=== PATIENT | male | born 1950 | race Caucasian/White ===

== ENCOUNTER 2018-09-13 19:53 | Inpatient (IN) | payer MEDICARE, MEDICAID ==
[~2018-09-13] VITALS: Ht 172.7 cm; Wt 71.7 kg
[~2018-09-13 19:53] MED LIST: ACETAMINOPHEN650 MG RECTAL; BENZTROPINE MESY2 MG ORAL; CLOTRIMAZOLE15 GM TOPIC; COLACE100 MG ORAL; DEPAKOTE250 MG PO; DIAZEPAM10 MG ORAL; ESCITALOPRAM OX20 MG ORAL; FAMOTIDINE40 MG ORAL; LINZESS145 MCG PO; MOM30 ML ORAL; NORCO 5-325 TA1 EACH ORAL; RISPERDAL1 MG PO; SYNALAR 0.01%15 GM EXT; TOPIRAMATE100 MG ORAL; TRAZODONE HCL150 MG ORAL; [UNRECOGNIZED DRUG - CODE] PO
[2018-09-13] MEDS ORDERED: Cefepime HCl 2 GM in NS 110 ML IV STA (19:56)
[2018-09-13] MEDS ORDERED: Acetaminophen 650 MG SUPP RECTAL ONE (20:00)
[2018-09-13] MEDS ORDERED: Vancomycin 1 GM in NS 275 ML IVPB ONE (20:00)
--- NOTE | 2018-09-13 20:00 | Emergency Room Report ---
History of Present Illness General Chief Complaint: To Be Triaged Source: Caregiver Present Illness HPI Patient presents with altered mentation and cough with shortness of breath. The patient is unable to give a history at this time. 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 Nursing Documentation: PMH: Agreed; PSxH: Agreed Nursing Documentation-PMH Hx Cardiac Problems: No Hx Cancer: Yes - skin cancer Hx Gastrointestinal Problems: No Hx Neurological Problems: Yes Hx Seizures: Yes Hx Epilepsy: Yes Review of Systems All Other Systems: limited Physical Exam Vital Signs Date Time Temp Pulse Resp B/P (MAP) Pulse Ox O2 Delivery O2 Flow Rate FiO2 09/13/18 19:57 103.3 78 18 97/49 95 Room Air 09/14/18 03:24 21 09/14/18 10:20 21.0 Sp02 EP Interpretation: reviewed, normal General Appearance: mild distress, Chronically Ill Head: normocephalic Eyes: bilateral eye normal inspection, bilateral eye PERRL ENT: moist mucus membranes Neck: supple Respiratory: rhonchi Cardiovascular #1: regular rate, rhythm Cardiovascular #2: 2+ radial (R) Gastrointestinal: normal inspection, normal bowel sounds, non tender, no mass, non-distended Musculoskeletal: back normal, normal range of motion, other - Atrophy and some flexion contractures Neurologic: other - Minimally responsive and not react to painful stimuli Psychiatric: other - Stupor Skin: normal inspection, warm/dry Medical Decision Making Behavioral: Other Reaction to Intervention: No change Restraint Reassesment I, Irving Alejandre MD, have personally evaluated this patient. Laboratory tests have been reviewed and addressed accordingly. The patient is deemed to present a danger to themselves and/or others. This is based on the exam, history ( provided by patient, EMS/[facility] and/or family) and observed or reported behavior. Attempts for non-invasive measures have been considered and/or attempted, however, have been futile. It is in the best interest of the nursing staff, the patient, and others involved in this patient's care that behavioral restraints be applied. Patient evaluation reveals the following: Diagnostic Impression: Primary Impression: Right lower lobe pneumonia Qualified Codes: J18.1 - Lobar pneumonia, unspecified organism Additional Impressions: Renal insufficiency Hypoxia ER Course Patient presents with fever and cough. Differential includes sepsis, pneumonia , UTI other infection amongst others. Evaluation will be with EKG, chest x-ray and labs. A Keita will be placed. Patient be treated with Tylenol, fluid bolus and IV antibiotics. Patient complex as unable to give history and ill with h/o developmental delay. Patient hypoxemic. Oxygen started. Needs suctioning. EKG with NSR, 74, NSSTTW changes. CXR RLL infiltrate. White count normal. Hypernatremia and elevated BUN. Improved with suctioning and tx. Admit tele Dr. Garcia. Laboratory Tests Test 09/13/18 20:05 09/13/18 21:15 09/13/18 23:30 White Blood Count 8.3 K/UL (4.8-10.8) Red Blood Count 4.27 M/UL (4.70-6.10) L Hemoglobin 13.8 G/DL (14.2-18.0) L Hematocrit 41.3 % (42.0-52.0) L Mean Corpuscular Volume 97 FL (80-99) Mean Corpuscular Hemoglobin 32.3 PG (27.0-31.0) H Mean Corpuscular Hemoglobin Concent 33.4 G/DL (32.0-36.0) Red Cell Distribution Width 13.2 % (11.6-14.8) Platelet Count 145 K/UL (150-450) L Mean Platelet Volume 6.2 FL (6.5-10.1) L Neutrophils (%) (Auto) 57.1 % (45.0-75.0) Lymphocytes (%) (Auto) 23.2 % (20.0-45.0) Monocytes (%) (Auto) 18.3 % (1.0-10.0) H Eosinophils (%) (Auto) 0.1 % (0.0-3.0) Basophils (%) (Auto) 1.3 % (0.0-2.0) Prothrombin Time 10.8 SEC (9.30-11.50) Prothrombin Time INR 1.0 (0.9-1.1) PTT 35 SEC (23-33) H Sodium Level 146 MMOL/L (136-145) H Potassium Level 3.8 MMOL/L (3.5-5.1) Chloride Level 106 MMOL/L (98-107) Carbon Dioxide Level 24 MMOL/L (21-32) Anion Gap 16 mmol/L (5-15) H Blood Urea Nitrogen 20 mg/dL (7-18) H Creatinine 1.4 MG/DL (0.55-1.30) H Estimate Glomerular Filtration Rate 50.4 mL/min (>60) Glucose Level 93 MG/DL (74-106) Lactic Acid Level 1.80 mmol/L (0.4-2.0) 1.20 mmol/L (0.66-2.22) Calcium Level 9.0 MG/DL (8.5-10.1) Phosphorus Level 2.9 MG/DL (2.5-4.9) Magnesium Level 2.1 MG/DL (1.8-2.4) Total Bilirubin 0.3 MG/DL (0.2-1.0) Aspartate Amino Transferase (AST) 23 U/L (15-37) Alanine Aminotransferase (ALT) 14 U/L (12-78) Alkaline Phosphatase 53 U/L (46-116) Total Creatine Kinase 190 U/L (26-308) Troponin I 0.000 ng/mL (0.000-0.056) Pro-B-Type Natriuretic Peptide 954 pg/mL (0-125) H Total Protein 8.1 G/DL (6.4-8.2) Albumin 3.2 G/DL (3.4-5.0) L Globulin 4.9 g/dL Albumin/Globulin Ratio 0.7 (1.0-2.7) L Lipase 88 U/L (73-393) Valproic Acid Level 65 MCG/ML (50-100) Urine Color Yellow Urine Appearance Clear Urine pH 6.5 (4.5-8.0) Urine Specific [place] 1.010 (1.005-1.035) Urine Protein 2+ (NEGATIVE) H Urine Glucose (UA) Negative (NEGATIVE) Urine Ketones 1+ (NEGATIVE) H Urine Blood Negative (NEGATIVE) Urine Nitrite Negative (NEGATIVE) Urine Bilirubin Negative (NEGATIVE) Urine Urobilinogen 1 MG/DL (0.0-1.0) H Urine Leukocyte Esterase 1+ (NEGATIVE) H Urine RBC 0-2 /HPF (0 - 0) H Urine WBC 2-4 /HPF (0 - 0) Urine Squamous Epithelial Cells Occasional /LPF Urine Bacteria Few /HPF (NONE) Urine Mucus Many /LPF (NONE/OCC) H Microbiology Date/Time Source Procedure Growth Status 09/13/18 21:45 Nasal Nares Influenza Types A,B Antigen (NIKHIL) - Final Complete EKG Diagnostic Results Rate: normal Rhythm: NSR ST Segments: no acute changes Rhythm Strip Diag. Results EP Interpretation: yes Rhythm: NSR, no PVC's, no ectopy Chest X-Ray Diagnostic Results Chest X-Ray Diagnostic Results : Chest X-Ray Ordered: Yes # of Views/Limited/Complete: 1 View Indication: Shortness of Breath EP Interpretation: Yes Interpretation: no effusion, no pneumothorax, other - RLL infiltrate Impression: Other Electronically Signed by: Electronically signed by Irving Alejandre MD Last Vital Signs Date Time Temp Pulse Resp B/P (MAP) Pulse Ox O2 Delivery O2 Flow Rate FiO2 09/14/18 00:40 101.2 80 19 103/55 95 Room Air Status: improved Disposition: ADMITTED INPATIENT Condition: Serious Irving Alejandre MD Sep 13, 2018 20:00
--- NOTE | 2018-09-13 20:00 | NUR ---
ED Nurse Note: Patient arrived by walk in along with chronic care nurse. complaint of shortness of breath and congestion x 1 day.
[2018-09-13 20:30] VITALS: BP 103/55
[2018-09-13 20:39] LABS: BASOPHILS % (AUTO) 1.3 % (0.0-2.0); EOSINOPHILS % (AUTO) 0.1 % (0.0-3.0); HEMATOCRIT 41.3 % (42.0-52.0); HEMOGLOBIN 13.8 G/DL (14.2-18.0); LYMPHOCYTES % (AUTO) 23.2 % (20.0-45.0); MEAN CORPUSCULAR VOLUME 97 FL (80-99); MONOCYTES % (AUTO) 18.3 % (1.0-10.0); NEUTROPHILS % (AUTO) 57.1 % (45.0-75.0); PLATELET COUNT 145 K/UL (150-450); RED BLOOD COUNT 4.27 M/UL (4.70-6.10); RED CELL DISTRIBUTION WIDTH 13.2 % (11.6-14.8); WHITE BLOOD COUNT 8.3 K/UL (4.8-10.8)
--- NOTE | 2018-09-13 20:45 | NUR ---
ED Nurse Note: Patient is uncooperative for therapy, restraints applied. Patient caregiver now at bedside.
[2018-09-13 20:55] LABS: ANION GAP 16 mmol/L (5-15); BLOOD UREA NITROGEN 20 mg/dL (7-18); CARBON DIOXIDE 24 MMOL/L (21-32); CHLORIDE 106 MMOL/L (98-107); CREATININE 1.4 MG/DL (0.55-1.30); POTASSIUM 3.8 MMOL/L (3.5-5.1); SODIUM 146 MMOL/L (136-145)
[2018-09-13 21:08] LABS: ALANINE AMINOTRANSFERASE 14 U/L (12-78); ALBUMIN 3.2 G/DL (3.4-5.0); ALBUMIN/GLOBULIN RATIO 0.7 (1.0-2.7); ALKALINE PHOSPHATASE 53 U/L (46-116); ASPARTATE AMINO TRANSFERASE 23 U/L (15-37); BILIRUBIN,TOTAL 0.3 MG/DL (0.2-1.0); CREATINE KINASE 190 U/L (26-308); PHOSPHORUS 2.9 MG/DL (2.5-4.9)
[2018-09-13 21:38] LABS: APPEARANCE,URINE CLEAR; BILIRUBIN, URINE NEGATIVE (NEGATIVE); GLUCOSE, URINE (UA) NEGATIVE (NEGATIVE); KETONES,URINE 1+ (NEGATIVE); LEUKOCYTE ESTERASE ,URINE 1+ (NEGATIVE); NITRITE,URINE NEGATIVE (NEGATIVE); PH,URINE 6.5 (4.5-8.0); PROTEIN,URINE 2+ (NEGATIVE); UROBILINOGEN,URINE 1 MG/DL (0.0-1.0)
[2018-09-13 21:39] LABS: COLOR,URINE YELLOW
[2018-09-13] MEDS ORDERED: OMEPRAZOLE20 M2 ORAL (21:41)
[2018-09-13] MEDS ORDERED: NAMENDA10 MG ORAL (21:44)
[2018-09-13] MEDS ORDERED: MILK OF MA400 MG/51 ORAL (21:44)
[2018-09-13] MEDS ORDERED: MELATONIN 3 MG1 EAC1 PO (21:44)
--- NOTE | 2018-09-13 21:54 | NUR ---
ED Nurse Note: patient is content, awake and alert, nonverbal is baseline. vital signs are stable. O2 applied because patient desaturated to 86%, ERMD aware, RT called to bedside to suction patient. O2 sat improved to 92%.
[2018-09-14] MEDS ORDERED: Tums 500mg ORAL PRN (00:30)
[2018-09-14] MEDS ORDERED: HYDROcodone/Acetamin 5/325 tab ORAL PRN (00:30)
[2018-09-14] MEDS ORDERED: Acetaminophen 650 MG SUPP RECTAL PRN (00:30)
--- NOTE | 2018-09-14 00:40 | NUR ---
ED Nurse Note: Report called in to kalie WICK. patient tolerated transport well. removed nasal canula upon arrival. Patient has no s/s of acute distress.
[2018-09-14 01:00] VITALS: BP 112/59
--- NOTE | 2018-09-14 01:00 | NUR ---
NURSE NOTES: Patient arrived via gurney from ED. Report received from SHAMIKA Pastor. Patient placed into bed with guard rails up and bed placed in lowest position. Patient has been cleaned and dressed with new linens, quality assurance monitor final placed, vital signs are stable, seizure precautions implemented and patient shows no signs of pain and or distress. Will initiate plan of care.
[2018-09-14] MEDS: Albuterol/Ipratropium 3ml neb HHN SCH ×6 (03:24→23:31)
[2018-09-14 04:00] VITALS: BP 159/74
--- NOTE | 2018-09-14 04:21 | NUR ---
NURSE NOTES: Left urgent message for Dr. Garcia for additional admission orders: 1. confirming code status, 2. O2 order/PRN, 3. bilateral wrist restraints. MD was aware that bilateral wrist restraints were placed in the ED. Patient is seen trying to climb out of bed, removing treatment lines and removing IVs. Awaiting call back.
--- NOTE | 2018-09-14 06:28 | NUR ---
NURSE NOTES: Second attempt made to Dr. Garcia urgent line regarding additional admission orders. Awaiting call back.
--- NOTE | 2018-09-14 07:15 | NUR ---
HAND-OFF: Report given to SHAMIKA Zepeda.
--- NOTE | 2018-09-14 07:16 | NUR ---
NURSE NOTES: Received patient in bed. Awake, confused, not cooperating with staff. Placed bed in lowest position.
[2018-09-14 08:00] VITALS: BP 109/80
--- NOTE | 2018-09-14 08:00 | NUR ---
NURSE NOTES: Patient not cooperating with care. Bilateral soft wrist restraints inplace. Patient trying to remove and pull IV lines.
[2018-09-14 08:25] LABS: BASOPHILS % (AUTO) 1.1 % (0.0-2.0); HEMATOCRIT 36.3 % (42.0-52.0); LYMPHOCYTES % (AUTO) 16.1 % (20.0-45.0); MEAN CORPUSCULAR VOLUME 97 FL (80-99); MONOCYTES % (AUTO) 14.7 % (1.0-10.0); NEUTROPHILS % (AUTO) 68.1 % (45.0-75.0); PLATELET COUNT 124 K/UL (150-450); RED BLOOD COUNT 3.75 M/UL (4.70-6.10); RED CELL DISTRIBUTION WIDTH 13.4 % (11.6-14.8); WHITE BLOOD COUNT 6.4 K/UL (4.8-10.8)
[2018-09-14 08:31] LABS: ALANINE AMINOTRANSFERASE 11 U/L (12-78); ALBUMIN 2.3 G/DL (3.4-5.0); ALBUMIN/GLOBULIN RATIO 0.6 (1.0-2.7); ALKALINE PHOSPHATASE 42 U/L (46-116); ANION GAP 11 mmol/L (5-15); ASPARTATE AMINO TRANSFERASE 24 U/L (15-37); BILIRUBIN,TOTAL 0.4 MG/DL (0.2-1.0); BLOOD UREA NITROGEN 17 mg/dL (7-18); CALCIUM 7.7 MG/DL (8.5-10.1); CARBON DIOXIDE 20 MMOL/L (21-32); CHLORIDE 111 MMOL/L (98-107); CREATININE 0.9 MG/DL (0.55-1.30); POTASSIUM 3.6 MMOL/L (3.5-5.1); SODIUM 142 MMOL/L (136-145)
[2018-09-14] MEDS: Azithromycin 500 MG in NS 275 ML IV SCH (08:36)
[2018-09-14] MEDS: Memantine 10mg tab ORAL SCH ×2 (09:23→17:47)
[2018-09-14] MEDS: Topiramate 100mg tab ORAL SCH ×2 (09:23→22:05)
[2018-09-14] MEDS: Docusate 100mg cap ORAL SCH ×2 (09:23→17:33)
[2018-09-14] MEDS: Magnesium Oxide 400mg tab ORAL SCH ×3 (09:24→17:47)
[2018-09-14] MEDS: Heparin 5000 units/ml inj SUBQ SCH ×2 (09:25→21:00)
--- NOTE | 2018-09-14 11:13 | Diagnostic Imaging Report ---
Indication: Shortness of breath Technique: One view of the chest Comparison: Findings: Interim development the pleural spaces remain clear. The heart size is upper limits of normal interstitial and airspace edema, greater on the right than on the left. Impression: Bilateral interstitial and airspace infiltrates versus edema, right greater than left, developing since 09/13/2018
[2018-09-14 12:00] VITALS: BP 90/51
--- NOTE | 2018-09-14 12:25 | Diagnostic Imaging Report ---
Indication: Chest pain Technique: One view of the chest Comparison: none Findings: There is some atelectasis in the right midlung. The lungs and pleural spaces are otherwise clear. The heart size is normal Impression: Midlung atelectasis. No acute process otherwise
--- NOTE | 2018-09-14 13:25 | NUR ---
CASE MANAGEMENT:REVIEW 67 YR OLD MALE FROM HOME WITH CAREGIVER CC: DIFFICULTY BREATHING SI: PNEUMONIA 103.2 78 18 97/49 95% ON RA BUN+20 CR+1.4 IS: IV LEVAQUIN IV CEFEPIME IV VANCOMYCIN BLOOD CX CHEST XRAY : TO TELEMETRY UNIT *INTERQUAL CRITERIA MET
[2018-09-14] MEDS: cefTRIAXone 1gm/D5W 55ml IVPB SCH ×2 (14:52)
[2018-09-14 16:00] VITALS: BP 94/55
--- NOTE | 2018-09-14 18:00 | NUR ---
NURSE NOTES: Tolerating soft diet, assisted with dinner meal.
--- NOTE | 2018-09-14 19:20 | NUR ---
NURSE NOTES: Received report from Yonas Lang RN. Pt is resting in the bed w/o distressin 4L NC. HOB 30 degree. B. wrist soft restrain are applied and asymptomatic. Bed alarm on, bed in lowest, padded side rails up x3, and breaks are engaged. Call light and side table are w/in reach. Will follow plans of care.
--- NOTE | 2018-09-14 19:30 | NUR ---
HAND-OFF: Report given to Deya Stover RN.
[2018-09-14 20:00] VITALS: BP 107/60
[2018-09-14] MEDS ORDERED: TraZODone 50mg tab ORAL ONE (21:00)
--- NOTE | 2018-09-14 23:42 | History & Physical ---
History of Present Illness General Date patient seen: Sep 14, 2018 Reason for Hospitalization: Dyspnea/Respdistress Present Illness HPI 67 year old male with pmh sig for severe mental retardation, PICA, skin cancer with two day history of cough and chest congestion with wheezing and respiratory distress. patient was seen in ER and noted to have possible pneumonia and was pancultured and admitted for IV antibiotics and respiratory treatments. Allergies: Coded Allergies: No Known Allergies (Unverified , 10/20/14) Medication History Scheduled Benztropine Mesylate* (Benztropine Mesylate*), 2 MG ORAL BID, (Reported) Calcium Carbonate ([id number]), 500 MG PO DAILY, (Reported) Clotrimazole* (Lotrimin*), 1 APPLIC TOPIC PRN, (Reported) Diazepam* (Diazepam*), 10 MG ORAL PRN, (Reported) Divalproex Sodium* (Depakote*), 250 MG PO Q12HR, (Reported) Docusate Sodium* (Colace*), 100 MG ORAL TWICE A DAY, (Reported) Escitalopram Oxalate (Escitalopram Oxalate*), 20 MG ORAL DAILY, (Reported) Famotidine (Famotidine), 40 MG ORAL EVERY 12 HOURS, (Reported) Fluocinolone Acet (Fluocinolone Acetonide), 15 GM EXT PRN, (Reported) Linaclotide (Linzess), 145 MCG PO DAILY, (Reported) Magnesium Hydroxide (Milk of Magnesia), 30 ML ORAL DAILY, (Reported) Magnesium Hydroxide* (Milk Of Magnesia*), 30 ML ORAL DAILY, (Reported) Memantine Hcl* (Namenda*), 10 MG ORAL TWICE A DAY, (Reported) Omeprazole (Omeprazole), 20 MG ORAL DAILY, (Reported) Risperidone* (Risperdal*), 3 MG PO BID, (Reported) Topiramate* (Topamax*), 100 MG ORAL TWICE A DAY, (Reported) Trazodone* (Trazodone*), 150 MG ORAL BEDTIME, (Reported) Scheduled PRN Acetaminophen* (Acetaminophen*), 650 MG RECTAL Q6H PRN for For Pain, (Reported) Hydrocodone Bit/Acetaminophen 5-325* (Andrews 5-325*), 1 TAB ORAL Q6H PRN for For Pain, (Reported) Miscellaneous Medications Melatonin/Pyridoxine HCl (B6) (Melatonin 3 mg Tablet), 1 EACH PO, (Reported) Patient History Limited by: medical condition History Provided By: Medical Record, Caregiver Healthcare decision maker [facility] Resuscitation status Full Code Advanced Directive on File Patient History Narrative PICA, seizure didorder, severe mental retardation, skin cancer Family History Family History: Patient reports no known family medical history. Review of Systems Review of Symptoms General ROS: no weight loss or fever Psychological ROS: no depression or mood changes, no memory loss Ophthalmic ROS: no visual changes or eye irritation ENT ROS: no nasal congestion, hearing loss, dizziness Allergy and Immunology ROS: no allergic symptoms or urticaria Hematological and Lymphatic ROS: no swollen glands, unusual bleeding or bruising Endocrine ROS: no polyuria, polydipsia, weight changes, temperature intolerance Respiratory ROS: no cough, shortness of breath, or wheezing Cardiovascular ROS: no chest pain or dyspnea on exertion Gastrointestinal ROS: denies abdominal pain, bright red blood in stool. Musculoskeletal ROS: no myalgias or arthralgias Neurological ROS: no TIA or stroke symptoms Dermatological ROS: no new or changing skin lesions, rashes or pruritis Physical Exam Physical Exam General appearance: alert, cooperative, no distress, appears stated age Head: Normocephalic, without obvious abnormality, atraumatic Eyes: conjunctivae/corneas clear. PERRL, EOM's intact. Fundi benign Throat: Lips, mucosa, and tongue normal. Teeth and gums normal Neck: supple, symmetrical, trachea midline, no adenopathy, thyroid: not enlarged, symmetric, no tenderness/mass/nodules, no carotid bruit and no JVD Lungs: clear to auscultation bilaterally Heart: regular rate and rhythm, S1, S2 normal, no murmur, click, rub or gallop Abdomen: soft, non-tender. Bowel sounds normal. No masses, no organomegaly Extremities: extremities normal, atraumatic, no cyanosis or edema Pulses: 2+ and symmetric Skin: Skin color, texture, turgor normal. No rashes or lesions Neurologic: Grossly normal Last 24 Hour Vital Signs Date Time Temp Pulse Resp B/P (MAP) Pulse Ox O2 Delivery O2 Flow Rate FiO2 09/14/18 20:10 74 18 97 Nasal Cannula 2.0 28 09/14/18 20:00 94 Nasal Cannula 2.0 28 09/14/18 20:00 Nasal Cannula 2.0 28 09/14/18 20:00 71 18 94 Nasal Cannula 2.0 28 09/14/18 16:00 98.1 73 20 94/55 (68) 95 09/14/18 16:00 Nasal Cannula 4.0 09/14/18 15:34 70 09/14/18 15:27 98 20 98 Room Air 21 09/14/18 15:27 98 20 98 Room Air 21.0 09/14/18 15:18 68 18 92 Room Air 21 09/14/18 15:18 68 18 92 Room Air 21 09/14/18 12:00 97.5 92 20 90/51 (64) 94 09/14/18 11:50 Venturi Mask 09/14/18 11:37 70 09/14/18 10:20 90 10 96 Room Air 21.0 09/14/18 10:20 90 20 96 Room Air 21 09/14/18 10:15 88 20 96 Room Air 21 09/14/18 10:15 88 20 96 Room Air 21 09/14/18 09:00 Room Air 09/14/18 08:00 97.7 78 18 109/80 (90) 95 09/14/18 07:48 77 09/14/18 07:13 90 20 97 Room Air 21 09/14/18 07:07 80 20 95 Room Air 21 09/14/18 04:18 88 20 Room Air 21 09/14/18 04:00 98.9 55 17 159/74 (102) 100 09/14/18 03:39 84 09/14/18 03:34 89 20 95 Room Air 21 09/14/18 03:24 86 20 94 Room Air 21 09/14/18 01:00 98.0 73 17 112/59 (76) 90 09/14/18 01:00 Room Air 09/14/18 01:00 Room Air 09/14/18 00:40 101.2 80 19 103/55 95 Room Air Intake and Output 09/13/18 09/14/18 18:59 06:59 Intake Total 3100 ml Balance 3100 ml Intake Oral 0 ml IV Total 3100 ml # Bowel Movements 2 Laboratory Tests Test 09/14/18 07:35 White Blood Count 6.4 K/UL (4.8-10.8) Red Blood Count 3.75 M/UL (4.70-6.10) L Hemoglobin 12.0 G/DL (14.2-18.0) L Hematocrit 36.3 % (42.0-52.0) L Mean Corpuscular Volume 97 FL (80-99) Mean Corpuscular Hemoglobin 31.9 PG (27.0-31.0) H Mean Corpuscular Hemoglobin Concent 33.0 G/DL (32.0-36.0) Red Cell Distribution Width 13.4 % (11.6-14.8) Platelet Count 124 K/UL (150-450) L Mean Platelet Volume 6.3 FL (6.5-10.1) L Neutrophils (%) (Auto) 68.1 % (45.0-75.0) Lymphocytes (%) (Auto) 16.1 % (20.0-45.0) L Monocytes (%) (Auto) 14.7 % (1.0-10.0) H Eosinophils (%) (Auto) 0.0 % (0.0-3.0) Basophils (%) (Auto) 1.1 % (0.0-2.0) Sodium Level 142 MMOL/L (136-145) Potassium Level 3.6 MMOL/L (3.5-5.1) Chloride Level 111 MMOL/L (98-107) H Carbon Dioxide Level 20 MMOL/L (21-32) L Anion Gap 11 mmol/L (5-15) Blood Urea Nitrogen 17 mg/dL (7-18) Creatinine 0.9 MG/DL (0.55-1.30) Estimat Glomerular Filtration Rate > 60 mL/min (>60) Glucose Level 86 MG/DL (74-106) Calcium Level 7.7 MG/DL (8.5-10.1) L Total Bilirubin 0.4 MG/DL (0.2-1.0) Aspartate Amino Transf (AST/SGOT) 24 U/L (15-37) Alanine Aminotransferase (ALT/SGPT) 11 U/L (12-78) L Alkaline Phosphatase 42 U/L (46-116) L Total Protein 6.1 G/DL (6.4-8.2) L Albumin 2.3 G/DL (3.4-5.0) L Globulin 3.8 g/dL Albumin/Globulin Ratio 0.6 (1.0-2.7) L Height (Feet): 5 Height (Inches): 8.00 Weight (Pounds): 160 Medications Current Medications Medications (Trade) Dose Ordered Sig/Adams Route PRN Reason Start Time Stop Time Status Last Admin Dose Admin Acetaminophen (Tylenol) 650 mg Q6H PRN RECTAL Mild Pain (Pain Scale 1-3) 09/14/18 00:30 10/14/18 00:29 Acetaminophen/ Hydrocodone Bitart (Andrews 5/325) 1 tab Q6H PRN ORAL For Pain 09/14/18 00:30 09/21/18 00:29 Albuterol/ Ipratropium (Albuterol/ Ipratropium) 3 ml Q4HRT HHN 09/14/18 03:00 09/19/18 02:59 09/14/18 20:00 Azithromycin 500 mg/Sodium Chloride 275 ml @ 275 mls/hr DAILY IV 09/14/18 09:00 09/21/18 08:59 09/14/18 08:36 Calcium Carbonate (Tums) 500 mg Q3H PRN ORAL flatulence 09/14/18 00:30 10/14/18 00:29 Ceftriaxone Sodium 1 gm/ Dextrose 55 ml @ 110 mls/hr DAILY IVPB 09/14/18 15:00 09/21/18 14:59 09/14/18 14:52 Divalproex Sodium (Depakote) 250 mg EVERY 12 HOURS ORAL 09/14/18 09:00 10/14/18 08:59 09/14/18 22:06 Docusate Sodium (Colace) 100 mg TWICE A DAY ORAL 09/14/18 09:00 10/14/18 08:59 09/14/18 09:23 Escitalopram Oxalate (Lexapro) 20 mg DAILY ORAL 09/14/18 09:00 10/14/18 08:59 09/14/18 09:24 Heparin Sodium (Porcine) (Heparin 5000 units/ml) 5,000 units EVERY 12 HOURS SUBQ 09/14/18 09:00 10/14/18 08:59 09/14/18 09:25 Magnesium Oxide (Mag-Ox 400mg) 400 mg THREE TIMES A DAY ORAL 09/14/18 09:00 10/14/18 08:59 09/14/18 17:47 Memantine (Namenda) 10 mg BID ORAL 09/14/18 09:00 10/14/18 08:59 09/14/18 17:47 Risperidone (RisperDAL) 3 mg BID ORAL 09/14/18 09:00 10/14/18 08:59 09/14/18 17:47 Topiramate (Topamax) 100 mg EVERY 12 HOURS ORAL 09/14/18 09:00 10/14/18 08:59 09/14/18 22:05 MIPS Hospital declaration INPATIENT level of care is warranted for this patient because patient is a 89 year old with who presents with suspicion of . I have a high level of concern because . Patient is at high risk for . Plan of care/treatment include . Patient care is expected to be greater than 2 midnights. OBSERVATION level of care is warranted for this patient. Patient is a 89 year old with who presents with . Patient will be admitted for 1 midnight, but if additional night(s) is/are necessary, patient will be converted to inpatient status for the entire hospitalization Disposition: Once the patient is stable to leave the hospital, I anticipate the patient will likely be discharged to the following environment: Estimated discharge date: I spent 70 minutes on this patient's case, and minutes was dedicated to counseling and/or care coordination. MIPS (Merit-based Incentive Payment System) Applicable CPT: 74551, 73204 CHECK ALL THAT ARE MET: Measure #5 (CHF): All ages. Prescribe SANJEEV/ARB upon discharge for patients with left ventricular systolic dysfunction. If not, the reason is clearly documented in the medical chart. Measure #8 (CHF): All ages. Prescribe a beta live upon discharge for patients with left ventricular systolic dysfunction. If not, the reason is clearly documented in the medical chart. Measure #47 Advance care plan or surrogate decision maker documented in the medical record. Measure #130 The provider has documented, updated, or reviewed the patients current medication list and has documented it in the patients note. Measure #374 (All): Send report to referring provider. Measure #407(Sepsis due to MSSA bacteremia): Age 18+ Patient treated with a beta-lactam antibiotic (Nafcillin, Oxacillin or Cefazolin) as definitive therapy. MEDICAL COMPLEXITY High complexity medical decision making (need 2/3 categories) Problem - need 4 points Acute/new problem with new plan for workup (4 points, 1 max) Acute/new problem without additional workup (3 points, 1 max) Unstable chronic problem actively being managed (2 point each, 2 max) Stable chronic problem actively being managed (1 point each, 2 max) Self-limited/transient process (constipation, muscle ache, etc) (1 point each , 2 max) Data - need 4 points Reviewed labs/imaging studies (1 points, 2 max) Independent review of imaging (EKG, xrays, etc) (2 points, 2 max) Discussed case with consult/other MD/RN (2 points, 2 max) High Risk - qualify if have one of the following: Severe exacerbation of acute problem, acute mental status change, IV narcotics , monitoring drug levels (vancomycin, INR, tacrolimus etc) Assessment/Plan Problems: (1) Right lower lobe pneumonia (2) Constipation (3) Depression (4) Seizure disorder (5) Mental retardation (6) Development delay (7) Renal insufficiency (8) Hypoxia Assessment/Plan plan: - admit to med/surg - Duoneb q 4 - oxygen 2 L nc - ID and cardiology consult - echo - repeat chest xray - IV Ceftriaxone and Azithromycin - VTE prophylaxis with Heparin sq bid - Tylenol Prn pain fever - Psychiatry consult for agitation - soft bilateral wrist restraints - clinical laboratory director to assist with meals - pica precautions discussed with nurse - am labs Orlin Garcia MD Sep 14, 2018 23:42
[2018-09-15] VITALS (8 sets, daily range): BP systolic 99–145; BP diastolic 50–77
--- NOTE | 2018-09-15 00:44 | NUR ---
NURSE NOTES: Pt was cleaned, dried, and repositioned. No distress noted. Will continue to monitor.
[2018-09-15] MEDS: Albuterol/Ipratropium 3ml neb HHN SCH ×5 (03:52→19:00)
--- NOTE | 2018-09-15 03:59 | NUR ---
HAND-OFF: Report given to SHAMIKA Osorio.
--- NOTE | 2018-09-15 04:00 | NUR ---
NURSE NOTES: Received report from Lew Ferreira RN. Patient in bed with HOB elevated at semi fowlers with no S/S of acute pain at this time. Kept clean, dry, and comfortable in bed at all times. Patient is non-verbal but reacts to tactile and verbal stimuli. IV line intact and patent and kept SL. Placed on continuous cardiac monitoring per protocol. Bilateral soft wrist restraints in place d/t pulling out of tubes and trying to get out of bed, and renewal order made. Patient is incontinent and is turned Q2 and cleaned PRN. Safety precaution in place; siderails X3 up, call light within reach, bed in lowest position, brakes and alarm on at all times. Placed on Venturi mask at this time at 35% Fi02 at 6L, tolerating well with no S./S of resp distress or SOB; saturating at 95-96%. Needs and wants anticipated and attended, will continue plan of care and monitor for any cghanges noted.
--- NOTE | 2018-09-15 07:10 | NUR ---
HAND-OFF: Report given to Devan Daniels RN. Patient in bed awake with no S/S of distress or SOB. Endorsed plan of care.
[2018-09-15] MEDS: Azithromycin 500 MG in NS 275 ML IV SCH (09:00)
[2018-09-15] MEDS: Heparin 5000 units/ml inj SUBQ SCH ×2 (09:00→20:56)
[2018-09-15] MEDS: Topiramate 100mg tab ORAL SCH ×2 (09:52→20:54)
[2018-09-15] MEDS: Docusate 100mg cap ORAL SCH ×2 (09:52→17:14)
[2018-09-15] MEDS: Magnesium Oxide 400mg tab ORAL SCH ×3 (09:52→17:14)
[2018-09-15] MEDS: Memantine 10mg tab ORAL SCH (10:12)
--- NOTE | 2018-09-15 10:14 | Cardiac Electrophysiology PN ---
Subjective Subjective [id number] Objective Last 24 Hour Vital Signs Date Time Temp Pulse Resp B/P (MAP) Pulse Ox O2 Delivery O2 Flow Rate FiO2 09/15/18 07:15 80 18 97 Venturi Mask 6.0 35 09/15/18 07:09 Venturi Mask 6.0 35 09/15/18 07:09 90 18 96 Venturi Mask 6.0 35 09/15/18 07:09 96 Venturi Mask 6.0 35 09/15/18 04:02 74 18 97 Venturi Mask 6.0 35 09/15/18 04:00 98.0 52 18 145/66 (92) 97 09/15/18 04:00 69 09/15/18 03:52 77 18 95 Venturi Mask 6.0 35 09/15/18 00:00 98.9 86 18 107/63 (78) 97 09/14/18 23:41 77 18 96 Venturi Mask 6.0 35 09/14/18 23:31 73 18 92 Nasal Cannula 2.0 28 09/14/18 23:29 72 09/14/18 21:00 Venturi Mask 6.0 09/14/18 20:10 74 18 97 Nasal Cannula 2.0 28 09/14/18 20:00 98.8 74 18 107/60 (76) 95 09/14/18 20:00 94 Nasal Cannula 2.0 28 09/14/18 20:00 Nasal Cannula 2.0 28 09/14/18 20:00 71 18 94 Nasal Cannula 2.0 28 09/14/18 19:27 79 09/14/18 16:00 98.1 73 20 94/55 (68) 95 09/14/18 16:00 Nasal Cannula 4.0 09/14/18 15:34 70 09/14/18 15:27 98 20 98 Room Air 21 09/14/18 15:27 98 20 98 Room Air 21.0 09/14/18 15:18 68 18 92 Room Air 21 09/14/18 15:18 68 18 92 Room Air 21 09/14/18 12:00 97.5 92 20 90/51 (64) 94 09/14/18 11:50 Venturi Mask 09/14/18 11:37 70 09/14/18 10:20 90 10 96 Room Air 21.0 09/14/18 10:20 90 20 96 Room Air 21 09/14/18 10:15 88 20 96 Room Air 21 09/14/18 10:15 88 20 96 Room Air 21 Intake and Output 09/14/18 09/15/18 19:00 07:00 Intake Total 570 ml Balance 570 ml Intake Oral 240 ml IV Total 330 ml # Voids 1 2 # Bowel Movements 2 Laboratory Tests Test 09/15/18 05:23 Pro-B-Type Natriuretic Peptide 2295 pg/mL (0-125) H Microbiology Date/Time Source Procedure Growth Status 09/13/18 20:05 Blood Blood Culture - Preliminary NO GROWTH AFTER 24 HOURS Resulted 09/13/18 20:00 Blood Blood Culture - Preliminary NO GROWTH AFTER 24 HOURS Resulted 09/13/18 21:45 Nasal Nares Influenza Types A,B Antigen (NIKHIL) - Final Complete Sebas Momin MD Sep 15, 2018 10:14
[2018-09-15] MEDS: cefTRIAXone 1gm/D5W 55ml IVPB SCH ×2 (10:15)
[2018-09-15] MEDS ORDERED: LORazepam 1mg tab ORAL PRN (12:00)
--- NOTE | 2018-09-15 12:49 | General Progress Note ---
Assessment/Plan Problem List: (1) Right lower lobe pneumonia ICD Codes: J18.1 - Lobar pneumonia, unspecified organism SNOMED: 217117592 (2) Constipation ICD Codes: K59.00 - Constipation SNOMED: 62419019 (3) Depression ICD Codes: F32.9 - Depression SNOMED: 70413812 (4) Seizure disorder ICD Codes: G40.909 - Seizure disorder SNOMED: 653068109 (5) Mental retardation ICD Codes: F79 - Mental retardation SNOMED: 93224085 (6) Development delay ICD Codes: R62.50 - Development delay SNOMED: 860486046 (7) Renal insufficiency ICD Codes: N28.9 - Disorder of kidney and ureter, unspecified SNOMED: 623355422, 727118179 (8) Hypoxia ICD Codes: R09.02 - Hypoxemia SNOMED: 084162532, 914208658 Status: doing well Assessment/Plan Assessment/Plan Problems: (1) Right lower lobe pneumonia (2) Constipation (3) Depression (4) Seizure disorder (5) Mental retardation (6) Development delay (7) Renal insufficiency (8) Hypoxia Assessment/Plan plan: - admit to med/surg - Duoneb q 4 - oxygen 2 L nc - ID and cardiology consult - echo - repeat chest xray - IV Ceftriaxone and Azithromycin - VTE prophylaxis with Heparin sq bid - Tylenol Prn pain fever - Psychiatry consult for agitation - soft bilateral wrist restraints - import export clerk to assist with meals - pica precautions discussed with nurse - am labs fu cardiology recommendations ID consult pending ok to dc telemetry Subjective Date patient seen: Sep 15, 2018 Allergies: Coded Allergies: No Known Allergies (Unverified , 10/20/14) All Systems: reviewed and negative except above Objective Last 24 Hour Vital Signs Date Time Temp Pulse Resp B/P (MAP) Pulse Ox O2 Delivery O2 Flow Rate FiO2 09/15/18 10:24 82 18 96 Nasal Cannula 3.0 32 09/15/18 10:14 88 18 94 Room Air 21 09/15/18 08:00 98.9 72 20 117/65 (82) 96 09/15/18 07:55 67 09/15/18 07:15 80 18 97 Venturi Mask 6.0 35 09/15/18 07:09 Venturi Mask 6.0 35 09/15/18 07:09 90 18 96 Venturi Mask 6.0 35 09/15/18 07:09 96 Venturi Mask 6.0 35 09/15/18 04:02 74 18 97 Venturi Mask 6.0 35 09/15/18 04:00 98.0 52 18 145/66 (92) 97 09/15/18 04:00 69 09/15/18 03:52 77 18 95 Venturi Mask 6.0 35 09/15/18 00:00 98.9 86 18 107/63 (78) 97 09/14/18 23:41 77 18 96 Venturi Mask 6.0 35 09/14/18 23:31 73 18 92 Nasal Cannula 2.0 28 09/14/18 23:29 72 09/14/18 21:00 Venturi Mask 6.0 09/14/18 20:10 74 18 97 Nasal Cannula 2.0 28 09/14/18 20:00 98.8 74 18 107/60 (76) 95 09/14/18 20:00 94 Nasal Cannula 2.0 28 09/14/18 20:00 Nasal Cannula 2.0 28 09/14/18 20:00 71 18 94 Nasal Cannula 2.0 28 09/14/18 19:27 79 09/14/18 16:00 98.1 73 20 94/55 (68) 95 09/14/18 16:00 Nasal Cannula 4.0 09/14/18 15:34 70 09/14/18 15:27 98 20 98 Room Air 21 09/14/18 15:27 98 20 98 Room Air 21.0 09/14/18 15:18 68 18 92 Room Air 21 09/14/18 15:18 68 18 92 Room Air 21 Intake and Output 09/14/18 09/15/18 19:00 07:00 Intake Total 570 ml Balance 570 ml Intake Oral 240 ml IV Total 330 ml # Voids 1 2 # Bowel Movements 2 Laboratory Tests 09/15/18 05:23: Pro-B-Type Natriuretic Peptide 2295H Height (Feet): 5 Height (Inches): 8.00 Weight (Pounds): 160 General Appearance: no apparent distress, alert EENT: PERRL/EOMI, pharynx normal Neck: non-tender, supple Cardiovascular: normal rate, regular rhythm, no gallop/murmur, no JVD Respiratory/Chest: chest wall non-tender, normal breath sounds, no respiratory distress Abdomen: non tender, soft, no mass Extremities: non-tender, normal inspection, no calf tenderness Edema: no edema noted Arm (L), no edema noted Arm (R), no edema noted Leg (L), no edema noted Leg (R), no edema noted Pedal (L), no edema noted Pedal (R), no edema noted Generalized Neurologic: alert Skin: warm/dry Lymphatic: normal anterior cervical (L), normal anterior cervical (R), normal posterior cervical (L), normal posterior cervical (R), normal submandibular (L) , normal submandibular (R), normal supraclavicular (L), normal supraclavicular ( R), normal axillary (L), normal axillary (R), normal inguinal (L), normal inguinal (R), normal other Orlin Garcia MD Sep 15, 2018 12:49
--- NOTE | 2018-09-15 14:40 | NUR ---
NURSE NOTES: Received report from SHAMIKA Hobbs from Telemetry. pt in bed, awake, nonverbal, developmentally delayed, tacks movements with eyes and head, spontaneous eye opening, smiling, no apparent distress, vitals obtain, placed pt on 2L NC, padded side rails per seizure precautions, bed in lowest position, call light within reach.
[2018-09-15] MEDS ORDERED: HYDROcodone/Acetamin 5/325 tab ORAL PRN (15:00)
--- NOTE | 2018-09-15 15:27 | Infectious Diseases Prog Note ---
Assessment/Plan Assessment/Plan Full consult dictated: A) 1) CAP, fevers 2) pmh noted 3) allergies - nkda P) 1) rocephin and azithromycin 2) check sc, labs and chest x-ray 3) check legionella and mycoplasma serology 4) thank you Subjective Allergies: Coded Allergies: No Known Allergies (Unverified , 10/20/14) Objective Vital Signs Last 24 Hour Vital Signs Date Time Temp Pulse Resp B/P (MAP) Pulse Ox O2 Delivery O2 Flow Rate FiO2 09/15/18 14:53 75 14 99/77 (84) 93 09/15/18 12:00 98.3 71 20 102/50 (67) 95 09/15/18 12:00 75 09/15/18 10:24 82 18 96 Nasal Cannula 3.0 32 09/15/18 10:14 88 18 94 Room Air 21 09/15/18 09:00 Nasal Cannula 2.0 09/15/18 08:00 98.9 72 20 117/65 (82) 96 09/15/18 07:55 67 09/15/18 07:15 80 18 97 Venturi Mask 6.0 35 09/15/18 07:09 Venturi Mask 6.0 35 09/15/18 07:09 90 18 96 Venturi Mask 6.0 35 09/15/18 07:09 96 Venturi Mask 6.0 35 09/15/18 04:02 74 18 97 Venturi Mask 6.0 35 09/15/18 04:00 98.0 52 18 145/66 (92) 97 09/15/18 04:00 69 09/15/18 03:52 77 18 95 Venturi Mask 6.0 35 09/15/18 00:00 98.9 86 18 107/63 (78) 97 09/14/18 23:41 77 18 96 Venturi Mask 6.0 35 09/14/18 23:31 73 18 92 Nasal Cannula 2.0 28 09/14/18 23:29 72 09/14/18 21:00 Venturi Mask 6.0 09/14/18 20:10 74 18 97 Nasal Cannula 2.0 28 09/14/18 20:00 98.8 74 18 107/60 (76) 95 09/14/18 20:00 94 Nasal Cannula 2.0 28 09/14/18 20:00 Nasal Cannula 2.0 28 09/14/18 20:00 71 18 94 Nasal Cannula 2.0 28 09/14/18 19:27 79 09/14/18 16:00 98.1 73 20 94/55 (68) 95 09/14/18 16:00 Nasal Cannula 4.0 09/14/18 15:34 70 09/14/18 15:27 98 20 98 Room Air 21 09/14/18 15:27 98 20 98 Room Air 21.0 Height (Feet): 5 Height (Inches): 8.00 Weight (Pounds): 160 Microbiology Date/Time Source Procedure Growth Status 09/13/18 20:05 Blood Blood Culture - Preliminary NO GROWTH AFTER 24 HOURS Resulted 09/13/18 20:00 Blood Blood Culture - Preliminary NO GROWTH AFTER 24 HOURS Resulted 09/13/18 21:45 Nasal Nares Influenza Types A,B Antigen (NIKHIL) - Final Complete 09/13/18 03:45 Sputum Gram Stain - Final Resulted 09/13/18 03:45 Sputum Sputum Culture Pending Resulted Laboratory Tests Test 09/15/18 05:23 Pro-B-Type Natriuretic Peptide 2295 pg/mL (0-125) H Current Medications Medications (Trade) Dose Ordered Sig/Adams Route PRN Reason Start Time Stop Time Status Last Admin Dose Admin Acetaminophen (Tylenol) 650 mg Q6H PRN RECTAL Mild Pain (Pain Scale 1-3) 09/15/18 16:00 10/14/18 15:59 Acetaminophen/ Hydrocodone Bitart ([place] 5/325) 1 tab Q6H PRN ORAL For Pain 09/15/18 15:00 09/21/18 14:59 Albuterol/ Ipratropium (Albuterol/ Ipratropium) 3 ml Q4HRT HHN 09/15/18 15:00 09/19/18 02:59 Azithromycin 500 mg/Sodium Chloride 275 ml @ 275 mls/hr DAILY IV 09/16/18 09:00 09/21/18 08:59 Calcium Carbonate (Tums) 500 mg Q3H PRN ORAL flatulence 09/15/18 15:30 10/14/18 00:29 Ceftriaxone Sodium 1 gm/ Dextrose 55 ml @ 110 mls/hr DAILY@1000 IVPB 09/16/18 10:00 09/23/18 09:59 Divalproex Sodium (Depakote) 250 mg EVERY 12 HOURS ORAL 09/15/18 21:00 10/14/18 08:59 Docusate Sodium (Colace) 100 mg TWICE A DAY ORAL 09/15/18 18:00 10/14/18 08:59 Escitalopram Oxalate (Lexapro) 20 mg DAILY ORAL 09/16/18 09:00 10/14/18 08:59 Heparin Sodium (Porcine) (Heparin 5000 units/ml) 5,000 units EVERY 12 HOURS SUBQ 09/15/18 21:00 10/14/18 08:59 Lorazepam (Ativan) 1 mg Q6H PRN ORAL For Anxiety 09/15/18 15:00 09/22/18 14:59 Magnesium Oxide (Mag-Ox 400mg) 400 mg THREE TIMES A DAY ORAL 09/15/18 18:00 10/14/18 08:59 Risperidone (RisperDAL) 3 mg BID ORAL 09/15/18 18:00 10/14/18 08:59 Topiramate (Topamax) 100 mg EVERY 12 HOURS ORAL 09/15/18 21:00 10/14/18 08:59 Peyman Garcia MD Sep 15, 2018 15:27
[2018-09-15] MEDS ORDERED: Tums 500mg ORAL PRN (15:30)
[2018-09-15] MEDS ORDERED: Acetaminophen 650 MG SUPP RECTAL PRN (16:00)
--- NOTE | 2018-09-15 18:12 | Cardiology Report ---
APPROVED REPORT EXAM: Two-dimensional and M-mode echocardiogram with Doppler and color Doppler. INDICATION Shortness of breath M-Mode DIMENSIONS IVSd1.0 (0.7-1.1cm)Left Atrium (MM)3.3 (1.6-4.0cm) LVDd5.1 (3.5-5.6cm)Aortic Root4.4 (2.0-3.7cm) PWd1.1 (0.7-1.1cm)Aortic Cusp Exc.2.1 (1.5-2.0cm) LVDs3.3 (2.5-4.0cm) PWs1.2 cm Other Information Technically limited study due to patient's resistance . Normal left ventricular chamber size, systolic function and wall motion. Left ventricular ejection fraction estimated to be 50- 55 %. Mild left ventricular hypertrophy. No evidence of pericardial effusion. All other cardiac chamber sizes are within normal limits. Focal aortic valve sclerosis with adequate cusp excursion. Thickened mitral valve leaflets with normal excursion. Mitral annulus and aortic root calcification. Aortic root and ascending AO mild dilatation. Normal pulmonic valve structure. Normal tricuspid valve structure. Subcostal views not obtained due to patient's resistance. A color flow and spectral Doppler study was performed and revealed: Mild aortic regurgitation. Trace mitral regurgitation. Mitral diastolic velocities suggest reduced left ventricular relaxation c/w mild LV diastolic dysfunction (Grade I). Mild tricuspid regurgitation. Tricuspid systolic velocities suggests peak right ventricular systolic pressure of 38 mmHg, consistent with mild pulmonary hypertension.
--- NOTE | 2018-09-15 19:15 | Consultation ---
DATE OF CONSULTATION: 09/15/2018 CARDIOLOGY CONSULTATION CONSULTING PHYSICIAN: Sebas Momin M.D. REFERRING PHYSICIAN: Orlin Garcia M.D. REASON FOR CONSULTATION: Shortness of breath and congestive heart failure. HISTORY OF PRESENT ILLNESS: The patient is a 67-year-old gentleman with history of severe mental retardation and history of skin cancer, who was brought to the emergency room for two days of cough, chest congestion, wheezing, and respiratory distress. The patient was evaluated in the emergency room, and was admitted with possible pneumonia, and was cultured. There was also a question of a congestive heart failure. At the time of my evaluation, the patient is not able to provide any information as in restraints. REVIEW OF SYSTEMS: Cannot be obtained. PAST MEDICAL HISTORY: 1. Mental retardation. 2. History of hypertension. MEDICATIONS: Per reconciliation. FAMILY HISTORY: Noncontributory. PHYSICAL EXAMINATION: VITAL SIGNS: Shows blood pressure of , pulse is 80, respirations 18, and he is afebrile. His heart rate was as low as 52 before. HEAD AND NECK: Showed no JVD. LUNGS: Coarse rhonchi bilaterally. CARDIOVASCULAR: Regular S1 and S2 with no gallop or murmur. ABDOMEN: Soft. EXTREMITIES: No pitting edema. LABORATORY AND DIAGNOSTIC DATA: Labs show white count of 6.4, hemoglobin of 12, hematocrit 36.3, and platelet count of 124,000. Sodium 142, potassium 3.6, BUN of 17, creatinine 0.9, and glucose of 86. His BNP is 2295. His valproic acid is 65. Urinalysis showed 1+ ketone. His echocardiogram showed ejection fraction of 55%. ASSESSMENT AND PLAN: 1. Mild congestive heart failure. Elevated brain natriuretic peptide of more than 200. However, clinically the patient is euvolemic and echocardiogram showed normal left ventricular systolic function. I think the primary reason for patient's shortness of breath is his pneumonia, for which he is already on antibiotic. 2. Pneumonia, on ceftriaxone and azithromycin. 3. Mental retardation. 4. History of seizure disorder, on Risperdal and Lexapro. 5. History of skin cancer. Thank you very much, Dr. Garcia for allowing me to participate in the care of this patient. Please do not hesitate to contact me for any questions regarding my evaluation. Sebas Momin M.D. DR: RANJIT JOB#: [id number] CC:
--- NOTE | 2018-09-15 19:39 | Consultation ---
History of Present Illness General Chief Complaint: Dyspnea/Respdistress Present Illness HPI 67 year old male with pmh for psychosis severe mental retardation, PICA, skin cancer. the pt is confused and agitated. the pt has waxing and waning of consciousness Allergies: Coded Allergies: No Known Allergies (Unverified , 10/20/14) Medication History Scheduled Benztropine Mesylate* (Benztropine Mesylate*), 2 MG ORAL BID, (Reported) Calcium Carbonate ([id number]), 500 MG PO DAILY, (Reported) Clotrimazole* (Lotrimin*), 1 APPLIC TOPIC PRN, (Reported) Diazepam* (Diazepam*), 10 MG ORAL PRN, (Reported) Divalproex Sodium* (Depakote*), 250 MG PO Q12HR, (Reported) Docusate Sodium* (Colace*), 100 MG ORAL TWICE A DAY, (Reported) Escitalopram Oxalate (Escitalopram Oxalate*), 20 MG ORAL DAILY, (Reported) Famotidine (Famotidine), 40 MG ORAL EVERY 12 HOURS, (Reported) Fluocinolone Acet (Fluocinolone Acetonide), 15 GM EXT PRN, (Reported) Linaclotide (Linzess), 145 MCG PO DAILY, (Reported) Magnesium Hydroxide (Milk of Magnesia), 30 ML ORAL DAILY, (Reported) Magnesium Hydroxide* (Milk Of Magnesia*), 30 ML ORAL DAILY, (Reported) Memantine Hcl* (Namenda*), 10 MG ORAL TWICE A DAY, (Reported) Omeprazole (Omeprazole), 20 MG ORAL DAILY, (Reported) Risperidone* (Risperdal*), 3 MG PO BID, (Reported) Topiramate* (Topamax*), 100 MG ORAL TWICE A DAY, (Reported) Trazodone* (Trazodone*), 150 MG ORAL BEDTIME, (Reported) Scheduled PRN Acetaminophen* (Acetaminophen*), 650 MG RECTAL Q6H PRN for For Pain, (Reported) Hydrocodone Bit/Acetaminophen 5-325* ([place] 5-325*), 1 TAB ORAL Q6H PRN for For Pain, (Reported) Miscellaneous Medications Melatonin/Pyridoxine HCl (B6) (Melatonin 3 mg Tablet), 1 EACH PO, (Reported) Patient History Limited by: medical condition History Provided By: Medical Record, PMD Healthcare decision maker Resuscitation status Full Code Advanced Directive on File Past Medical/Surgical History Past Medical/Surgical History: (1) Renal insufficiency (2) Hypoxia (3) Constipation (4) Depression (5) Seizure disorder (6) Mental retardation (7) Development delay (8) Right lower lobe pneumonia Review of Systems Psychiatric: Reports: prior hx, anxiety, emotional problems, hallucinations Physical Exam General Appearance: alert, confused, agitated Last 24 Hour Vital Signs Date Time Temp Pulse Resp B/P (MAP) Pulse Ox O2 Delivery O2 Flow Rate FiO2 09/15/18 16:00 97.9 61 20 127/75 (92) 96 09/15/18 15:37 92 20 97 Nasal Cannula 3.0 32 09/15/18 15:33 92 22 96 Room Air 21 09/15/18 14:53 75 14 99/77 (84) 93 09/15/18 12:00 98.3 71 20 102/50 (67) 95 09/15/18 12:00 75 09/15/18 10:24 82 18 96 Nasal Cannula 3.0 32 09/15/18 10:14 88 18 94 Room Air 21 09/15/18 09:00 Nasal Cannula 2.0 09/15/18 08:00 98.9 72 20 117/65 (82) 96 09/15/18 07:55 67 09/15/18 07:15 80 18 97 Venturi Mask 6.0 35 09/15/18 07:09 Venturi Mask 6.0 35 09/15/18 07:09 90 18 96 Venturi Mask 6.0 35 09/15/18 07:09 96 Venturi Mask 6.0 35 09/15/18 04:02 74 18 97 Venturi Mask 6.0 35 09/15/18 04:00 98.0 52 18 145/66 (92) 97 09/15/18 04:00 69 09/15/18 03:52 77 18 95 Venturi Mask 6.0 35 09/15/18 00:00 98.9 86 18 107/63 (78) 97 09/14/18 23:41 77 18 96 Venturi Mask 6.0 35 09/14/18 23:31 73 18 92 Nasal Cannula 2.0 28 09/14/18 23:29 72 09/14/18 21:00 Venturi Mask 6.0 09/14/18 20:10 74 18 97 Nasal Cannula 2.0 28 09/14/18 20:00 98.8 74 18 107/60 (76) 95 09/14/18 20:00 94 Nasal Cannula 2.0 28 09/14/18 20:00 Nasal Cannula 2.0 28 09/14/18 20:00 71 18 94 Nasal Cannula 2.0 28 Intake and Output 09/14/18 09/15/18 19:00 07:00 Intake Total 570 ml Balance 570 ml Intake Oral 240 ml IV Total 330 ml # Voids 1 2 # Bowel Movements 2 Laboratory Tests Test 09/15/18 05:23 Pro-B-Type Natriuretic Peptide 2295 pg/mL (0-125) H Height (Feet): 5 Height (Inches): 8.00 Weight (Pounds): 160 Medications Current Medications Medications (Trade) Dose Ordered Sig/Adams Route PRN Reason Start Time Stop Time Status Last Admin Dose Admin Acetaminophen (Tylenol) 650 mg Q6H PRN RECTAL Mild Pain (Pain Scale 1-3) 09/15/18 16:00 10/14/18 15:59 Acetaminophen/ Hydrocodone Bitart ([place] 5/325) 1 tab Q6H PRN ORAL For Pain 09/15/18 15:00 09/21/18 14:59 Albuterol/ Ipratropium (Albuterol/ Ipratropium) 3 ml Q4HRT HHN 09/15/18 15:00 09/19/18 02:59 09/15/18 15:31 Azithromycin 500 mg/Sodium Chloride 275 ml @ 275 mls/hr DAILY IV 09/16/18 09:00 09/21/18 08:59 Calcium Carbonate (Tums) 500 mg Q3H PRN ORAL flatulence 09/15/18 15:30 10/14/18 00:29 Ceftriaxone Sodium 1 gm/ Dextrose 55 ml @ 110 mls/hr DAILY@1000 IVPB 09/16/18 10:00 09/23/18 09:59 Divalproex Sodium (Depakote) 250 mg EVERY 12 HOURS ORAL 09/15/18 21:00 10/14/18 08:59 Docusate Sodium (Colace) 100 mg TWICE A DAY ORAL 09/15/18 18:00 10/14/18 08:59 09/15/18 17:14 Escitalopram Oxalate (Lexapro) 20 mg DAILY ORAL 09/16/18 09:00 10/14/18 08:59 Heparin Sodium (Porcine) (Heparin 5000 units/ml) 5,000 units EVERY 12 HOURS SUBQ 09/15/18 21:00 10/14/18 08:59 Lorazepam (Ativan) 1 mg Q6H PRN ORAL For Anxiety 09/15/18 15:00 09/22/18 14:59 Magnesium Oxide (Mag-Ox 400mg) 400 mg THREE TIMES A DAY ORAL 09/15/18 18:00 10/14/18 08:59 09/15/18 17:14 Risperidone (RisperDAL) 3 mg BID ORAL 09/15/18 18:00 10/14/18 08:59 09/15/18 17:14 Topiramate (Topamax) 100 mg EVERY 12 HOURS ORAL 09/15/18 21:00 10/14/18 08:59 Assessment/Plan Problem List: (1) Psychotic disorder ICD Codes: F29 - Unspecified psychosis not due to a substance or known physiological condition SNOMED: 88681300 (2) Development delay ICD Codes: R62.50 - Development delay SNOMED: 878778059 (3) Depression ICD Codes: F32.9 - Depression SNOMED: 14325007 Status: stable Assessment/Plan trazodone Topamax Zaril Lavonne Clifford MD Sep 15, 2018 19:39
--- NOTE | 2018-09-15 19:40 | NUR ---
HAND-OFF: Report given to SHAMIKA Tolliver.
--- NOTE | 2018-09-15 19:41 | NUR ---
NURSE NOTES: Received report & pt from SHAMIKA Sofia. Pt lying in bed, non-verbal, in room air. No s/s of acute distress & no s/s of pain at this time. IV site intact & S/L'd. On seizure precaution; B/L side rails padded. B/L soft wrist restraints noted. Bed in lowest position, call light within reach. Will continue to monitor.
--- NOTE | 2018-09-15 21:00 | NUR ---
NURSE NOTES: Called Dr. Garcia if ok to do straight in & out cath for legionella urine antigen since pt is incontinent. said ok.
--- NOTE | 2018-09-15 21:28 | Cardiology Report ---
APPROVED REPORT EKG Measurement Heart [id number] Normal sinus rhythm Nonspecific ST abnormality Abnormal ECG
--- NOTE | 2018-09-15 22:15 | Consultation ---
DATE OF CONSULTATION: 09/15/2018 INFECTIOUS DISEASE CONSULTATION CONSULTING PHYSICIAN: Peyman Garcia M.D. ATTENDING PHYSICIAN: Orlin Garcia M.D. REFERRING PHYSICIAN: Orlin Garcia M.D. REASON FOR CONSULTATION: Community-acquired pneumonia and fevers. CHIEF COMPLAINT: The patient's chief complaint coming in to the hospital is community-acquired pneumonia and fevers. HISTORY OF PRESENT ILLNESS: This is a very pleasant 67-year-old male, who is not a very good historian, but is responsive. The patient presents to [facility] with a temperature of 103.3. The patient's chest x-ray showed that he had a pneumonia. It showed bilateral interstitial airspace infiltrates. Infectious Disease consultation was requested for antibiotic management in this patient. The patient is on Rocephin and azithromycin for community-acquired pneumonia. Case discussed with Dr. Garcia. The patient will be continued on Rocephin and azithromycin for community-acquired pneumonia and fevers. UA was unremarkable and blood cultures are negative to date. Sputum culture is pending. Chest x-ray was reviewed. Legionella mycoplasma also has been ordered and serology. MAR was noted. Orders were noted. Notes and records were reviewed. Case was RN. REVIEW OF SYSTEMS: CONSTITUTIONAL: The patient is alert and responsive. He has no Keita. No central line. The patient did come in with fevers of 103+. No obvious chills. HEAD AND NECK: No obvious head pain or neck pain. CARDIAC: No chest pain. GASTROINTESTINAL: No nausea, vomiting, abdominal pain, or diarrhea. GENITOURINARY: No Keita. No CVA tenderness. PULMONARY: Mild cough and congestion but no severe hemoptysis or secretions. SKIN: No rash or itching. EXTREMITIES: No extremity pain. NEUROLOGIC: No rash. No seizure activity. He has generalized fatigue. No focal weakness. He is responsive. PAST MEDICAL HISTORY: The patient has a past medical history of the following. The patient has a past medical history of severe mental retardation, history of PICA, and history of skin cancer. He has history of constipation, depression, seizure activity, mental retardation, developmental delay, renal insufficiency, and hypoxia. No mention of history of diabetes per the records. No history of hypertension it looks like. MEDICATIONS: Upon reviewing the MAR, the patient is on the following medication. On Rocephin and azithromycin. He is on Lexapro, divalproex, heparin, topiramate, docusate, magnesium oxide, risperidone, and acetaminophen. He is on calcium carbonate, albuterol, hydrocodone, acetaminophen, and lorazepam. Outside medications noted and reconciliated. ALLERGIES: No known drug allergies. No antibiotic allergies. SOCIAL HISTORY: Negative for smoking, alcohol, or drug abuse. FAMILY HISTORY: Noncontributory. Negative for tuberculosis or exposure to cancer. PHYSICAL EXAMINATION: VITAL SIGNS: Temperature maximum 103.3, other temperature now is 98.3, pulse rate 75, respiratory rate 14, blood pressure 99/77, and saturation 93 to 95%. GENERAL: Alert, responsive, and in no acute distress. HEAD AND NECK: Oral exam, no thrush. Eye exam, no icterus. Neck is supple. No JVD. Normocephalic. No icterus or thrush. HEART: Regular. No obvious gallop or murmur. No friction rub. LUNGS: Bilateral rhonchi and rales. ABDOMEN: Soft. Positive bowel sounds. Nontender. SKIN: No rash. MUSCULOSKELETAL: No effusions. Legs are without cellulitis. PERIPHERAL VASCULAR: No gangrene or cyanosis. GENITOURINARY: No Keita. LINE SITES: Without phlebitis, NEUROLOGIC: Alert, responsive, and nonfocal. LABORATORY DATA: Laboratory data is as follows. Creatinine 0.9. LFTs noted. White count 6.4 and hemoglobin 12.0. UA was 1+ leukocyte esterase and 2 to 4 white blood cells. CULTURES: Blood cultures negative to date. Sputum culture pending. Influenza screen is negative. IMAGING: Chest x-ray shows the following. Chest x-ray shows bilateral interstitial and airspace infiltrates versus edema. Report was noted and reviewed. ASSESSMENT AND PLAN: 1. The patient has community-acquired pneumonia, more likely pneumonia than edema . The patient does have fevers up to 103. The patient most likely has fevers from the community-acquired pneumonia. Continue Rocephin and azithromycin to cover Streptococcus pneumoniae and also atypical pneumonia such as mycoplasma and Legionella. In addition, he could have a viral pneumonitis. His influenza screen is negative. We will continue Rocephin and azithromycin, Rocephin to cover Streptococcus pneumoniae and azithromycin for atypical pneumonia. Continue treatment for community-acquired pneumonia with antibiotics. Check sputum culture, laboratories, and serology. Check followup chest x-ray. Orders were entered. Case was discussed with Dr. Garcia. 2. The patient has no history of diabetes or hypertension per the records. 3. History of epilepsy and seizures. Avoid seizure medications. 4. Constipation. 5. Depression. 6. Mental retardation. 7. Developmental delay. 8. Renal insufficiency. 9. Hypoxia. 10. Past medical history is noted. 11. No known drug allergies. 12. Social history is negative. 13. Family history is noncontributory. 14. MAR is noted. 15. Case was discussed with RN. 16. Case was discussed with Dr. Garcia. 17. Notes and records were noted. 18. Orders were entered. Peyman Garcia M.D. DR: ESTELA JOB#: [id number] CC:
[2018-09-16] MEDS: Albuterol/Ipratropium 3ml neb HHN SCH ×7 (00:42→23:05)
--- NOTE | 2018-09-16 02:09 | NUR ---
NURSE NOTES: Urine specimen collected for Legionella antigen. Sent down to lab.
[2018-09-16 04:00] VITALS: BP 107/75
[2018-09-16 06:42] LABS: EOSINOPHILS % (AUTO) 0.3 % (0.0-3.0); HEMATOCRIT 35.4 % (42.0-52.0); HEMOGLOBIN 11.8 G/DL (14.2-18.0); LYMPHOCYTES % (AUTO) 13.3 % (20.0-45.0); MEAN CORPUSCULAR VOLUME 96 FL (80-99); MONOCYTES % (AUTO) 9.3 % (1.0-10.0); PLATELET COUNT 136 K/UL (150-450); RED BLOOD COUNT 3.69 M/UL (4.70-6.10); RED CELL DISTRIBUTION WIDTH 12.9 % (11.6-14.8); WHITE BLOOD COUNT 8.2 K/UL (4.8-10.8)
[2018-09-16 07:02] LABS: ANION GAP 13 mmol/L (5-15); BLOOD UREA NITROGEN 14 mg/dL (7-18); CALCIUM 8.2 MG/DL (8.5-10.1); CARBON DIOXIDE 18 MMOL/L (21-32); CHLORIDE 107 MMOL/L (98-107); CREATININE 0.8 MG/DL (0.55-1.30); POTASSIUM 3.6 MMOL/L (3.5-5.1); SODIUM 138 MMOL/L (136-145)
--- NOTE | 2018-09-16 07:18 | NUR ---
HAND-OFF: Report given to SHAMIKA Sofia. Pt in stable condition.
--- NOTE | 2018-09-16 07:18 | NUR ---
NURSE NOTES: Received report from SHAMIKA Tolliver. Pt in bed, awake, nonverbal, smiling, calm, no apparent distress noted, bed in lowest position, call light within reach.
[2018-09-16 08:00] VITALS: BP 122/65
[2018-09-16] MEDS: Docusate 100mg cap ORAL SCH ×2 (09:17→17:32)
[2018-09-16] MEDS: Magnesium Oxide 400mg tab ORAL SCH ×3 (09:17→17:32)
[2018-09-16] MEDS: Azithromycin 500 MG in NS 275 ML IV SCH (09:18)
[2018-09-16] MEDS: Topiramate 100mg tab ORAL SCH ×2 (09:20→20:57)
[2018-09-16] MEDS: Heparin 5000 units/ml inj SUBQ SCH ×2 (09:20→20:57)
--- NOTE | 2018-09-16 10:26 | NUR ---
RADIOLOGY DEPT., CHEST X-RAY DONE.-P.DYE
[2018-09-16] MEDS: cefTRIAXone 1 GM in D5W 55 ML IVPB SCH (10:31)
--- NOTE | 2018-09-16 10:31 | NUR ---
CHARGE NURSE NOTE: Pt on contact isolation (VRE+) will be transferred to [facility].
--- NOTE | 2018-09-16 10:31 | NUR ---
CHARGE NURSE NOTE: VRE rectum +. was called, message left.
--- NOTE | 2018-09-16 11:39 | NUR ---
NURSE NOTES: Received patient from [facility] from . Patient is non-verbal.No s/s of pain or discomfort per FLACC pain scale. Skin intact, no redness or skin break on pressure points. IV on left AC. Patient is on bilateral soft restraints. RN released restraints,observed patient tried to remove his IV. Offered water, proper incontinent care done. Side rails are padded for seizure precaution. Will continue plan of care.
[2018-09-16 12:00] VITALS: BP 133/71
--- NOTE | 2018-09-16 13:06 | General Progress Note ---
Assessment/Plan Problem List: (1) Right lower lobe pneumonia ICD Codes: J18.1 - Lobar pneumonia, unspecified organism SNOMED: 078950849 Qualifiers: Qualified Codes: J18.1 - Lobar pneumonia, unspecified organism (2) Constipation ICD Codes: K59.00 - Constipation SNOMED: 84567622 (3) Depression ICD Codes: F32.9 - Depression SNOMED: 23051319 (4) Seizure disorder ICD Codes: G40.909 - Seizure disorder SNOMED: 817411954 (5) Mental retardation ICD Codes: F79 - Mental retardation SNOMED: 99239717 (6) Development delay ICD Codes: R62.50 - Development delay SNOMED: 536875283 (7) Renal insufficiency ICD Codes: N28.9 - Disorder of kidney and ureter, unspecified SNOMED: 739814192, 249654448 (8) Hypoxia ICD Codes: R09.02 - Hypoxemia SNOMED: 658464013, 559686757 Status: progressing Assessment/Plan Assessment/Plan Problems: (1) Right lower lobe pneumonia (2) Constipation (3) Depression (4) Seizure disorder (5) Mental retardation (6) Development delay (7) Renal insufficiency (8) Hypoxia (9) VRE positive Assessment/Plan plan: - admit to med/surg - Duoneb q 4 - oxygen 2 L nc - ID and cardiology consult - echo - repeat chest xray - IV Ceftriaxone and Azithromycin - VTE prophylaxis with Heparin sq bid - Tylenol Prn pain fever - Psychiatry consult for agitation - soft bilateral wrist restraints - industrial electrician journeyman to assist with meals - pica precautions discussed with nurse - am labs fu cardiology recommendations ID consult pending - pulmonary consult - VRE isolation - speech swallow eval discussed with nurse Subjective Date patient seen: Sep 16, 2018 Respiratory: Reports: wheezing Allergies: Coded Allergies: No Known Allergies (Unverified , 10/20/14) All Systems: reviewed and negative except above Objective Last 24 Hour Vital Signs Date Time Temp Pulse Resp B/P (MAP) Pulse Ox O2 Delivery O2 Flow Rate FiO2 09/16/18 11:10 71 20 97 Room Air 21 09/16/18 11:03 71 20 95 Room Air 21 09/16/18 09:00 Room Air 09/16/18 08:00 97.6 64 19 122/65 (84) 94 09/16/18 07:51 64 20 98 Room Air 21 09/16/18 07:48 60 20 97 Room Air 21 09/16/18 07:47 Room Air 21 09/16/18 07:47 97 Room Air 21 09/16/18 04:14 88 20 96 Nasal Cannula 3.0 32 09/16/18 04:04 89 24 94 Room Air 21 09/16/18 04:00 98.4 69 19 107/75 (86) 96 09/16/18 01:06 82 20 97 Nasal Cannula 3.0 32 09/16/18 00:40 76 24 96 Nasal Cannula 2.0 28 09/16/18 00:37 Nasal Cannula 2.0 28 09/16/18 00:35 96 Nasal Cannula 2.0 28 09/15/18 23:53 98.5 65 20 99/60 (73) 94 09/15/18 21:00 Room Air 09/15/18 20:00 98.4 77 16 109/65 (80) 94 09/15/18 19:45 Nasal Cannula 2.0 28 09/15/18 19:45 Nasal Cannula 2.0 28 09/15/18 16:00 97.9 61 20 127/75 (92) 96 09/15/18 15:37 92 20 97 Nasal Cannula 3.0 32 09/15/18 15:33 92 22 96 Room Air 21 09/15/18 14:53 75 14 99/77 (84) 93 Intake and Output 09/15/18 09/16/18 19:00 07:00 Intake Total 720 ml 240 ml Output Total 750 ml Balance 720 ml -510 ml Intake Oral 720 ml 240 ml Output Urine Total 750 ml # Voids 2 1 Laboratory Tests 09/16/18 02:05: Urine Legionella Antigen [Pending] 09/16/18 05:45: White Blood Count 8.2, Red Blood Count 3.69L, Hemoglobin 11.8L, Hematocrit 35.4L , Mean Corpuscular Volume 96, Mean Corpuscular Hemoglobin 32.1H, Mean Corpuscular Hemoglobin Concent 33.4, Red Cell Distribution Width 12.9, Platelet Count 136L, Mean Platelet Volume 6.8, Neutrophils (%) (Auto) 76.0H, Lymphocytes (%) (Auto) 13.3L, Monocytes (%) (Auto) 9.3, Eosinophils (%) (Auto) 0.3, Basophils (%) (Auto) 1.0, Sodium Level 138, Potassium Level 3.6, Chloride Level 107, Carbon Dioxide Level 18L, Anion Gap 13, Blood Urea Nitrogen 14, Creatinine 0.8, Estimat Glomerular Filtration Rate > 60, Glucose Level 88, Calcium Level 8.2L, Troponin I 0.000, Thyroid Stimulating Hormone (TSH) 1.567, Free Thyroxine 1.11 Height (Feet): 5 Height (Inches): 8.00 Weight (Pounds): 158 General Appearance: no apparent distress, alert EENT: PERRL/EOMI, pharynx normal Neck: non-tender, supple Cardiovascular: normal peripheral pulses Respiratory/Chest: crackles/rales Abdomen: non tender, soft, no mass Extremities: non-tender, normal inspection, no calf tenderness Edema: no edema noted Arm (L), no edema noted Arm (R), no edema noted Leg (L), no edema noted Leg (R), no edema noted Pedal (L), no edema noted Pedal (R), no edema noted Generalized Neurologic: alert Skin: warm/dry Lymphatic: normal anterior cervical (L), normal anterior cervical (R), normal posterior cervical (L), normal posterior cervical (R), normal submandibular (L) , normal submandibular (R), normal supraclavicular (L), normal supraclavicular ( R), normal axillary (L), normal axillary (R), normal inguinal (L), normal inguinal (R), normal other Orlin Garcia MD Sep 16, 2018 13:06
[2018-09-16] MEDS ORDERED: Promethazine/Codeine 5ml UD ORAL PRN (13:15)
--- NOTE | 2018-09-16 14:03 | Diagnostic Imaging Report ---
Indication: Cough Technique: One view of the chest Comparison: For 07/05/2018 Findings: Hazy diffuse right lung parenchymal opacity is again demonstrated, appears unchanged. The left lung and pleural space are probably clear, equivocal parenchymal changes on the left previously demonstrated are no longer evident. The heart is borderline enlarged Impression: Persistent hazy infiltrate versus edema on the right, probably unchanged over 2 days Apparent improvement of previously demonstrated left-sided parenchymal disease
--- NOTE | 2018-09-16 15:40 | NUR ---
RESPIRATORY NOTE: attempted to sxn pt nasally for sputum with help of RN at bedside. pt kept moving and refused sxn. unsuccessful attempt for sputum.
--- NOTE | 2018-09-16 15:40 | NUR ---
NURSE NOTES: Patient is non-verbal and unable to expectorate phlegm. RT tried to do sputum inducement but patient tried to kick RN and RT and moved his face and body. Unable to collect sputum . Will follow up.
[2018-09-16 16:00] VITALS: BP 112/71
--- NOTE | 2018-09-16 16:04 | Cardiac Electrophysiology PN ---
Assessment/Plan Assessment/Plan 1. Mild CHF. Elevated brain natriuretic peptide of more than 200. However, clinically the patient is euvolemic and echocardiogram showed normal left ventricular systolic function. I think the primary reason for patient's shortness of breath is his pneumonia, for which he is already on antibiotic. 2. Pneumonia, on ceftriaxone and azithromycin. 3. Mental retardation. 4. History of seizure disorder, on Risperdal and Lexapro. 5. History of skin cancer. Subjective Subjective Transferred to [facility]. Nonverbal in restraints Objective Last 24 Hour Vital Signs Date Time Temp Pulse Resp B/P (MAP) Pulse Ox O2 Delivery O2 Flow Rate FiO2 09/16/18 15:39 79 20 98 Room Air 21 09/16/18 15:31 74 20 94 Room Air 21 09/16/18 12:00 98.3 86 21 133/71 (91) 96 09/16/18 11:10 71 20 97 Room Air 21 09/16/18 11:03 71 20 95 Room Air 21 09/16/18 09:00 Room Air 09/16/18 08:00 97.6 64 19 122/65 (84) 94 09/16/18 07:51 64 20 98 Room Air 21 09/16/18 07:48 60 20 97 Room Air 21 09/16/18 07:47 Room Air 21 09/16/18 07:47 97 Room Air 21 09/16/18 04:14 88 20 96 Nasal Cannula 3.0 32 09/16/18 04:04 89 24 94 Room Air 21 09/16/18 04:00 98.4 69 19 107/75 (86) 96 09/16/18 01:06 82 20 97 Nasal Cannula 3.0 32 09/16/18 00:40 76 24 96 Nasal Cannula 2.0 28 09/16/18 00:37 Nasal Cannula 2.0 28 09/16/18 00:35 96 Nasal Cannula 2.0 28 09/15/18 23:53 98.5 65 20 99/60 (73) 94 09/15/18 21:00 Room Air 09/15/18 20:00 98.4 77 16 109/65 (80) 94 09/15/18 19:45 Nasal Cannula 2.0 28 09/15/18 19:45 Nasal Cannula 2.0 28 Intake and Output 09/15/18 09/16/18 19:00 07:00 Intake Total 720 ml 240 ml Output Total 750 ml Balance 720 ml -510 ml Intake Oral 720 ml 240 ml Output Urine Total 750 ml # Voids 2 1 Laboratory Tests Test 09/16/18 02:05 09/16/18 05:45 Urine Legionella Antigen Pending White Blood Count 8.2 K/UL (4.8-10.8) Red Blood Count 3.69 M/UL (4.70-6.10) L Hemoglobin 11.8 G/DL (14.2-18.0) L Hematocrit 35.4 % (42.0-52.0) L Mean Corpuscular Volume 96 FL (80-99) Mean Corpuscular Hemoglobin 32.1 PG (27.0-31.0) H Mean Corpuscular Hemoglobin Concent 33.4 G/DL (32.0-36.0) Red Cell Distribution Width 12.9 % (11.6-14.8) Platelet Count 136 K/UL (150-450) L Mean Platelet Volume 6.8 FL (6.5-10.1) Neutrophils (%) (Auto) 76.0 % (45.0-75.0) H Lymphocytes (%) (Auto) 13.3 % (20.0-45.0) L Monocytes (%) (Auto) 9.3 % (1.0-10.0) Eosinophils (%) (Auto) 0.3 % (0.0-3.0) Basophils (%) (Auto) 1.0 % (0.0-2.0) Sodium Level 138 MMOL/L (136-145) Potassium Level 3.6 MMOL/L (3.5-5.1) Chloride Level 107 MMOL/L (98-107) Carbon Dioxide Level 18 MMOL/L (21-32) L Anion Gap 13 mmol/L (5-15) Blood Urea Nitrogen 14 mg/dL (7-18) Creatinine 0.8 MG/DL (0.55-1.30) Estimat Glomerular Filtration Rate > 60 mL/min (>60) Glucose Level 88 MG/DL (74-106) Calcium Level 8.2 MG/DL (8.5-10.1) L Troponin I 0.000 ng/mL (0.000-0.056) Thyroid Stimulating Hormone (TSH) 1.567 uiU/mL (0.358-3.740) Free Thyroxine 1.11 NG/DL (0.76-1.46) Microbiology Date/Time Source Procedure Growth Status 09/13/18 20:05 Blood Blood Culture - Preliminary NO GROWTH AFTER 48 HOURS Resulted 09/13/18 20:00 Blood Blood Culture - Preliminary NO GROWTH AFTER 48 HOURS Resulted 09/13/18 21:45 Nasal Nares Influenza Types A,B Antigen (NIKHIL) - Final Complete 09/13/18 20:30 Nasal Nares MRSA Culture - Final NO METHICILLIN RESISTANT STAPH AUREUS... Complete 09/13/18 20:30 Rectum - Final NO CARBAPENEM-RESISTANT ENTEROBACTERI... Complete 09/13/18 20:30 Rectum VRE Culture - Final Enterococcus Faecalis - Vre Complete Objective HEAD AND NECK: No JVD. LUNGS: Coarse rhonchi bilaterally. CARDIOVASCULAR: Regular S1 and S2 with no gallop or murmur. ABDOMEN: Soft. EXTREMITIES: No pitting edema. Sebas Momin MD Sep 16, 2018 16:04
--- NOTE | 2018-09-16 19:16 | NUR ---
HAND-OFF: Report given to
--- NOTE | 2018-09-16 19:43 | NUR ---
NURSE NOTES: Received patient awake,no SOB,comfortably resting in bed.
[2018-09-16 20:00] VITALS: BP 127/73
[2018-09-16] MEDS: Theophylline ER 100mg ORAL SCH (20:57)
--- NOTE | 2018-09-16 21:23 | General Progress Note ---
Assessment/Plan Problem List: (1) Psychotic disorder ICD Codes: F29 - Unspecified psychosis not due to a substance or known physiological condition SNOMED: 15954849 (2) Development delay ICD Codes: R62.50 - Development delay SNOMED: 329973996 (3) Depression ICD Codes: F32.9 - Depression SNOMED: 91189982 Assessment/Plan trazodone Topamax Risperdal Subjective Neurologic/Psychiatric: Reports: anxiety, depressed, emotional problems Allergies: Coded Allergies: No Known Allergies (Unverified , 10/20/14) Objective Last 24 Hour Vital Signs Date Time Temp Pulse Resp B/P (MAP) Pulse Ox O2 Delivery O2 Flow Rate FiO2 09/16/18 20:00 98.5 68 17 127/73 (91) 97 09/16/18 19:56 Room Air 09/16/18 19:48 68 18 99 Room Air 21 09/16/18 19:38 Room Air 21 09/16/18 19:38 94 Room Air 21 09/16/18 19:38 67 18 94 Room Air 21 09/16/18 16:00 98.4 92 21 112/71 (85) 97 09/16/18 15:39 79 20 98 Room Air 21 09/16/18 15:31 74 20 94 Room Air 21 09/16/18 12:00 98.3 86 21 133/71 (91) 96 09/16/18 11:10 71 20 97 Room Air 21 09/16/18 11:03 71 20 95 Room Air 21 09/16/18 09:00 Room Air 09/16/18 08:00 97.6 64 19 122/65 (84) 94 09/16/18 07:51 64 20 98 Room Air 21 09/16/18 07:48 60 20 97 Room Air 21 09/16/18 07:47 Room Air 21 09/16/18 07:47 97 Room Air 21 09/16/18 04:14 88 20 96 Nasal Cannula 3.0 32 09/16/18 04:04 89 24 94 Room Air 21 09/16/18 04:00 98.4 69 19 107/75 (86) 96 09/16/18 01:06 82 20 97 Nasal Cannula 3.0 32 09/16/18 00:40 76 24 96 Nasal Cannula 2.0 28 09/16/18 00:37 Nasal Cannula 2.0 28 09/16/18 00:35 96 Nasal Cannula 2.0 28 09/15/18 23:53 98.5 65 20 99/60 (73) 94 Intake and Output 09/15/18 09/16/18 19:00 07:00 Intake Total 720 ml 240 ml Output Total 750 ml Balance 720 ml -510 ml Intake Oral 720 ml 240 ml Output Urine Total 750 ml # Voids 2 1 Laboratory Tests 09/16/18 02:05: Urine Legionella Antigen [Pending] 09/16/18 05:45: White Blood Count 8.2, Red Blood Count 3.69L, Hemoglobin 11.8L, Hematocrit 35.4L , Mean Corpuscular Volume 96, Mean Corpuscular Hemoglobin 32.1H, Mean Corpuscular Hemoglobin Concent 33.4, Red Cell Distribution Width 12.9, Platelet Count 136L, Mean Platelet Volume 6.8, Neutrophils (%) (Auto) 76.0H, Lymphocytes (%) (Auto) 13.3L, Monocytes (%) (Auto) 9.3, Eosinophils (%) (Auto) 0.3, Basophils (%) (Auto) 1.0, Sodium Level 138, Potassium Level 3.6, Chloride Level 107, Carbon Dioxide Level 18L, Anion Gap 13, Blood Urea Nitrogen 14, Creatinine 0.8, Estimat Glomerular Filtration Rate > 60, Glucose Level 88, Calcium Level 8.2L, Troponin I 0.000, Thyroid Stimulating Hormone (TSH) 1.567, Free Thyroxine 1.11 Height (Feet): 5 Height (Inches): 8.00 Weight (Pounds): 158 General Appearance: alert, confused, agitated Lavonne Clifford MD Sep 16, 2018 21:23
--- NOTE | 2018-09-16 23:38 | Infectious Diseases Prog Note ---
Assessment/Plan Assessment/Plan ASSESSMENT AND PLAN: 1. CAP, possible aspiration pna, fevers, hypoxia - rocephin and azithromycin, flagyl added for aspiration coverage - chest x-ray improved, swallow evaluation ordered - monitor labs - check final cultures - clinically better, fevers resolved - d/w Dr. Garcia 2. vre colonization and isolation 3. History of epilepsy and seizures. Avoid pro-seizure medications. 4. Constipation. 5. Depression. 6. Mental retardation. 7. Developmental delay. 8. Renal insufficiency. 9. Hypoxia. 10. Past medical history is noted. 11. No known drug allergies. 12. Social history is negative. 13. Family history is noncontributory. 14. MAR is noted. 15. Case was discussed with RN. 16. Case was discussed with Dr. Garcia. 17. Notes and records were noted. 18. Orders were entered. Subjective Constitutional: Reports: fatigue; Denies: fever HEENT: Reports: congestion - less Respiratory: Denies: shortness of breath Cardiovascular: Denies: chest pain Gastrointestinal/Abdominal: Denies: nausea, vomiting, diarrhea Genitourinary: Reports: other - no pastrana Neurologic: Denies: headache Psychiatric: Denies: depression Skin: Denies: rash Hematologic: Denies: bleeding Musculoskeletal: Denies: pain Allergies: Coded Allergies: No Known Allergies (Unverified , 10/20/14) Objective Vital Signs Last 24 Hour Vital Signs Date Time Temp Pulse Resp B/P (MAP) Pulse Ox O2 Delivery O2 Flow Rate FiO2 09/16/18 23:09 Room Air 21 09/16/18 23:05 77 20 96 Room Air 09/16/18 20:00 98.5 68 17 127/73 (91) 97 09/16/18 19:56 Room Air 09/16/18 19:48 68 18 99 Room Air 21 09/16/18 19:38 Room Air 21 09/16/18 19:38 94 Room Air 21 09/16/18 19:38 67 18 94 Room Air 21 09/16/18 16:00 98.4 92 21 112/71 (85) 97 09/16/18 15:39 79 20 98 Room Air 21 09/16/18 15:31 74 20 94 Room Air 21 09/16/18 12:00 98.3 86 21 133/71 (91) 96 09/16/18 11:10 71 20 97 Room Air 21 09/16/18 11:03 71 20 95 Room Air 21 09/16/18 09:00 Room Air 09/16/18 08:00 97.6 64 19 122/65 (84) 94 09/16/18 07:51 64 20 98 Room Air 21 09/16/18 07:48 60 20 97 Room Air 21 09/16/18 07:47 Room Air 21 09/16/18 07:47 97 Room Air 21 09/16/18 04:14 88 20 96 Nasal Cannula 3.0 32 09/16/18 04:04 89 24 94 Room Air 21 09/16/18 04:00 98.4 69 19 107/75 (86) 96 09/16/18 01:06 82 20 97 Nasal Cannula 3.0 32 09/16/18 00:40 76 24 96 Nasal Cannula 2.0 28 09/16/18 00:37 Nasal Cannula 2.0 28 09/16/18 00:35 96 Nasal Cannula 2.0 28 09/15/18 23:53 98.5 65 20 99/60 (73) 94 Height (Feet): 5 Height (Inches): 8.00 Weight (Pounds): 158 General Appearance: no acute distress HEENT: normocephalic, atraumatic, anicteric, mucous membranes moist Respiratory/Chest: crackles/rales, rhonchi - bilaterally Cardiovascular: normal rate, regular rhythm, no gallop/murmur, no JVD Abdomen: normal bowel sounds, soft, non tender, no organomegaly, non distended Genitourinary: other - no pastrana Extremities: no cyanosis Skin: no rash 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 The left lung and pleural space are probably clear, equivocal parenchymal changes on the left previously demonstrated are no longer evident. The heart is borderline enlarged Impression: Persistent hazy infiltrate versus edema on the right, probably unchanged over 2 days Apparent improvement of previously demonstrated left-sided parenchymal disease Microbiology Date/Time Source Procedure Growth Status 09/13/18 20:05 Blood Blood Culture - Preliminary NO GROWTH AFTER 48 HOURS Resulted 09/13/18 21:45 Nasal Nares Influenza Types A,B Antigen (NIKHIL) - Final Complete 09/13/18 20:30 Rectum - Final NO CARBAPENEM-RESISTANT ENTEROBACTERI... Complete Sputum culture - normal haja so far Laboratory Tests Test 09/16/18 02:05 09/16/18 05:45 Urine Legionella Antigen Pending White Blood Count 8.2 K/UL (4.8-10.8) Red Blood Count 3.69 M/UL (4.70-6.10) L Hemoglobin 11.8 G/DL (14.2-18.0) L Hematocrit 35.4 % (42.0-52.0) L Mean Corpuscular Volume 96 FL (80-99) Mean Corpuscular Hemoglobin 32.1 PG (27.0-31.0) H Mean Corpuscular Hemoglobin Concent 33.4 G/DL (32.0-36.0) Red Cell Distribution Width 12.9 % (11.6-14.8) Platelet Count 136 K/UL (150-450) L Mean Platelet Volume 6.8 FL (6.5-10.1) Neutrophils (%) (Auto) 76.0 % (45.0-75.0) H Lymphocytes (%) (Auto) 13.3 % (20.0-45.0) L Monocytes (%) (Auto) 9.3 % (1.0-10.0) Eosinophils (%) (Auto) 0.3 % (0.0-3.0) Basophils (%) (Auto) 1.0 % (0.0-2.0) Sodium Level 138 MMOL/L (136-145) Potassium Level 3.6 MMOL/L (3.5-5.1) Chloride Level 107 MMOL/L (98-107) Carbon Dioxide Level 18 MMOL/L (21-32) L Anion Gap 13 mmol/L (5-15) Blood Urea Nitrogen 14 mg/dL (7-18) Creatinine 0.8 MG/DL (0.55-1.30) Estimat Glomerular Filtration Rate > 60 mL/min (>60) Glucose Level 88 MG/DL (74-106) Calcium Level 8.2 MG/DL (8.5-10.1) L Troponin I 0.000 ng/mL (0.000-0.056) Thyroid Stimulating Hormone (TSH) 1.567 uiU/mL (0.358-3.740) Free Thyroxine 1.11 NG/DL (0.76-1.46) Current Medications Medications (Trade) Dose Ordered Sig/Adams Route PRN Reason Start Time Stop Time Status Last Admin Dose Admin Acetaminophen (Tylenol) 650 mg Q6H PRN RECTAL Mild Pain (Pain Scale 1-3) 09/15/18 16:00 10/14/18 15:59 Acetaminophen/ Hydrocodone Bitart (Brooks 5/325) 1 tab Q6H PRN ORAL For Pain 09/15/18 15:00 09/21/18 14:59 Albuterol/ Ipratropium (Albuterol/ Ipratropium) 3 ml Q4HRT HHN 09/15/18 15:00 09/19/18 02:59 09/16/18 23:05 Azithromycin 500 mg/Sodium Chloride 275 ml @ 275 mls/hr DAILY IV 09/16/18 09:00 09/21/18 08:59 09/16/18 09:18 Calcium Carbonate (Tums) 500 mg Q3H PRN ORAL flatulence 09/15/18 15:30 10/14/18 00:29 Ceftriaxone Sodium 1 gm/ Dextrose 55 ml @ 110 mls/hr DAILY@1000 IVPB 09/16/18 10:00 09/23/18 09:59 09/16/18 10:31 Divalproex Sodium (Depakote) 250 mg EVERY 12 HOURS ORAL 09/15/18 21:00 10/14/18 08:59 09/16/18 20:57 Docusate Sodium (Colace) 100 mg TWICE A DAY ORAL 09/15/18 18:00 10/14/18 08:59 09/16/18 17:32 Escitalopram Oxalate (Lexapro) 20 mg DAILY ORAL 09/16/18 09:00 10/14/18 08:59 09/16/18 09:17 Heparin Sodium (Porcine) (Heparin 5000 units/ml) 5,000 units EVERY 12 HOURS SUBQ 09/15/18 21:00 10/14/18 08:59 09/16/18 09:20 Lorazepam (Ativan) 1 mg Q6H PRN ORAL For Anxiety 09/15/18 15:00 09/22/18 14:59 Magnesium Oxide (Mag-Ox 400mg) 400 mg THREE TIMES A DAY ORAL 09/15/18 18:00 10/14/18 08:59 09/16/18 17:32 Metronidazole 100 ml @ 100 mls/hr Q8HR IVPB 09/16/18 22:00 09/23/18 21:59 09/16/18 20:56 Promethazine HCl/ Codeine (Phenergan with Codeine) 5 ml Q4H PRN ORAL For Cough 09/16/18 13:15 10/16/18 13:14 Risperidone (RisperDAL) 3 mg BID ORAL 09/15/18 18:00 10/14/18 08:59 09/16/18 17:32 Theophylline (Alfredito-Dur) 100 mg EVERY 12 HOURS ORAL 09/16/18 21:00 10/16/18 20:59 09/16/18 20:57 Topiramate (Topamax) 100 mg EVERY 12 HOURS ORAL 09/15/18 21:00 10/14/18 08:59 09/16/18 20:57 Peyman Garcia MD Sep 16, 2018 23:38
[2018-09-17] VITALS: BP 102/65
[2018-09-17] MEDS: Albuterol/Ipratropium 3ml neb HHN SCH ×5 (03:40→20:16)
--- NOTE | 2018-09-17 07:18 | NUR ---
HAND-OFF: Report given to SHAMIKA Lee/SHAMIKA Shankar.
--- NOTE | 2018-09-17 07:22 | NUR ---
NURSE NOTES: RN received pt in stable condition. No acute distress or SOB. Bed in low, locked position. Call light within reach. Will continue plan of care.
[2018-09-17 07:37] LABS: HEMATOCRIT 37.3 % (42.0-52.0); HEMOGLOBIN 12.6 G/DL (14.2-18.0); MEAN CORPUSCULAR VOLUME 95 FL (80-99); PLATELET COUNT 140 K/UL (150-450); RED BLOOD COUNT 3.93 M/UL (4.70-6.10); RED CELL DISTRIBUTION WIDTH 13.1 % (11.6-14.8); WHITE BLOOD COUNT 7.1 K/UL (4.8-10.8)
[2018-09-17 07:56] LABS: ANION GAP 14 mmol/L (5-15); BLOOD UREA NITROGEN 13 mg/dL (7-18); CALCIUM 8.4 MG/DL (8.5-10.1); CARBON DIOXIDE 20 MMOL/L (21-32); CHLORIDE 107 MMOL/L (98-107); CREATININE 0.6 MG/DL (0.55-1.30); SODIUM 140 MMOL/L (136-145)
[2018-09-17 08:00] VITALS: BP 114/68
--- NOTE | 2018-09-17 08:01 | NUR ---
NURSE NOTES: Received report from Vonnie WICK, patient is up in bed, no distress noted, bed is locked and in lowest position, call light within reach, will continue to monitor with Vonnie WICK.
[2018-09-17] MEDS: Magnesium Oxide 400mg tab ORAL SCH ×3 (08:07→18:13)
[2018-09-17] MEDS: Theophylline ER 100mg ORAL SCH ×2 (08:07→21:49)
[2018-09-17] MEDS: Docusate 100mg cap ORAL SCH ×2 (08:08→18:13)
[2018-09-17] MEDS: Topiramate 100mg tab ORAL SCH ×2 (08:08→21:49)
[2018-09-17] MEDS: Azithromycin 500 MG in NS 275 ML IV SCH (08:16)
[2018-09-17] MEDS: Heparin 5000 units/ml inj SUBQ SCH ×2 (08:16→21:00)
[2018-09-17] MEDS: LORazepam 1mg tab ORAL PRN (10:37)
[2018-09-17] MEDS: cefTRIAXone 1 GM in D5W 55 ML IVPB SCH (10:38)
--- NOTE | 2018-09-17 10:52 | NUR ---
NURSE NOTES: Pt agitated in bed, biting on hands, pulled out IV. RN administered PRN Ativan
--- NOTE | 2018-09-17 11:30 | NUR ---
SWALLOW/SPEECH THERAPY NOTE: SEE SWALLOW EVAL IN ST CARE ACTIVITY SECTION. DYSPHAGIA RISK FACTORS FOR THIS 68 Y.O.M.: ACUTE RLL PNA AND INFILTRATE PERSISTS ON 09/16/18 CXR (H/O PNA), DYSPNEA, RESP DISTRESS, ADVANCED AGE, POSSIBLE SEPSIS, PICA, HYPOXIA. RELEVANT MEDS GERD OMEPRAZOLE, ATIVAN, ALBUTEROL,RISPERDAL H/O MENTALLY CHALLENGED (MR) DEV DELAY, PSYCH, DEPRESSION, RESP D/O, CONSTIPATION NO ADVANCE DIRECTIVE/POLST REGARDING TUBE FEEDING PREFERENCES ? 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 BUT ON SOFT CHEW AND THIN LIQUIDS WITHOUT OVERT ASPIRATION WITH 75-100% INTAKE SLOWLY AND TAKES MEDS CRUSHED AND ONE PILL WHOLE W/O OVERT ASPIRATION PER RN INITIAL IMPRESSIONS: S/S OF AT LEAST A MILD-MODERATE ORAL PREP AND OROPHARYNGEAL DYSPHAGIA WITH INCREASED TRANSIT TIMES LABIAL/LINGUAL SKILLS GROSSLY FUNCTIONAL BUT DIFFICULT TO ASSESS HE DOESN'T FOLLOW COMMANDS AND IS NONVERBAL (VOCAL AND YELLS "EH") MISSING TEETH DIFFICULT TO ASSESS SPONTANEOUS COUGH FAIR WITH SALIVA OBSERVED BUT NO NEED TO SUCTION THIN AND NECTAR THICK LIQUIDS - SEQUENTIAL SIPS DURING TEN MILE SWALLOW PROTOCOL, NO OVERT ASPIRATION AND FAIR HYOLARYNGEAL EXCURSION BUT DID NOT COMPLETE ENTIRE AMOUNT OF 3 OZ WATER (? BEHAVIORAL THOUGH), DID HAVE DELAYED SECOND SWALLOW AFTER LAST SIP. PUREED TSP - MILDLY SLOWER BUT GROSSLY FUNCTIONAL W/O ORAL RESIDUE W/O OVERT ASP MASTICATED SOLID (CRACKER 1/2) - SLOWER CHEWING (MODERATE) BUT NO OVERT ASPIRAITON NOR ORAL RESIDUE WAS MOVING HEAD BACK AND FORTH LOOKING AT RN AND ST WHILE CHEWING BUT HE DID NOT YELL OUT WITH FOOD IN HIS MOUTH. HAS HIGH SILENT ASPIRATION RISK GIVEN NEURO DIAGNOSIS AND HAS A PNA NOW AND IN THE PAST AND COUGHED WITH SALIVA ONE TIME. RECOMMENDATIONS: COMPLETE MODIFIFED BARIUM SWALLOW STUDY IP OR OP IF DC TO FURTHER ASSESS SWALLOW,DETERMINE SILENT/AUDIBLE ASP RISK/ETIOLOGY, AND ATTEMPT TRIAL TX IF PO GIVEN FOR QUALITY OF LIFE, CONSIDER DOWNGRADING TO [facility] SOFT FINELY CHOPPED AND NECTAR THICK LIQUIDS FOR NOW DUE TO HIGH SILENT ASP RISK AND SOME IMPULSIVITY. 1-1 FEEDING AND USE POSTED ASPIRATION/REFLUX PRECAUTIONS AND STRATEGIES EDUCATED/TRAINED STAFF IN POSTED ASP AND REFLUX PRECAUTIONS. Addendum: 09/17/18 at 1138 by VALENTIN RAYO GREENSKEEPER LABORER PER [facility], DR DELCID AGREED TO [facility]SS IF NEEDED SO STUDY WILL BE COMPLETED TODAY. Addendum: 09/17/18 at 1141 by VALENTIN RAYO GREENSKEEPER LABORER FUNCTIONAL ORAL INTAKE SCALE (FOIS) LEVEL 5 TOTAL ORAL INTAKE OF MULTIPLE CONSISTENCIES, REQUIRING SPECIAL PREP.
--- NOTE | 2018-09-17 11:37 | NUR ---
ST NOTE: SPOKE TO DR. DELCID YESTERDAY. OKAY WITH MODIFIED BARIUM SWALLOW STUDY IF NEEDED.
--- NOTE | 2018-09-17 12:56 | NUR ---
SWALLOW/SPEECH THERAPY NOTE: MODIFIED BARIUM SWALLOW STUDY COMPLETED, SEE FULL REPORT TO FOLLOW: REQUIRED CUES TO NOT SLIDE DOWN IN AIR BED AND NOT BITE HIS THUMB. WOULD GET AGITATED AND YELL OUT "EH". CALMER WHEN TOLD HE WOULD GET A DELICIOUS COOKIE AND LIQUID. LIMITED AND ABBREVIATED PO TRIALS GIVEN SINCE PATIENT MIGHT TRY TO SLIDE DOWN IN BED AGAIN. INITIAL IMPRESSIONS: MODERATE ORAL PREP AND OROPHARYNGEAL DYSPHAGIA WITH INCREASED ORAL PREP AND OROPHARYNGEAL TRANSIT TIMES DUE TO SENSORIMOTOR DEFICITS AND COMPOUNDED BY BEHAVIORAL DEFICITS (MOVED HEAD/BODY AND GETS IMPULSIVE OR AGITATED AT TIMES). THIN LIQUIDS SEQUENTIAL SIPS VIA STRAW GIVEN AND PATIENT DID NOT ASPIRATE BUT DID HAVE TRACE AND SILENT LARYNGEAL PENETRATION AFTER THE SWALLOW DUE TO LATE SWALLOW, CLOSURE OF LARYNGEAL VESTIBULE AND REDUCED HYOLARYNGEAL EXCURSION. ADDITIONAL ISSUES ASPIRATION RISK AFTER THE SWALLOW DUE TO REDUCED OROPHARYNGEAL DYSMOTILITY (REDUCED BOLUS CONTROL,BASE OF TONGUE RETRACTION,HYOLARYNGEAL EXCURSION, AND PHARYNGEAL STRIPPING WAVE, AND PHARYNGOESOPHAGEAL SEGMENT OPENING) NECTAR THICK LIQUIDS SEQUENTIAL SIPS VIA STRAW, NO ASPIRATION NOR LARYNGEAL PENETRATION BUT HAS ASPIRATION RISK AFTER THE SWALLOW DUE TO SAME DEFICITS WITH THIN LIQUIDS. PUREED GROSSLY FUNCTIONAL BUT SLOWER BOLUS CONTROL AND AP TONGUE MOVEMENT WITH SOME ORAL RESIDUE BACK OF TONGUE THAT CLEARED WITH SECOND SWALLOW. MIN PHARYGEAL RESIDUE DUE TO PHARYNGEAL DYSMOTILITY. MASTICATED SOLID (1/2 COOKIE WITH 3 CC PUDDING) NO ASP/LP BUT HAS ASP/LP RISK AFTER THE SWALLOW DUE TO THE FOLLOWING: SLOWER (15 SEC) VERTICAL CHEW, SLOWER BOLUS CONTROL, MILD ORAL RESIDUE, REDUCED BASE OF TONGUE RETRACTION (MILD VALLECULAR RESIDUE) AND HYOLARYNGEAL EXCURSION (MIN PYRIFORM SINUS RESIDUE) THAT CLEARED WITH CUES TO SWALLOW HARD. ESOPHAGEAL PHASE: LIMITED TO LATERAL / OBLIQUE VIEW AND GROSSLY FUNCTIONAL SOME AIR NOTED AND DID BELCH ONCE DURING THE STUDY. VERY IMPULSIVE WITH SEQUENTIAL STRAW SWALLOWS. TRIAL TX: BENEFITS FROM CUED EXTRA HARD SWALLOW WITH ALL CONSISTENCIES, SAFEST WITH NECTAR THICK LIQUIDS VIA CUP/STRAW ONE SIP AT A TIME, ALTERNATE SOLIDS WITH LIQUIDS, PUREED OR CHOPPED LIKELY SAFER THAN SOFT OR REG TEXTURES GIVEN DEFICITS AND BEHAVIORAL CHALLENGES RECOMMENDATIONS: FOR QUALITY LIFE AND SAFETY PURPOSES, CONTINUE WITH PO GIVING HIM THE DOWNGRADED [facility] SOFT FINELY CHOPPED DIET AND NECTAR THICK LIQUIDS WITH POSTED ASP/REFLUX PRECAUTIONS AND 1 TO 1 FEEDINGS. EDUCATED/TRAINED RN IN UPDATED ASP PREC. LEFT MESSAGE WITH MD REGARDING RESULTS. F/UP DYSPHAGIA MANAGEMENT AND TX INPATIENT AND WITH ST IN [facility] SETTING.
--- NOTE | 2018-09-17 14:31 | Consultation ---
History of Present Illness General Date patient seen: Sep 16, 2018 Chief Complaint: Dyspnea/Respdistress Present Illness HPI 68 year old male with hx of developmental delay, seizures presented on 09/13 to ER with CC of with altered mentation and cough with shortness of breath. His temperature was 102 on admission. His cxr showed bilateral infiltrate and he was admitted to treatment of his bilateral pneumonia. So far there is one sputum culture available that is negative. Pt has more cough and sound congested. He can't express his complaints, but seems to be in discomfort. Allergies: Coded Allergies: No Known Allergies (Unverified , 10/20/14) Medication History Scheduled Benztropine Mesylate* (Benztropine Mesylate*), 2 MG ORAL BID, (Reported) Calcium Carbonate (Ovir-Ayn-242), 500 MG PO DAILY, (Reported) Clotrimazole* (Lotrimin*), 1 APPLIC TOPIC PRN, (Reported) Diazepam* (Diazepam*), 10 MG ORAL PRN, (Reported) Divalproex Sodium* (Depakote*), 250 MG PO Q12HR, (Reported) Docusate Sodium* (Colace*), 100 MG ORAL TWICE A DAY, (Reported) Escitalopram Oxalate (Escitalopram Oxalate*), 20 MG ORAL DAILY, (Reported) Famotidine (Famotidine), 40 MG ORAL EVERY 12 HOURS, (Reported) Fluocinolone Acet (Fluocinolone Acetonide), 15 GM EXT PRN, (Reported) Linaclotide (Linzess), 145 MCG PO DAILY, (Reported) Magnesium Hydroxide (Milk of Magnesia), 30 ML ORAL DAILY, (Reported) Magnesium Hydroxide* (Milk Of Magnesia*), 30 ML ORAL DAILY, (Reported) Memantine Hcl* (Namenda*), 10 MG ORAL TWICE A DAY, (Reported) Omeprazole (Omeprazole), 20 MG ORAL DAILY, (Reported) Risperidone* (Risperdal*), 3 MG PO BID, (Reported) Topiramate* (Topamax*), 100 MG ORAL TWICE A DAY, (Reported) Trazodone* (Trazodone*), 150 MG ORAL BEDTIME, (Reported) Scheduled PRN Acetaminophen* (Acetaminophen*), 650 MG RECTAL Q6H PRN for For Pain, (Reported) Hydrocodone Bit/Acetaminophen 5-325* (Chickasha 5-325*), 1 TAB ORAL Q6H PRN for For Pain, (Reported) Miscellaneous Medications Melatonin/Pyridoxine HCl (B6) (Melatonin 3 mg Tablet), 1 EACH PO, (Reported) Patient History Healthcare decision maker Resuscitation status Full Code Advanced Directive on File Past Medical/Surgical History Past Medical/Surgical History: (1) Depression (2) Seizure disorder (3) Development delay Review of Systems All Other Systems: negative except mentioned in HPI Physical Exam General Appearance: WD/WN Lines, tubes and drains: peripheral HEENT: normocephalic, atraumatic Neck: non-tender, normal alignment Respiratory/Chest: chest wall non-tender, lungs clear Breasts: no masses Cardiovascular/Chest: normal peripheral pulses, normal rate Abdomen: normal bowel sounds, non tender Genitourinary/Rectal: normal genital exam, normal rectal exam Extremities: normal range of motion, non-tender Skin Exam: normal pigmentation 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 Last 24 Hour Vital Signs Date Time Temp Pulse Resp B/P (MAP) Pulse Ox O2 Delivery O2 Flow Rate FiO2 09/17/18 11:12 Room Air 09/17/18 11:12 Room Air 09/17/18 09:00 Room Air 09/17/18 08:00 97.7 72 20 114/68 (83) 95 09/17/18 07:50 Room Air 09/17/18 07:50 Room Air 09/17/18 07:50 Room Air 09/17/18 07:48 Room Air 09/17/18 03:40 Room Air 09/17/18 03:40 Room Air 09/17/18 00:00 98.7 73 21 102/65 (77) 100 09/16/18 23:09 Room Air 09/16/18 23:05 77 20 96 Room Air 09/16/18 20:00 98.5 68 17 127/73 (91) 97 09/16/18 19:56 Room Air 09/16/18 19:48 68 18 99 Room Air 09/16/18 19:38 Room Air 09/16/18 19:38 94 Room Air 09/16/18 19:38 67 18 94 Room Air 09/16/18 16:00 98.4 92 21 112/71 (85) 97 09/16/18 15:39 79 20 98 Room Air 21 09/16/18 15:31 74 20 94 Room Air 21 Intake and Output 09/16/18 09/17/18 19:00 07:00 Intake Total 515 ml 200 ml Balance 515 ml 200 ml Intake Oral 240 ml IV Total 275 ml 200 ml # Voids 3 4 # Bowel Movements 2 Laboratory Tests Test 09/17/18 06:11 White Blood Count 7.1 K/UL (4.8-10.8) Red Blood Count 3.93 M/UL (4.70-6.10) L Hemoglobin 12.6 G/DL (14.2-18.0) L Hematocrit 37.3 % (42.0-52.0) L Mean Corpuscular Volume 95 FL (80-99) Mean Corpuscular Hemoglobin 32.0 PG (27.0-31.0) H Mean Corpuscular Hemoglobin Concent 33.6 G/DL (32.0-36.0) Red Cell Distribution Width 13.1 % (11.6-14.8) Platelet Count 140 K/UL (150-450) L Mean Platelet Volume 5.7 FL (6.5-10.1) L Neutrophils (%) (Auto) % (45.0-75.0) Lymphocytes (%) (Auto) % (20.0-45.0) Monocytes (%) (Auto) % (1.0-10.0) Eosinophils (%) (Auto) % (0.0-3.0) Basophils (%) (Auto) % (0.0-2.0) Differential Total Cells Counted 100 Neutrophils % (Manual) 70 % (45-75) Lymphocytes % (Manual) 16 % (20-45) L Monocytes % (Manual) 12 % (1-10) H Eosinophils % (Manual) 1 % (0-3) Basophils % (Manual) 1 % (0-2) Band Neutrophils 0 % (0-8) Platelet Estimate Decreased L Platelet Morphology Normal Red Blood Cell Morphology Normal Sodium Level 140 MMOL/L (136-145) Potassium Level 4.0 MMOL/L (3.5-5.1) Chloride Level 107 MMOL/L (98-107) Carbon Dioxide Level 20 MMOL/L (21-32) L Anion Gap 14 mmol/L (5-15) Blood Urea Nitrogen 13 mg/dL (7-18) Creatinine 0.6 MG/DL (0.55-1.30) Estimat Glomerular Filtration Rate > 60 mL/min (>60) Glucose Level 76 MG/DL (74-106) Calcium Level 8.4 MG/DL (8.5-10.1) L Height (Feet): 5 Height (Inches): 8.00 Weight (Pounds): 158 Medications Current Medications Medications (Trade) Dose Ordered Sig/Adams Route PRN Reason Start Time Stop Time Status Last Admin Dose Admin Acetaminophen (Tylenol) 650 mg Q6H PRN RECTAL Mild Pain (Pain Scale 1-3) 09/15/18 16:00 10/14/18 15:59 Acetaminophen/ Hydrocodone Bitart (Chickasha 5/325) 1 tab Q6H PRN ORAL For Pain 09/15/18 15:00 09/21/18 14:59 Albuterol/ Ipratropium (Albuterol/ Ipratropium) 3 ml Q4HRT HHN 09/15/18 15:00 09/19/18 02:59 09/17/18 07:46 Azithromycin 500 mg/Sodium Chloride 275 ml @ 275 mls/hr DAILY IV 09/16/18 09:00 09/21/18 08:59 09/17/18 08:16 Calcium Carbonate (Tums) 500 mg Q3H PRN ORAL flatulence 09/15/18 15:30 10/14/18 00:29 Ceftriaxone Sodium 1 gm/ Dextrose 55 ml @ 110 mls/hr DAILY@1000 IVPB 09/16/18 10:00 09/23/18 09:59 09/17/18 10:38 Divalproex Sodium (Depakote) 250 mg EVERY 12 HOURS ORAL 09/15/18 21:00 10/14/18 08:59 09/17/18 08:07 Docusate Sodium (Colace) 100 mg TWICE A DAY ORAL 09/15/18 18:00 10/14/18 08:59 09/17/18 08:08 Escitalopram Oxalate (Lexapro) 20 mg DAILY ORAL 09/16/18 09:00 10/14/18 08:59 09/17/18 08:07 Heparin Sodium (Porcine) (Heparin 5000 units/ml) 5,000 units EVERY 12 HOURS SUBQ 09/15/18 21:00 10/14/18 08:59 09/16/18 09:20 Lorazepam (Ativan) 1 mg Q6H PRN ORAL For Anxiety 09/15/18 15:00 09/22/18 14:59 09/17/18 10:37 Magnesium Oxide (Mag-Ox 400mg) 400 mg THREE TIMES A DAY ORAL 09/15/18 18:00 10/14/18 08:59 09/17/18 13:46 Metronidazole 100 ml @ 100 mls/hr Q8HR IVPB 09/16/18 22:00 09/23/18 21:59 09/17/18 04:56 Promethazine HCl/ Codeine (Phenergan with Codeine) 5 ml Q4H PRN ORAL For Cough 09/16/18 13:15 10/16/18 13:14 Risperidone (RisperDAL) 3 mg BID ORAL 09/15/18 18:00 10/14/18 08:59 09/17/18 08:08 Theophylline (Alfredito-Dur) 100 mg EVERY 12 HOURS ORAL 09/16/18 21:00 10/16/18 20:59 09/17/18 08:07 Topiramate (Topamax) 100 mg EVERY 12 HOURS ORAL 09/15/18 21:00 10/14/18 08:59 09/17/18 08:08 Assessment/Plan Problem List: (1) Right lower lobe pneumonia ICD Codes: J18.1 - Lobar pneumonia, unspecified organism SNOMED: 345038856 Qualifiers: Qualified Codes: J18.1 - Lobar pneumonia, unspecified organism (2) Sepsis ICD Codes: A41.9 - Sepsis, unspecified organism SNOMED: 24418063 (3) Seizure disorder ICD Codes: G40.909 - Seizure disorder SNOMED: 405491949 (4) Depression ICD Codes: F32.9 - Depression SNOMED: 00441561 (5) Psychotic disorder ICD Codes: F29 - Unspecified psychosis not due to a substance or known physiological condition SNOMED: 84692756 (6) Development delay ICD Codes: R62.50 - Development delay SNOMED: 813796923 Assessment/Plan cxr today, send sputum again continue antibiotics chest PT incentive spirometry antitussives psychiatry evaluation. Jh Bates MD Sep 17, 2018 14:31
--- NOTE | 2018-09-17 14:33 | Pulmonology Progress Note ---
Assessment/Plan Problems: (1) Right lower lobe pneumonia (2) Sepsis (3) Seizure disorder (4) Depression (5) Psychotic disorder (6) Development delay Assessment/Plan cxr reviewed, Left lung better, right side unchanged titrate fio2 to sat of 92% send sputum again continue antibiotics chest PT incentive spirometry antitussives psychiatry evaluation. Subjective ROS Limited/Unobtainable: No Interval Events: sounds better, less cough Allergies: Coded Allergies: No Known Allergies (Unverified , 10/20/14) Objective Last 24 Hour Vital Signs Date Time Temp Pulse Resp B/P (MAP) Pulse Ox O2 Delivery O2 Flow Rate FiO2 09/17/18 11:12 Room Air 21 09/17/18 11:12 Room Air 21 09/17/18 09:00 Room Air 09/17/18 08:00 97.7 72 20 114/68 (83) 95 09/17/18 07:50 Room Air 21 09/17/18 07:50 Room Air 21 09/17/18 07:50 Room Air 21 09/17/18 07:48 Room Air 21 09/17/18 03:40 Room Air 21 09/17/18 03:40 Room Air 21 09/17/18 00:00 98.7 73 21 102/65 (77) 100 09/16/18 23:09 Room Air 21 09/16/18 23:05 77 20 96 Room Air 21 09/16/18 20:00 98.5 68 17 127/73 (91) 97 09/16/18 19:56 Room Air 09/16/18 19:48 68 18 99 Room Air 21 09/16/18 19:38 Room Air 21 09/16/18 19:38 94 Room Air 21 09/16/18 19:38 67 18 94 Room Air 21 09/16/18 16:00 98.4 92 21 112/71 (85) 97 09/16/18 15:39 79 20 98 Room Air 21 09/16/18 15:31 74 20 94 Room Air 21 Intake and Output 09/16/18 09/17/18 19:00 07:00 Intake Total 515 ml 200 ml Balance 515 ml 200 ml Intake Oral 240 ml IV Total 275 ml 200 ml # Voids 3 4 # Bowel Movements 2 General Appearance: WD/WN HEENT: normocephalic, atraumatic Respiratory/Chest: chest wall non-tender, crackles/rales Cardiovascular: normal peripheral pulses, normal rate Abdomen: normal bowel sounds, soft, non tender Genitourinary: normal external genitalia Skin: no rash Laboratory Tests 09/17/18 06:11: White Blood Count 7.1, Red Blood Count 3.93L, Hemoglobin 12.6L, Hematocrit 37.3L , Mean Corpuscular Volume 95, Mean Corpuscular Hemoglobin 32.0H, Mean Corpuscular Hemoglobin Concent 33.6, Red Cell Distribution Width 13.1, Platelet Count 140L, Mean Platelet Volume 5.7L, Neutrophils (%) (Auto) , Lymphocytes (%) (Auto) , Monocytes (%) (Auto) , Eosinophils (%) (Auto) , Basophils (%) (Auto) , Differential Total Cells Counted 100, Neutrophils % (Manual) 70, Lymphocytes % ( Manual) 16L, Monocytes % (Manual) 12H, Eosinophils % (Manual) 1, Basophils % ( Manual) 1, Band Neutrophils 0, Platelet Estimate DecreasedL, Platelet Morphology Normal, Red Blood Cell Morphology Normal, Sodium Level 140, Potassium Level 4.0, Chloride Level 107, Carbon Dioxide Level 20L, Anion Gap 14 , Blood Urea Nitrogen 13, Creatinine 0.6, Estimat Glomerular Filtration Rate > 60, Glucose Level 76, Calcium Level 8.4L Current Medications Medications (Trade) Dose Ordered Sig/Adams Route PRN Reason Start Time Stop Time Status Last Admin Dose Admin Acetaminophen (Tylenol) 650 mg Q6H PRN RECTAL Mild Pain (Pain Scale 1-3) 09/15/18 16:00 10/14/18 15:59 Acetaminophen/ Hydrocodone Bitart ([place] 5/325) 1 tab Q6H PRN ORAL For Pain 09/15/18 15:00 09/21/18 14:59 Albuterol/ Ipratropium (Albuterol/ Ipratropium) 3 ml Q4HRT HHN 09/15/18 15:00 09/19/18 02:59 09/17/18 07:46 Azithromycin 500 mg/Sodium Chloride 275 ml @ 275 mls/hr DAILY IV 09/16/18 09:00 09/21/18 08:59 09/17/18 08:16 Calcium Carbonate (Tums) 500 mg Q3H PRN ORAL flatulence 09/15/18 15:30 10/14/18 00:29 Ceftriaxone Sodium 1 gm/ Dextrose 55 ml @ 110 mls/hr DAILY@1000 IVPB 09/16/18 10:00 09/23/18 09:59 09/17/18 10:38 Divalproex Sodium (Depakote) 250 mg EVERY 12 HOURS ORAL 09/15/18 21:00 10/14/18 08:59 09/17/18 08:07 Docusate Sodium (Colace) 100 mg TWICE A DAY ORAL 09/15/18 18:00 10/14/18 08:59 09/17/18 08:08 Escitalopram Oxalate (Lexapro) 20 mg DAILY ORAL 09/16/18 09:00 10/14/18 08:59 09/17/18 08:07 Heparin Sodium (Porcine) (Heparin 5000 units/ml) 5,000 units EVERY 12 HOURS SUBQ 09/15/18 21:00 10/14/18 08:59 09/16/18 09:20 Lorazepam (Ativan) 1 mg Q6H PRN ORAL For Anxiety 09/15/18 15:00 09/22/18 14:59 09/17/18 10:37 Magnesium Oxide (Mag-Ox 400mg) 400 mg THREE TIMES A DAY ORAL 09/15/18 18:00 10/14/18 08:59 09/17/18 13:46 Metronidazole 100 ml @ 100 mls/hr Q8HR IVPB 09/16/18 22:00 09/23/18 21:59 09/17/18 04:56 Promethazine HCl/ Codeine (Phenergan with Codeine) 5 ml Q4H PRN ORAL For Cough 09/16/18 13:15 10/16/18 13:14 Risperidone (RisperDAL) 3 mg BID ORAL 09/15/18 18:00 10/14/18 08:59 09/17/18 08:08 Theophylline (Alfredito-Dur) 100 mg EVERY 12 HOURS ORAL 09/16/18 21:00 10/16/18 20:59 09/17/18 08:07 Topiramate (Topamax) 100 mg EVERY 12 HOURS ORAL 09/15/18 21:00 10/14/18 08:59 09/17/18 08:08 Jh Bates MD Sep 17, 2018 14:33
[2018-09-17] MEDS ORDERED: Tubing IV Secondary IV ONE (15:15)
--- NOTE | 2018-09-17 15:53 | Infectious Diseases Prog Note ---
Assessment/Plan Assessment/Plan ASSESSMENT AND PLAN: 1. CAP, possible aspiration pna, fevers, hypoxia - rocephin and azithromycin, flagyl - consider po abx soon if continues to improve - chest x-ray improved, swallow evaluation ordered - monitor labs, monitor chest xr-ay - f/u on legionella and mycoplasma, sc-nf - clinically better, fevers resolved 2. vre colonization and isolation 3. History of epilepsy and seizures. Avoid pro-seizure medications. 4. Constipation. 5. Depression. 6. Mental retardation. 7. Developmental delay. 8. Renal insufficiency. 9. Hypoxia. 10. Past medical history is noted. 11. No known drug allergies. 12. Social history is negative. 13. Family history is noncontributory. 14. MAR is noted. 15. Case was discussed with RN. 16. Case was discussed with Dr. Garcia. 17. Notes and records were noted. 18. Orders were entered. Subjective Constitutional: Reports: fatigue, other - alert ; Denies: fever HEENT: Denies: congestion Respiratory: Denies: shortness of breath Cardiovascular: Denies: chest pain Gastrointestinal/Abdominal: Denies: nausea, vomiting, diarrhea Genitourinary: Denies: dysuria Neurologic: Denies: headache Psychiatric: Denies: depression Skin: Denies: rash Hematologic: Denies: bleeding Musculoskeletal: Denies: pain Allergies: Coded Allergies: No Known Allergies (Unverified , 10/20/14) Objective Vital Signs Last 24 Hour Vital Signs Date Time Temp Pulse Resp B/P (MAP) Pulse Ox O2 Delivery O2 Flow Rate FiO2 09/17/18 15:35 Room Air 09/17/18 15:35 Room Air 09/17/18 11:12 Room Air 09/17/18 11:12 Room Air 09/17/18 09:00 Room Air 09/17/18 08:00 97.7 72 20 114/68 (83) 95 09/17/18 07:50 Room Air 09/17/18 07:50 Room Air 09/17/18 07:50 Room Air 09/17/18 07:48 Room Air 09/17/18 03:40 Room Air 09/17/18 03:40 Room Air 09/17/18 00:00 98.7 73 21 102/65 (77) 100 09/16/18 23:09 Room Air 21 09/16/18 23:05 77 20 96 Room Air 21 09/16/18 20:00 98.5 68 17 127/73 (91) 97 09/16/18 19:56 Room Air 09/16/18 19:48 68 18 99 Room Air 21 09/16/18 19:38 Room Air 21 09/16/18 19:38 94 Room Air 21 09/16/18 19:38 67 18 94 Room Air 21 09/16/18 16:00 98.4 92 21 112/71 (85) 97 Height (Feet): 5 Height (Inches): 8.00 Weight (Pounds): 158 General Appearance: no acute distress HEENT: normocephalic, atraumatic, anicteric, mucous membranes moist Respiratory/Chest: crackles/rales, rhonchi - bilaterally Cardiovascular: normal rate, regular rhythm, no gallop/murmur, no JVD Abdomen: normal bowel sounds, soft, non tender, no organomegaly, non distended Genitourinary: other - no pastrana Extremities: no cyanosis Skin: no rash 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 The left lung and pleural space are probably clear, equivocal parenchymal changes on the left previously demonstrated are no longer evident. The heart is borderline enlarged Impression: Persistent hazy infiltrate versus edema on the right, probably unchanged over 2 days Apparent improvement of previously demonstrated left-sided parenchymal disease Microbiology Date/Time Source Procedure Growth Status 09/13/18 20:05 Blood Blood Culture - Preliminary NO GROWTH AFTER 72 HOURS Resulted 09/13/18 21:45 Nasal Nares Influenza Types A,B Antigen (NIKHIL) - Final Complete 09/13/18 20:30 Rectum - Final NO CARBAPENEM-RESISTANT ENTEROBACTERI... Complete Laboratory Tests Test 09/17/18 06:11 White Blood Count 7.1 K/UL (4.8-10.8) Red Blood Count 3.93 M/UL (4.70-6.10) L Hemoglobin 12.6 G/DL (14.2-18.0) L Hematocrit 37.3 % (42.0-52.0) L Mean Corpuscular Volume 95 FL (80-99) Mean Corpuscular Hemoglobin 32.0 PG (27.0-31.0) H Mean Corpuscular Hemoglobin Concent 33.6 G/DL (32.0-36.0) Red Cell Distribution Width 13.1 % (11.6-14.8) Platelet Count 140 K/UL (150-450) L Mean Platelet Volume 5.7 FL (6.5-10.1) L Neutrophils (%) (Auto) % (45.0-75.0) Lymphocytes (%) (Auto) % (20.0-45.0) Monocytes (%) (Auto) % (1.0-10.0) Eosinophils (%) (Auto) % (0.0-3.0) Basophils (%) (Auto) % (0.0-2.0) Differential Total Cells Counted 100 Neutrophils % (Manual) 70 % (45-75) Lymphocytes % (Manual) 16 % (20-45) L Monocytes % (Manual) 12 % (1-10) H Eosinophils % (Manual) 1 % (0-3) Basophils % (Manual) 1 % (0-2) Band Neutrophils 0 % (0-8) Platelet Estimate Decreased L Platelet Morphology Normal Red Blood Cell Morphology Normal Sodium Level 140 MMOL/L (136-145) Potassium Level 4.0 MMOL/L (3.5-5.1) Chloride Level 107 MMOL/L (98-107) Carbon Dioxide Level 20 MMOL/L (21-32) L Anion Gap 14 mmol/L (5-15) Blood Urea Nitrogen 13 mg/dL (7-18) Creatinine 0.6 MG/DL (0.55-1.30) Estimat Glomerular Filtration Rate > 60 mL/min (>60) Glucose Level 76 MG/DL (74-106) Calcium Level 8.4 MG/DL (8.5-10.1) L Current Medications Medications (Trade) Dose Ordered Sig/Adams Route PRN Reason Start Time Stop Time Status Last Admin Dose Admin Acetaminophen (Tylenol) 650 mg Q6H PRN RECTAL Mild Pain (Pain Scale 1-3) 09/15/18 16:00 10/14/18 15:59 Acetaminophen/ Hydrocodone Bitart ([place] 5/325) 1 tab Q6H PRN ORAL For Pain 09/15/18 15:00 09/21/18 14:59 Albuterol/ Ipratropium (Albuterol/ Ipratropium) 3 ml Q4HRT HHN 09/15/18 15:00 09/19/18 02:59 09/17/18 07:46 Azithromycin 500 mg/Sodium Chloride 275 ml @ 275 mls/hr DAILY IV 09/16/18 09:00 09/21/18 08:59 09/17/18 08:16 Calcium Carbonate (Tums) 500 mg Q3H PRN ORAL flatulence 09/15/18 15:30 10/14/18 00:29 Ceftriaxone Sodium 1 gm/ Dextrose 55 ml @ 110 mls/hr DAILY@1000 IVPB 09/16/18 10:00 09/23/18 09:59 09/17/18 10:38 Divalproex Sodium (Depakote) 250 mg EVERY 12 HOURS ORAL 09/15/18 21:00 10/14/18 08:59 09/17/18 08:07 Docusate Sodium (Colace) 100 mg TWICE A DAY ORAL 09/15/18 18:00 10/14/18 08:59 09/17/18 08:08 Escitalopram Oxalate (Lexapro) 20 mg DAILY ORAL 09/16/18 09:00 10/14/18 08:59 09/17/18 08:07 Heparin Sodium (Porcine) (Heparin 5000 units/ml) 5,000 units EVERY 12 HOURS SUBQ 09/15/18 21:00 10/14/18 08:59 09/16/18 09:20 Lorazepam (Ativan) 1 mg Q6H PRN ORAL For Anxiety 09/15/18 15:00 09/22/18 14:59 09/17/18 10:37 Magnesium Oxide (Mag-Ox 400mg) 400 mg THREE TIMES A DAY ORAL 09/15/18 18:00 10/14/18 08:59 09/17/18 13:46 Metronidazole 100 ml @ 100 mls/hr Q8HR IVPB 09/16/18 22:00 09/23/18 21:59 09/17/18 14:50 Promethazine HCl/ Codeine (Phenergan with Codeine) 5 ml Q4H PRN ORAL For Cough 09/16/18 13:15 10/16/18 13:14 Risperidone (RisperDAL) 3 mg BID ORAL 09/15/18 18:00 10/14/18 08:59 09/17/18 08:08 Theophylline (Alfredito-Dur) 100 mg EVERY 12 HOURS ORAL 09/16/18 21:00 10/16/18 20:59 09/17/18 08:07 Topiramate (Topamax) 100 mg EVERY 12 HOURS ORAL 09/15/18 21:00 10/14/18 08:59 09/17/18 08:08 Peyman Garcia MD Sep 17, 2018 15:53
[2018-09-17 15:55] VITALS: BP 128/74
--- NOTE | 2018-09-17 17:06 | Cardiac Electrophysiology PN ---
Assessment/Plan Assessment/Plan 1. Mild CHF. Elevated brain natriuretic peptide of around 200. However, clinically euvolemic and echo showed normal left ventricular systolic function. I think the primary reason for patient's shortness of breath is his pneumonia, for which he is already on antibiotic. 2. Pneumonia, on ceftriaxone and azithromycin. 3. Mental retardation. 4. History of seizure disorder, on Risperdal and Lexapro. 5. History of skin cancer. Subjective Subjective Nonverbal in restraints. No events Objective Last 24 Hour Vital Signs Date Time Temp Pulse Resp B/P (MAP) Pulse Ox O2 Delivery O2 Flow Rate FiO2 09/17/18 15:55 97.0 74 20 128/74 (92) 96 09/17/18 15:35 Room Air 21 09/17/18 15:35 Room Air 21 09/17/18 11:12 Room Air 21 09/17/18 11:12 Room Air 21 09/17/18 09:00 Room Air 09/17/18 08:00 97.7 72 20 114/68 (83) 95 09/17/18 07:50 Room Air 21 09/17/18 07:50 Room Air 21 09/17/18 07:50 Room Air 21 09/17/18 07:48 Room Air 21 09/17/18 03:40 Room Air 21 09/17/18 03:40 Room Air 21 09/17/18 00:00 98.7 73 21 102/65 (77) 100 09/16/18 23:09 Room Air 21 09/16/18 23:05 77 20 96 Room Air 21 09/16/18 20:00 98.5 68 17 127/73 (91) 97 09/16/18 19:56 Room Air 09/16/18 19:48 68 18 99 Room Air 21 09/16/18 19:38 Room Air 21 09/16/18 19:38 94 Room Air 21 09/16/18 19:38 67 18 94 Room Air 21 Intake and Output 09/16/18 09/17/18 19:00 07:00 Intake Total 515 ml 200 ml Balance 515 ml 200 ml Intake Oral 240 ml IV Total 275 ml 200 ml # Voids 3 4 # Bowel Movements 2 Laboratory Tests Test 09/17/18 06:11 White Blood Count 7.1 K/UL (4.8-10.8) Red Blood Count 3.93 M/UL (4.70-6.10) L Hemoglobin 12.6 G/DL (14.2-18.0) L Hematocrit 37.3 % (42.0-52.0) L Mean Corpuscular Volume 95 FL (80-99) Mean Corpuscular Hemoglobin 32.0 PG (27.0-31.0) H Mean Corpuscular Hemoglobin Concent 33.6 G/DL (32.0-36.0) Red Cell Distribution Width 13.1 % (11.6-14.8) Platelet Count 140 K/UL (150-450) L Mean Platelet Volume 5.7 FL (6.5-10.1) L Neutrophils (%) (Auto) % (45.0-75.0) Lymphocytes (%) (Auto) % (20.0-45.0) Monocytes (%) (Auto) % (1.0-10.0) Eosinophils (%) (Auto) % (0.0-3.0) Basophils (%) (Auto) % (0.0-2.0) Differential Total Cells Counted 100 Neutrophils % (Manual) 70 % (45-75) Lymphocytes % (Manual) 16 % (20-45) L Monocytes % (Manual) 12 % (1-10) H Eosinophils % (Manual) 1 % (0-3) Basophils % (Manual) 1 % (0-2) Band Neutrophils 0 % (0-8) Platelet Estimate Decreased L Platelet Morphology Normal Red Blood Cell Morphology Normal Sodium Level 140 MMOL/L (136-145) Potassium Level 4.0 MMOL/L (3.5-5.1) Chloride Level 107 MMOL/L (98-107) Carbon Dioxide Level 20 MMOL/L (21-32) L Anion Gap 14 mmol/L (5-15) Blood Urea Nitrogen 13 mg/dL (7-18) Creatinine 0.6 MG/DL (0.55-1.30) Estimat Glomerular Filtration Rate > 60 mL/min (>60) Glucose Level 76 MG/DL (74-106) Calcium Level 8.4 MG/DL (8.5-10.1) L Objective HEAD AND NECK: No JVD. LUNGS: Coarse rhonchi bilaterally. CARDIOVASCULAR: Regular S1 and S2 with no gallop or murmur. ABDOMEN: Soft. EXTREMITIES: No pitting edema. Sebas Momin MD Sep 17, 2018 17:06
--- NOTE | 2018-09-17 19:30 | NUR ---
HAND-OFF: Report given to SHAMIKA Clark.
[2018-09-17 20:00] VITALS: BP 104/60
--- NOTE | 2018-09-17 20:43 | General Progress Note ---
Assessment/Plan Problem List: (1) Right lower lobe pneumonia ICD Codes: J18.1 - Lobar pneumonia, unspecified organism SNOMED: 480584267 Qualifiers: Qualified Codes: J18.1 - Lobar pneumonia, unspecified organism (2) Constipation ICD Codes: K59.00 - Constipation SNOMED: 89184310 (3) Depression ICD Codes: F32.9 - Depression SNOMED: 58454295 (4) Seizure disorder ICD Codes: G40.909 - Seizure disorder SNOMED: 445733411 (5) Mental retardation ICD Codes: F79 - Mental retardation SNOMED: 67477986 (6) Development delay ICD Codes: R62.50 - Development delay SNOMED: 353349108 (7) Renal insufficiency ICD Codes: N28.9 - Disorder of kidney and ureter, unspecified SNOMED: 470005833, 777016003 (8) Hypoxia ICD Codes: R09.02 - Hypoxemia SNOMED: 227851464, 132271734 Status: doing well Assessment/Plan Assessment/Plan Problems: (1) Right lower lobe pneumonia (2) Constipation (3) Depression (4) Seizure disorder (5) Mental retardation (6) Development delay (7) Renal insufficiency (8) Hypoxia (9) VRE positive (10) agitation Assessment/Plan plan: - admit to med/surg - Duoneb q 4 - oxygen 2 L nc - ID and cardiology consult - echo - repeat chest xray - IV Ceftriaxone and Azithromycin - VTE prophylaxis with Heparin sq bid - Tylenol Prn pain fever - Psychiatry consult for agitation - soft bilateral wrist restraints - nurses' association counselor to assist with meals - pica precautions discussed with nurse - am labs fu cardiology recommendations ID consult pending - pulmonary consult - VRE isolation - speech swallow eval appreciated - renew soft wrist restraints - flagyl added by ID may need to be off restraints prior to dc home discussed with nurse Subjective Date patient seen: Sep 17, 2018 Allergies: Coded Allergies: No Known Allergies (Unverified , 10/20/14) All Systems: reviewed and negative except above Objective Last 24 Hour Vital Signs Date Time Temp Pulse Resp B/P (MAP) Pulse Ox O2 Delivery O2 Flow Rate FiO2 09/17/18 20:25 78 20 99 Room Air 21 09/17/18 20:15 76 20 92 Room Air 21 09/17/18 20:14 Room Air 21 09/17/18 20:14 94 Room Air 21 09/17/18 20:00 97.8 77 18 104/60 (75) 94 09/17/18 15:55 97.0 74 20 128/74 (92) 96 09/17/18 15:35 Room Air 21 09/17/18 15:35 Room Air 21 09/17/18 11:12 Room Air 21 09/17/18 11:12 Room Air 21 09/17/18 09:00 Room Air 09/17/18 08:00 97.7 72 20 114/68 (83) 95 09/17/18 07:50 Room Air 21 09/17/18 07:50 Room Air 21 09/17/18 07:50 Room Air 21 09/17/18 07:48 Room Air 21 09/17/18 03:40 Room Air 21 09/17/18 03:40 Room Air 21 09/17/18 00:00 98.7 73 21 102/65 (77) 100 09/16/18 23:09 Room Air 21 09/16/18 23:05 77 20 96 Room Air 21 Intake and Output 09/16/18 09/17/18 19:00 07:00 Intake Total 515 ml 200 ml Balance 515 ml 200 ml Intake Oral 240 ml IV Total 275 ml 200 ml # Voids 3 4 # Bowel Movements 2 Laboratory Tests 09/17/18 06:11: White Blood Count 7.1, Red Blood Count 3.93L, Hemoglobin 12.6L, Hematocrit 37.3L , Mean Corpuscular Volume 95, Mean Corpuscular Hemoglobin 32.0H, Mean Corpuscular Hemoglobin Concent 33.6, Red Cell Distribution Width 13.1, Platelet Count 140L, Mean Platelet Volume 5.7L, Neutrophils (%) (Auto) , Lymphocytes (%) (Auto) , Monocytes (%) (Auto) , Eosinophils (%) (Auto) , Basophils (%) (Auto) , Differential Total Cells Counted 100, Neutrophils % (Manual) 70, Lymphocytes % ( Manual) 16L, Monocytes % (Manual) 12H, Eosinophils % (Manual) 1, Basophils % ( Manual) 1, Band Neutrophils 0, Platelet Estimate DecreasedL, Platelet Morphology Normal, Red Blood Cell Morphology Normal, Sodium Level 140, Potassium Level 4.0, Chloride Level 107, Carbon Dioxide Level 20L, Anion Gap 14 , Blood Urea Nitrogen 13, Creatinine 0.6, Estimat Glomerular Filtration Rate > 60, Glucose Level 76, Calcium Level 8.4L Height (Feet): 5 Height (Inches): 8.00 Weight (Pounds): 158 General Appearance: no apparent distress, alert EENT: PERRL/EOMI, pharynx normal Neck: non-tender, supple Cardiovascular: normal rate, regular rhythm, no gallop/murmur, no JVD Respiratory/Chest: chest wall non-tender, normal breath sounds, no respiratory distress Abdomen: non tender, soft, no mass Extremities: non-tender, normal inspection, no calf tenderness Edema: no edema noted Arm (L), no edema noted Arm (R), no edema noted Leg (L), no edema noted Leg (R), no edema noted Pedal (L), no edema noted Pedal (R), no edema noted Generalized Neurologic: alert Skin: warm/dry Lymphatic: normal anterior cervical (L), normal anterior cervical (R), normal posterior cervical (L), normal posterior cervical (R), normal submandibular (L) , normal submandibular (R), normal supraclavicular (L), normal supraclavicular ( R), normal axillary (L), normal axillary (R), normal inguinal (L), normal inguinal (R), normal other Orlin Garcia MD Sep 17, 2018 20:43
--- NOTE | 2018-09-17 21:00 | NUR ---
NURSE NOTES: Pt is in bed, awake and restless. Vitals stable. Pt has bilat soft wrist restraints, restraints sites asymptomatic. Pt is reoriented, restraint removal criteria discussed with pt, reenforcement needed. Pt was able to take PO medication crushed with apple sauce. Pt swallowed meds well with HOB elevated. pain medication given as ordered PRN. Hydration and nourishment provided. Pt was cleaned and turned. Bed low in position,side rails up and call light within reach. Pt is on seizure precaution.
[2018-09-17] MEDS: metroNIDAZOLE 500mg tab ORAL SCH (21:49)
--- NOTE | 2018-09-17 22:01 | General Progress Note ---
Assessment/Plan Problem List: (1) Psychotic disorder ICD Codes: F29 - Unspecified psychosis not due to a substance or known physiological condition SNOMED: 27368243 (2) Development delay ICD Codes: R62.50 - Development delay SNOMED: 355372797 (3) Depression ICD Codes: F32.9 - Depression SNOMED: 18506586 Status: stable Assessment/Plan trazodone Topamax Risperdal Subjective Neurologic/Psychiatric: Reports: anxiety, depressed, emotional problems Allergies: Coded Allergies: No Known Allergies (Unverified , 10/20/14) Objective Last 24 Hour Vital Signs Date Time Temp Pulse Resp B/P (MAP) Pulse Ox O2 Delivery O2 Flow Rate FiO2 09/17/18 20:25 78 20 99 Room Air 21 09/17/18 20:15 76 20 92 Room Air 21 09/17/18 20:14 Room Air 21 09/17/18 20:14 94 Room Air 21 09/17/18 20:00 97.8 77 18 104/60 (75) 94 09/17/18 15:55 97.0 74 20 128/74 (92) 96 09/17/18 15:35 Room Air 21 09/17/18 15:35 Room Air 21 09/17/18 11:12 Room Air 21 09/17/18 11:12 Room Air 21 09/17/18 09:00 Room Air 09/17/18 08:00 97.7 72 20 114/68 (83) 95 09/17/18 07:50 Room Air 21 09/17/18 07:50 Room Air 21 09/17/18 07:50 Room Air 21 09/17/18 07:48 Room Air 21 09/17/18 03:40 Room Air 21 09/17/18 03:40 Room Air 21 09/17/18 00:00 98.7 73 21 102/65 (77) 100 09/16/18 23:09 Room Air 21 09/16/18 23:05 77 20 96 Room Air 21 Intake and Output 09/16/18 09/17/18 19:00 07:00 Intake Total 515 ml 200 ml Balance 515 ml 200 ml Intake Oral 240 ml IV Total 275 ml 200 ml # Voids 3 4 # Bowel Movements 2 Laboratory Tests 09/17/18 06:11: White Blood Count 7.1, Red Blood Count 3.93L, Hemoglobin 12.6L, Hematocrit 37.3L , Mean Corpuscular Volume 95, Mean Corpuscular Hemoglobin 32.0H, Mean Corpuscular Hemoglobin Concent 33.6, Red Cell Distribution Width 13.1, Platelet Count 140L, Mean Platelet Volume 5.7L, Neutrophils (%) (Auto) , Lymphocytes (%) (Auto) , Monocytes (%) (Auto) , Eosinophils (%) (Auto) , Basophils (%) (Auto) , Differential Total Cells Counted 100, Neutrophils % (Manual) 70, Lymphocytes % ( Manual) 16L, Monocytes % (Manual) 12H, Eosinophils % (Manual) 1, Basophils % ( Manual) 1, Band Neutrophils 0, Platelet Estimate DecreasedL, Platelet Morphology Normal, Red Blood Cell Morphology Normal, Sodium Level 140, Potassium Level 4.0, Chloride Level 107, Carbon Dioxide Level 20L, Anion Gap 14 , Blood Urea Nitrogen 13, Creatinine 0.6, Estimat Glomerular Filtration Rate > 60, Glucose Level 76, Calcium Level 8.4L Height (Feet): 5 Height (Inches): 8.00 Weight (Pounds): 158 General Appearance: alert, confused, agitated Lavonne Clifford MD Sep 17, 2018 22:01
[2018-09-18] VITALS: BP 103/65
--- NOTE | 2018-09-18 01:00 | NUR ---
NURSE NOTES: Pt is released from restraints for ROM. Pt was cleaned and turned. Bilat soft wrist restraints reapplied.
[2018-09-18] MEDS: Albuterol/Ipratropium 3ml neb HHN SCH ×7 (03:00→23:48)
[2018-09-18 04:00] VITALS: BP 119/70
--- NOTE | 2018-09-18 05:00 | NUR ---
NURSE NOTES: Pt keeps on removing IV access. A new IV access established for the second time. New IV site on Right hand 24G.Pt will be monitored.
[2018-09-18] MEDS: LORazepam 1mg tab ORAL PRN ×2 (06:02→21:15)
[2018-09-18] MEDS: metroNIDAZOLE 500mg tab ORAL SCH ×3 (06:02→21:11)
[2018-09-18 06:25] LABS: BASOPHILS % (AUTO) 1.1 % (0.0-2.0); EOSINOPHILS % (AUTO) 1.5 % (0.0-3.0); HEMATOCRIT 36.8 % (42.0-52.0); HEMOGLOBIN 12.5 G/DL (14.2-18.0); LYMPHOCYTES % (AUTO) 15.4 % (20.0-45.0); MEAN CORPUSCULAR VOLUME 95 FL (80-99); MONOCYTES % (AUTO) 13.1 % (1.0-10.0); NEUTROPHILS % (AUTO) 68.9 % (45.0-75.0); PLATELET COUNT 167 K/UL (150-450); RED BLOOD COUNT 3.87 M/UL (4.70-6.10); WHITE BLOOD COUNT 8.1 K/UL (4.8-10.8)
[2018-09-18 07:06] LABS: ANION GAP 13 mmol/L (5-15); BLOOD UREA NITROGEN 11 mg/dL (7-18); CALCIUM 8.5 MG/DL (8.5-10.1); CARBON DIOXIDE 19 MMOL/L (21-32); CHLORIDE 107 MMOL/L (98-107); CREATININE 0.7 MG/DL (0.55-1.30); POTASSIUM 3.3 MMOL/L (3.5-5.1); SODIUM 139 MMOL/L (136-145)
--- NOTE | 2018-09-18 07:10 | NUR ---
HAND-OFF: Report given to Jesus Uriostegui RN and SHAMIKA Sidhu. Informed that pt is fall risk, and that pt removes IV access frequently.
--- NOTE | 2018-09-18 07:15 | NUR ---
NURSE NOTES: RN received pt stable condition. No acute distress or SOB. Bed in low, locked position. Call light within reach. Will continue to monitor.
--- NOTE | 2018-09-18 07:32 | NUR ---
NURSE NOTES: Received patient from Eduardo RN, patient is resting comfortably in bed, no distress noted, bed locked and in owest posiiton, call light within reach, will continue to monitor with Vonnie WICK.
[2018-09-18 08:00] VITALS: BP 119/72
--- NOTE | 2018-09-18 08:08 | General Progress Note ---
Assessment/Plan Assessment/Plan GI CONSULT Assessment - Aspiration risk - Mental retardation/developmental delay - PNA - Agitation / restraints - Mild anemia Recommendations - careful supervised feeding per ST recs - elevate HOB - Abx - monitor for Si/Sx of aspiration - will d/w next of kin re goals of care and possible GT placement Thank you Guy Anand MD Subjective Allergies: Coded Allergies: No Known Allergies (Unverified , 10/20/14) Objective Last 24 Hour Vital Signs Date Time Temp Pulse Resp B/P (MAP) Pulse Ox O2 Delivery O2 Flow Rate FiO2 09/18/18 04:00 97.6 68 18 119/70 (86) 96 09/18/18 03:48 73 20 99 Room Air 21 09/18/18 03:38 72 20 98 Room Air 09/18/18 00:00 97.8 65 18 103/65 (78) 96 09/17/18 23:39 Room Air 21 09/17/18 23:38 Room Air 21 09/17/18 21:00 Room Air 09/17/18 20:25 78 20 99 Room Air 21 09/17/18 20:15 76 20 92 Room Air 21 09/17/18 20:14 Room Air 21 09/17/18 20:14 94 Room Air 21 09/17/18 20:00 97.8 77 18 104/60 (75) 94 09/17/18 15:55 97.0 74 20 128/74 (92) 96 09/17/18 15:35 Room Air 21 09/17/18 15:35 Room Air 21 09/17/18 11:12 Room Air 21 09/17/18 11:12 Room Air 09/17/18 09:00 Room Air Intake and Output 09/17/18 09/18/18 18:59 06:59 Intake Total 1805 ml 240 ml Balance 1805 ml 240 ml Intake Oral 1420 ml 240 ml IV Total 385 ml # Voids 4 3 Laboratory Tests 09/18/18 05:53: White Blood Count 8.1, Red Blood Count 3.87L, Hemoglobin 12.5L, Hematocrit 36.8L , Mean Corpuscular Volume 95, Mean Corpuscular Hemoglobin 32.3H, Mean Corpuscular Hemoglobin Concent 33.9, Red Cell Distribution Width 13.0, Platelet Count 167, Mean Platelet Volume 5.8L, Neutrophils (%) (Auto) 68.9, Lymphocytes ( %) (Auto) 15.4L, Monocytes (%) (Auto) 13.1H, Eosinophils (%) (Auto) 1.5, Basophils (%) (Auto) 1.1, Sodium Level 139, Potassium Level 3.3L, Chloride Level 107, Carbon Dioxide Level 19L, Anion Gap 13, Blood Urea Nitrogen 11, Creatinine 0.7, Estimat Glomerular Filtration Rate > 60, Glucose Level 87, Calcium Level 8.5 Height (Feet): 5 Height (Inches): 8.00 Weight (Pounds): 158 Guy Anand MD Sep 18, 2018 08:08
[2018-09-18] MEDS: Magnesium Oxide 400mg tab ORAL SCH ×3 (08:22→17:37)
[2018-09-18] MEDS: Theophylline ER 100mg ORAL SCH ×2 (08:23→20:48)
[2018-09-18] MEDS: Azithromycin 250mg tab ORAL SCH (08:23)
[2018-09-18] MEDS: Docusate 100mg cap ORAL SCH ×2 (08:23→17:37)
[2018-09-18] MEDS: Topiramate 100mg tab ORAL SCH ×2 (08:23→20:50)
[2018-09-18] MEDS: Heparin 5000 units/ml inj SUBQ SCH ×2 (08:25→20:54)
[2018-09-18] MEDS: cefTRIAXone 1 GM in D5W 55 ML IVPB SCH (10:02)
--- NOTE | 2018-09-18 10:20 | NUR ---
SPEECH PATHOLOGY NOTE: S: PATIENT CLEARED FOR ST INTERVENTION BY SHAMIKA BURGESS. PATIENT ALERT, AWAKE, NON/VERBAL, HX: DEVELOPMENTAL DELAY O; DYSPHAGIA TREATMENT A; PATIENT TOLERATING CURRENT DIET WITH NO OVERT S/S OF ASPIRATION REVIEWED MEALTIME PROTOCOL WITH RN AND VICE PRESIDENT OF ADVERTISING RE: LIQUID WASH ALTERNATED WITH SOLIDS, INCLUDING PUREE/BASED MEDICATION. THEY VERBALIZED UNDERSTANDING PATIENT'S DECREASED MENTATION PREVENTS HIM FROM IMPLEMENTING COMPENSATORY SWALLOW STRATEGIES. CRUCIAL FOR STAFF TO CONSISTENTLY APPLY ASPIRATION PRECAUTIONS P: CONTINUE PER POC THANK YOU FOR THIS REFERRAL. Rere RINCON MA/MSLP
--- NOTE | 2018-09-18 11:04 | Diagnostic Imaging Report ---
Indication: Cough Technique: One view of the chest Comparison: For 09/02/2018 Findings: Previously reported patchy and hazy airspace disease in the right lung has largely resolved. There is some perihilar atelectasis still present. No new infiltrates. Impression: Improved right lung parenchymal disease, over 2 days, as described
--- NOTE | 2018-09-18 11:25 | NUR ---
NURSE NOTES: RN left message at Dr. Gamboa office regarding potassium level at 3.3. Awaiting call back.
--- NOTE | 2018-09-18 11:27 | NUR ---
RD ASSESSMENT & RECOMMENDATIONS SEE CARE ACTIVITY FOR COMPLETE ASSESSMENT DAILY ESTIMATED NEEDS: Needs based on Pulmonary 71.8kg 25-30 kcals/kg 2863-6475 total kcals 1-1.5 g protein/kg 72-108 g total protein 25-30 mL/kg 1035-6059 total fluid mLs NUTRITION DIAGNOSIS: Swallowing difficulty r/t dysphagia and decreased mentation as evidenced by pt w/ developmental delay, panelboard tank pumper eval w/ recs for 1:1 feeds and diet texture of finely chopped w/ NTL. CURRENT DIET: Soft diet, ms finely chopped w/ NTL PO DIET RECOMMENDATIONS: Regular soft diet/ texture per LOCKSTITCH TOPSTITCHER ADDITIONAL RECOMMENDATIONS: 1) Recalibrate bed scale, currently reading in error 2) Monitor lytes, replete as needed (K=3.3) 3) Add 1 bottle Ensure Enlive daily 4) Add prune juice w/ each meal 5) Close monitoring, h/o PICA
[2018-09-18 12:00] VITALS: BP 121/81
--- NOTE | 2018-09-18 12:30 | Consultation ---
DATE OF CONSULTATION: 09/18/2018 GASTROENTEROLOGY CONSULTATION CONSULTING PHYSICIAN: Guy Anand M.D. CHIEF COMPLAINT: I was asked to see this patient by Dr. Orlin Garcia for evaluation of nutrition and possible gastrostomy tube placement. HISTORY OF PRESENT ILLNESS: The patient is an unfortunate 68-year-old white man with a history of mental retardation and developmental delay, who was brought into the hospital due to cough and chest congestion. Evaluation had showed pneumonia and he is being treated with antibiotics. The patient himself is unable to provide any history due to his mental status and all information is only available from the chart. During the course of this admission, a speech therapy and swallow evaluation has been done including a video swallow study showing the patient being at the risk for some degree of aspiration. For the time being, careful oral feeding has been suggested and followed. The question of possible gastrostomy tube has been raised. PAST MEDICAL HISTORY: Remarkable for history of mental retardation, history of hypertension, pneumonia, history of agitation, seizure disorder, history of skin cancer, and history of pica. FAMILY HISTORY: Not available. SOCIAL HISTORY: The patient has had no recent history of smoking or drinking. ALLERGIES: None. REVIEW OF SYSTEMS: Otherwise unobtainable. MEDICATIONS: See chart list for details. PHYSICAL EXAMINATION: GENERAL: Debilitated, thin, white man, who was confused, but awake, had restraints, seen in his room. HEENT: Normocephalic and atraumatic. Dentition was poor. NECK: Supple. CHEST: Clear to auscultation. CARDIOVASCULAR: Revealed regular rate. ABDOMEN: Soft, flat with good bowel sounds. EXTREMITIES: Revealed no edema. NEUROLOGIC: Notable for the patient's underlying mental retardation and agitation. LABORATORY DATA: Noted. ASSESSMENT: This patient presents with a significant degree of developmental delay and movement disorder. He is at risk for aspiration based on his swallow study and also based on his presentation with pneumonia. On the other hand, he is debilitated with significant degree of lifelong mental retardation and developmental delay. As such, the goals and values of long-term treatment should be discussed with the patient's next of kin. At this time, he can be fed carefully revision. While these evaluations have being done, I will try to contact the next of kin and discuss options without individual. RECOMMENDATIONS: 1. Continue care for oral feeding in a supervised fashion. 2. Aspiration precautions. 3. Elevate head of bed. 4. Antibiotics. 5. Next of kin discussion. Thank you for asking me to participate in the care of this patient. Guy Anand M.D. DR: SHANDRA JOB#: [id number] CC:
--- NOTE | 2018-09-18 12:33 | NUR ---
RADIOLOGY DEPT., CHEST X-RAY DONE.-P.DYE
--- NOTE | 2018-09-18 14:27 | NUR ---
NURSE NOTES: RN paged Dr. Garcia office, 2nd attempt to contact, regarding pt's potassium level - 3.3. Waiting for call back.
--- NOTE | 2018-09-18 14:54 | Pulmonology Progress Note ---
Assessment/Plan Problems: (1) Right lower lobe pneumonia (2) Sepsis (3) Seizure disorder (4) Depression (5) Psychotic disorder (6) Development delay Assessment/Plan cxr reviewed, Left lung better, right side unchanged doing better titrate fio2 to sat of 92% send sputum again continue antibiotics chest PT incentive spirometry antitussives psychiatry evaluation. dc planning Subjective ROS Limited/Unobtainable: No Constitutional: Reports: no symptoms HEENT: Repors: no symptoms Respiratory: Reports: no symptoms Allergies: Coded Allergies: No Known Allergies (Unverified , 10/20/14) Objective Last 24 Hour Vital Signs Date Time Temp Pulse Resp B/P (MAP) Pulse Ox O2 Delivery O2 Flow Rate FiO2 09/18/18 12:00 97.9 81 18 121/81 (94) 95 09/18/18 11:17 81 20 97 Room Air 21 09/18/18 11:08 78 20 95 Room Air 21 09/18/18 09:00 Room Air 09/18/18 08:30 76 20 96 Room Air 09/18/18 08:25 79 20 94 Room Air 21 09/18/18 08:25 94 Room Air 21 09/18/18 08:25 Room Air 21 09/18/18 08:00 98.9 71 18 119/72 (88) 94 09/18/18 04:00 97.6 68 18 119/70 (86) 96 09/18/18 03:48 73 20 99 Room Air 21 09/18/18 03:38 72 20 98 Room Air 21 09/18/18 00:00 97.8 65 18 103/65 (78) 96 09/17/18 23:39 Room Air 21 09/17/18 23:38 Room Air 21 09/17/18 21:00 Room Air 09/17/18 20:25 78 20 99 Room Air 21 09/17/18 20:15 76 20 92 Room Air 21 09/17/18 20:14 Room Air 21 09/17/18 20:14 94 Room Air 21 09/17/18 20:00 97.8 77 18 104/60 (75) 94 09/17/18 15:55 97.0 74 20 128/74 (92) 96 09/17/18 15:35 Room Air 21 09/17/18 15:35 Room Air 21 Intake and Output 09/17/18 09/18/18 19:00 07:00 Intake Total 1805 ml 240 ml Balance 1805 ml 240 ml Intake Oral 1420 ml 240 ml IV Total 385 ml # Voids 4 3 Objective General Appearance: WD/WN HEENT: normocephalic, anicteric Respiratory/Chest: chest wall non-tender, lungs clear Cardiovascular: normal peripheral pulses, normal rate Abdomen: normal bowel sounds, soft, non tender, no scars Extremities: no clubbing Skin: no rash Laboratory Tests 09/18/18 05:53: White Blood Count 8.1, Red Blood Count 3.87L, Hemoglobin 12.5L, Hematocrit 36.8L , Mean Corpuscular Volume 95, Mean Corpuscular Hemoglobin 32.3H, Mean Corpuscular Hemoglobin Concent 33.9, Red Cell Distribution Width 13.0, Platelet Count 167, Mean Platelet Volume 5.8L, Neutrophils (%) (Auto) 68.9, Lymphocytes ( %) (Auto) 15.4L, Monocytes (%) (Auto) 13.1H, Eosinophils (%) (Auto) 1.5, Basophils (%) (Auto) 1.1, Sodium Level 139, Potassium Level 3.3L, Chloride Level 107, Carbon Dioxide Level 19L, Anion Gap 13, Blood Urea Nitrogen 11, Creatinine 0.7, Estimat Glomerular Filtration Rate > 60, Glucose Level 87, Calcium Level 8.5 Current Medications Medications (Trade) Dose Ordered Sig/Adams Route PRN Reason Start Time Stop Time Status Last Admin Dose Admin Acetaminophen (Tylenol) 650 mg Q6H PRN RECTAL Mild Pain (Pain Scale 1-3) 09/15/18 16:00 10/14/18 15:59 Acetaminophen/ Hydrocodone Bitart ([place] 5/325) 1 tab Q6H PRN ORAL For Pain 09/15/18 15:00 09/21/18 14:59 09/17/18 21:49 Albuterol/ Ipratropium (Albuterol/ Ipratropium) 3 ml Q4HRT HHN 09/15/18 15:00 09/19/18 02:59 09/18/18 14:52 Azithromycin (Zithromax) 250 mg DAILY ORAL 09/18/18 09:00 09/25/18 08:59 09/18/18 08:23 Calcium Carbonate (Tums) 500 mg Q3H PRN ORAL flatulence 09/15/18 15:30 10/14/18 00:29 Ceftriaxone Sodium 1 gm/ Dextrose 55 ml @ 110 mls/hr DAILY@1000 IVPB 09/16/18 10:00 09/23/18 09:59 09/18/18 10:02 Divalproex Sodium (Depakote) 250 mg EVERY 12 HOURS ORAL 09/15/18 21:00 10/14/18 08:59 09/18/18 08:23 Docusate Sodium (Colace) 100 mg TWICE A DAY ORAL 09/15/18 18:00 10/14/18 08:59 09/18/18 08:23 Escitalopram Oxalate (Lexapro) 20 mg DAILY ORAL 09/16/18 09:00 10/14/18 08:59 09/18/18 08:23 Heparin Sodium (Porcine) (Heparin 5000 units/ml) 5,000 units EVERY 12 HOURS SUBQ 09/15/18 21:00 10/14/18 08:59 09/18/18 08:25 Lorazepam (Ativan) 1 mg Q6H PRN ORAL For Anxiety 09/15/18 15:00 09/22/18 14:59 09/18/18 06:02 Magnesium Oxide (Mag-Ox 400mg) 400 mg THREE TIMES A DAY ORAL 09/15/18 18:00 10/14/18 08:59 09/18/18 13:27 Metronidazole (Flagyl) 500 mg EVERY 8 HOURS ORAL 09/17/18 22:00 09/24/18 21:59 09/18/18 13:27 Promethazine HCl/ Codeine (Phenergan with Codeine) 5 ml Q4H PRN ORAL For Cough 09/16/18 13:15 10/16/18 13:14 Risperidone (RisperDAL) 3 mg BID ORAL 09/15/18 18:00 10/14/18 08:59 09/18/18 08:22 Theophylline (Alfredito-Dur) 100 mg EVERY 12 HOURS ORAL 09/16/18 21:00 10/16/18 20:59 09/18/18 08:23 Topiramate (Topamax) 100 mg EVERY 12 HOURS ORAL 09/15/18 21:00 10/14/18 08:59 09/18/18 08:23 Jh Bates MD Sep 18, 2018 14:54
--- NOTE | 2018-09-18 15:47 | Cardiac Electrophysiology PN ---
Assessment/Plan Assessment/Plan 1. Mild CHF with brain natriuretic peptide around 200. Clinically euvolemic and echo showed normal left ventricular systolic function. The primary reason for patient's shortness of breath is his pneumonia, for which he is already on antibiotic. 2. Pneumonia, on ceftriaxone and azithromycin. 3. Mental retardation. 4. History of seizure disorder, on Risperdal and Lexapro. 5. History of skin cancer. Subjective Subjective Nonverbal, no events Objective Last 24 Hour Vital Signs Date Time Temp Pulse Resp B/P (MAP) Pulse Ox O2 Delivery O2 Flow Rate FiO2 09/18/18 14:56 75 20 97 Room Air 09/18/18 14:52 77 20 94 Room Air 09/18/18 12:00 97.9 81 18 121/81 (94) 95 09/18/18 11:17 81 20 97 Room Air 09/18/18 11:08 78 20 95 Room Air 09/18/18 09:00 Room Air 09/18/18 08:30 76 20 96 Room Air 09/18/18 08:25 79 20 94 Room Air 09/18/18 08:25 94 Room Air 09/18/18 08:25 Room Air 09/18/18 08:00 98.9 71 18 119/72 (88) 94 09/18/18 04:00 97.6 68 18 119/70 (86) 96 09/18/18 03:48 73 20 99 Room Air 09/18/18 03:38 72 20 98 Room Air 09/18/18 00:00 97.8 65 18 103/65 (78) 96 09/17/18 23:39 Room Air 09/17/18 23:38 Room Air 21 09/17/18 21:00 Room Air 09/17/18 20:25 78 20 99 Room Air 09/17/18 20:15 76 20 92 Room Air 09/17/18 20:14 Room Air 21 09/17/18 20:14 94 Room Air 09/17/18 20:00 97.8 77 18 104/60 (75) 94 09/17/18 15:55 97.0 74 20 128/74 (92) 96 Intake and Output 09/17/18 09/18/18 19:00 07:00 Intake Total 1805 ml 240 ml Balance 1805 ml 240 ml Intake Oral 1420 ml 240 ml IV Total 385 ml # Voids 4 3 Laboratory Tests Test 09/18/18 05:53 White Blood Count 8.1 K/UL (4.8-10.8) Red Blood Count 3.87 M/UL (4.70-6.10) L Hemoglobin 12.5 G/DL (14.2-18.0) L Hematocrit 36.8 % (42.0-52.0) L Mean Corpuscular Volume 95 FL (80-99) Mean Corpuscular Hemoglobin 32.3 PG (27.0-31.0) H Mean Corpuscular Hemoglobin Concent 33.9 G/DL (32.0-36.0) Red Cell Distribution Width 13.0 % (11.6-14.8) Platelet Count 167 K/UL (150-450) Mean Platelet Volume 5.8 FL (6.5-10.1) L Neutrophils (%) (Auto) 68.9 % (45.0-75.0) Lymphocytes (%) (Auto) 15.4 % (20.0-45.0) L Monocytes (%) (Auto) 13.1 % (1.0-10.0) H Eosinophils (%) (Auto) 1.5 % (0.0-3.0) Basophils (%) (Auto) 1.1 % (0.0-2.0) Sodium Level 139 MMOL/L (136-145) Potassium Level 3.3 MMOL/L (3.5-5.1) L Chloride Level 107 MMOL/L (98-107) Carbon Dioxide Level 19 MMOL/L (21-32) L Anion Gap 13 mmol/L (5-15) Blood Urea Nitrogen 11 mg/dL (7-18) Creatinine 0.7 MG/DL (0.55-1.30) Estimat Glomerular Filtration Rate > 60 mL/min (>60) Glucose Level 87 MG/DL (74-106) Calcium Level 8.5 MG/DL (8.5-10.1) Objective HEAD AND NECK: No JVD. LUNGS: Coarse rhonchi bilaterally. CARDIOVASCULAR: Regular S1 and S2 with no gallop or murmur. ABDOMEN: Soft. EXTREMITIES: No edema. Sebas Momin MD Sep 18, 2018 15:47
[2018-09-18 16:00] VITALS: BP 120/81
--- NOTE | 2018-09-18 16:14 | NUR ---
NURSE NOTES: RN left message for Dr. Garcia, 3rd attempt, regarding potassium level at 3.3 and for soft restraint renewal order. Awaiting call back.
[2018-09-18] MEDS ORDERED: Tubing IV Secondary IV ONE (16:44)
[2018-09-18] MEDS ORDERED: NS 275ml ONE (16:44)
--- NOTE | 2018-09-18 18:11 | Diagnostic Imaging Report ---
Indication: Shortness of breath Technique: One view of the chest Comparison: 09/18/2018 Findings: Exam is somewhat underexposed. No definite acute infiltrates, effusions, or congestion noted. The heart size is upper limits normal. Probably no significant interim change Impression: No definite acute process
--- NOTE | 2018-09-18 19:10 | NUR ---
HAND-OFF: Report given to SHAMIKA Najera.
--- NOTE | 2018-09-18 19:23 | NUR ---
NURSE NOTES: Pt received awake, in bed at lowest position, non verbal, with soft wrist restraints in place, IV in place, no c/o pain or signs of distress at the moment, will continue to monitor.
[2018-09-18 20:00] VITALS: BP 112/70
--- NOTE | 2018-09-18 20:47 | General Progress Note ---
Assessment/Plan Problem List: (1) Right lower lobe pneumonia ICD Codes: J18.1 - Lobar pneumonia, unspecified organism SNOMED: 998555516 Qualifiers: Qualified Codes: J18.1 - Lobar pneumonia, unspecified organism (2) Constipation ICD Codes: K59.00 - Constipation SNOMED: 97736181 (3) Depression ICD Codes: F32.9 - Depression SNOMED: 10512907 (4) Seizure disorder ICD Codes: G40.909 - Seizure disorder SNOMED: 057192614 (5) Mental retardation ICD Codes: F79 - Mental retardation SNOMED: 01163298 (6) Development delay ICD Codes: R62.50 - Development delay SNOMED: 145067910 (7) Renal insufficiency ICD Codes: N28.9 - Disorder of kidney and ureter, unspecified SNOMED: 020560864, 656615133 (8) Hypoxia ICD Codes: R09.02 - Hypoxemia SNOMED: 369164837, 879285102 Status: doing well Assessment/Plan Assessment/Plan Problems: (1) Right lower lobe pneumonia (2) Constipation (3) Depression (4) Seizure disorder (5) Mental retardation (6) Development delay (7) Renal insufficiency (8) Hypoxia (9) VRE positive (10) agitation Assessment/Plan plan: - admit to med/surg - Duoneb q 4 - oxygen 2 L nc - ID and cardiology consult - echo - repeat chest xray - IV Ceftriaxone and Azithromycin - VTE prophylaxis with Heparin sq bid - Tylenol Prn pain fever - Psychiatry consult for agitation - soft bilateral wrist restraints - parts counter salesperson to assist with meals - pica precautions discussed with nurse - am labs fu cardiology recommendations ID consult pending - pulmonary consult - VRE isolation - speech swallow eval appreciated - renew soft wrist restraints - flagyl added by ID - Gi consult appreciated may need to be off restraints for 24 hours prior to dc home will dc home when more stable discussed with nurse Subjective Date patient seen: Sep 18, 2018 ROS Limited/Unobtainable: Yes Allergies: Coded Allergies: No Known Allergies (Unverified , 10/20/14) All Systems: reviewed and negative except above Objective Last 24 Hour Vital Signs Date Time Temp Pulse Resp B/P (MAP) Pulse Ox O2 Delivery O2 Flow Rate FiO2 09/18/18 20:09 74 20 97 Room Air 21 09/18/18 20:03 Room Air 21 19 20:03 73 20 97 Room Air 09/18/18 20:02 97 Room Air 09/18/18 16:00 98.0 76 18 120/81 (94) 98 09/18/18 14:56 75 20 97 Room Air 09/18/18 14:52 77 20 94 Room Air 09/18/18 12:00 97.9 81 18 121/81 (94) 95 09/18/18 11:17 81 20 97 Room Air 09/18/18 11:08 78 20 95 Room Air 09/18/18 09:00 Room Air 09/18/18 08:30 76 20 96 Room Air 09/18/18 08:25 79 20 94 Room Air 09/18/18 08:25 94 Room Air 09/18/18 08:25 Room Air 09/18/18 08:00 98.9 71 18 119/72 (88) 94 09/18/18 04:00 97.6 68 18 119/70 (86) 96 09/18/18 03:48 73 20 99 Room Air 09/18/18 03:38 72 20 98 Room Air 09/18/18 00:00 97.8 65 18 103/65 (78) 96 09/17/18 23:39 Room Air 09/17/18 23:38 Room Air 09/17/18 21:00 Room Air Intake and Output 09/17/18 09/18/18 19:00 07:00 Intake Total 1805 ml 240 ml Balance 1805 ml 240 ml Intake Oral 1420 ml 240 ml IV Total 385 ml # Voids 4 3 Laboratory Tests 09/18/18 05:53: White Blood Count 8.1, Red Blood Count 3.87L, Hemoglobin 12.5L, Hematocrit 36.8L , Mean Corpuscular Volume 95, Mean Corpuscular Hemoglobin 32.3H, Mean Corpuscular Hemoglobin Concent 33.9, Red Cell Distribution Width 13.0, Platelet Count 167, Mean Platelet Volume 5.8L, Neutrophils (%) (Auto) 68.9, Lymphocytes ( %) (Auto) 15.4L, Monocytes (%) (Auto) 13.1H, Eosinophils (%) (Auto) 1.5, Basophils (%) (Auto) 1.1, Sodium Level 139, Potassium Level 3.3L, Chloride Level 107, Carbon Dioxide Level 19L, Anion Gap 13, Blood Urea Nitrogen 11, Creatinine 0.7, Estimat Glomerular Filtration Rate > 60, Glucose Level 87, Calcium Level 8.5 Height (Feet): 5 Height (Inches): 8.00 Weight (Pounds): 158 General Appearance: no apparent distress, alert EENT: PERRL/EOMI, pharynx normal Neck: non-tender, supple Cardiovascular: normal rate, regular rhythm, no gallop/murmur, no JVD Respiratory/Chest: chest wall non-tender, normal breath sounds, no respiratory distress Abdomen: non tender, soft, no mass Extremities: non-tender, normal inspection, no calf tenderness Edema: no edema noted Arm (L), no edema noted Arm (R), no edema noted Leg (L), no edema noted Leg (R), no edema noted Pedal (L), no edema noted Pedal (R), no edema noted Generalized Neurologic: alert Skin: warm/dry Lymphatic: normal anterior cervical (L), normal anterior cervical (R), normal posterior cervical (L), normal posterior cervical (R), normal submandibular (L) , normal submandibular (R), normal supraclavicular (L), normal supraclavicular ( R), normal axillary (L), normal axillary (R), normal inguinal (L), normal inguinal (R), normal other Orlin Garcia MD Sep 18, 2018 20:47
--- NOTE | 2018-09-18 22:12 | General Progress Note ---
Assessment/Plan Problem List: (1) Psychotic disorder ICD Codes: F29 - Unspecified psychosis not due to a substance or known physiological condition SNOMED: 42852931 (2) Development delay ICD Codes: R62.50 - Development delay SNOMED: 811985076 (3) Depression ICD Codes: F32.9 - Depression SNOMED: 00235112 Status: stable Assessment/Plan trazodone Topamax Risperdal Subjective Constitutional: Reports: malaise, weakness Neurologic/Psychiatric: Reports: anxiety, depressed, emotional problems Allergies: Coded Allergies: No Known Allergies (Unverified , 10/20/14) Objective Last 24 Hour Vital Signs Date Time Temp Pulse Resp B/P (MAP) Pulse Ox O2 Delivery O2 Flow Rate FiO2 09/18/18 20:09 74 20 97 Room Air 21 09/18/18 20:03 Room Air 21 09/18/18 20:03 73 20 97 Room Air 21 09/18/18 20:02 97 Room Air 09/18/18 20:00 98.2 80 18 112/70 (84) 95 09/18/18 16:00 98.0 76 18 120/81 (94) 98 09/18/18 14:56 75 20 97 Room Air 09/18/18 14:52 77 20 94 Room Air 09/18/18 12:00 97.9 81 18 121/81 (94) 95 09/18/18 11:17 81 20 97 Room Air 09/18/18 11:08 78 20 95 Room Air 09/18/18 09:00 Room Air 09/18/18 08:30 76 20 96 Room Air 09/18/18 08:25 79 20 94 Room Air 09/18/18 08:25 94 Room Air 09/18/18 08:25 Room Air 09/18/18 08:00 98.9 71 18 119/72 (88) 94 09/18/18 04:00 97.6 68 18 119/70 (86) 96 09/18/18 03:48 73 20 99 Room Air 21 09/18/18 03:38 72 20 98 Room Air 21 09/18/18 00:00 97.8 65 18 103/65 (78) 96 09/17/18 23:39 Room Air 21 09/17/18 23:38 Room Air 21 Intake and Output 09/17/18 09/18/18 19:00 07:00 Intake Total 1805 ml 240 ml Balance 1805 ml 240 ml Intake Oral 1420 ml 240 ml IV Total 385 ml # Voids 4 3 Laboratory Tests 09/18/18 05:53: White Blood Count 8.1, Red Blood Count 3.87L, Hemoglobin 12.5L, Hematocrit 36.8L , Mean Corpuscular Volume 95, Mean Corpuscular Hemoglobin 32.3H, Mean Corpuscular Hemoglobin Concent 33.9, Red Cell Distribution Width 13.0, Platelet Count 167, Mean Platelet Volume 5.8L, Neutrophils (%) (Auto) 68.9, Lymphocytes ( %) (Auto) 15.4L, Monocytes (%) (Auto) 13.1H, Eosinophils (%) (Auto) 1.5, Basophils (%) (Auto) 1.1, Sodium Level 139, Potassium Level 3.3L, Chloride Level 107, Carbon Dioxide Level 19L, Anion Gap 13, Blood Urea Nitrogen 11, Creatinine 0.7, Estimat Glomerular Filtration Rate > 60, Glucose Level 87, Calcium Level 8.5 Height (Feet): 5 Height (Inches): 8.00 Weight (Pounds): 158 General Appearance: WD/WN, alert, confused, agitated Lavonne Clifford MD Sep 18, 2018 22:12
[2018-09-19] VITALS: BP 130/77
[2018-09-19] MEDS: Albuterol/Ipratropium 3ml neb HHN SCH (02:45)
[2018-09-19 04:00] VITALS: BP 115/68
[2018-09-19] MEDS: metroNIDAZOLE 500mg tab ORAL SCH (05:26)
[2018-09-19 06:57] LABS: HEMOGLOBIN 12.7 G/DL (14.2-18.0); MEAN CORPUSCULAR VOLUME 95 FL (80-99); PLATELET COUNT 239 K/UL (150-450); RED BLOOD COUNT 3.99 M/UL (4.70-6.10); RED CELL DISTRIBUTION WIDTH 13.2 % (11.6-14.8); WHITE BLOOD COUNT 5.9 K/UL (4.8-10.8)
[2018-09-19 06:58] LABS: ALANINE AMINOTRANSFERASE 31 U/L (12-78); ALBUMIN 2.7 G/DL (3.4-5.0); ALBUMIN/GLOBULIN RATIO 0.6 (1.0-2.7); ALKALINE PHOSPHATASE 54 U/L (46-116); ANION GAP 11 mmol/L (5-15); ASPARTATE AMINO TRANSFERASE 32 U/L (15-37); BILIRUBIN,TOTAL 0.3 MG/DL (0.2-1.0); BLOOD UREA NITROGEN 11 mg/dL (7-18); CALCIUM 8.8 MG/DL (8.5-10.1); CARBON DIOXIDE 23 MMOL/L (21-32); CHLORIDE 106 MMOL/L (98-107); CREATININE 0.7 MG/DL (0.55-1.30); POTASSIUM 3.4 MMOL/L (3.5-5.1); SODIUM 140 MMOL/L (136-145)
--- NOTE | 2018-09-19 07:26 | NUR ---
HAND-OFF: Report given to SHAMIKA Villatoro.
--- NOTE | 2018-09-19 07:35 | NUR ---
NURSE NOTES: Received patient on bed, awake. Restraints in place. IV site intact and patent. Bed in low and locked position, call light in reach. No signs of respiratory distress or pain. Room board updated, will continue to monitor.
[2018-09-19 08:00] VITALS: BP 101/68
[2018-09-19] MEDS: Docusate 100mg cap ORAL SCH ×2 (08:50→18:14)
[2018-09-19] MEDS: Topiramate 100mg tab ORAL SCH ×2 (08:51→20:25)
[2018-09-19] MEDS: Magnesium Oxide 400mg tab ORAL SCH ×3 (08:51→18:14)
[2018-09-19] MEDS: Azithromycin 250mg tab ORAL SCH (08:51)
[2018-09-19] MEDS: Theophylline ER 100mg ORAL SCH ×2 (08:52→20:25)
[2018-09-19] MEDS: Heparin 5000 units/ml inj SUBQ SCH ×2 (08:53→20:26)
[2018-09-19] MEDS: cefTRIAXone 1 GM in D5W 55 ML IVPB SCH (10:24)
--- NOTE | 2018-09-19 11:25 | NUR ---
NURSE NOTES: IV site leaking. IV removed and site covered. Will attempt to start new IV access later.
--- NOTE | 2018-09-19 11:58 | Pulmonology Progress Note ---
Assessment/Plan Problems: (1) Right lower lobe pneumonia (2) Sepsis (3) Seizure disorder (4) Depression (5) Psychotic disorder (6) Development delay Assessment/Plan improving K supplement doing better titrate fio2 to sat of 92% send sputum again continue antibiotics chest PT incentive spirometry antitussives psychiatry evaluation. Subjective ROS Limited/Unobtainable: No Constitutional: Reports: no symptoms HEENT: Repors: no symptoms Respiratory: Reports: no symptoms Allergies: Coded Allergies: No Known Allergies (Unverified , 10/20/14) Objective Last 24 Hour Vital Signs Date Time Temp Pulse Resp B/P (MAP) Pulse Ox O2 Delivery O2 Flow Rate FiO2 09/19/18 09:00 Room Air 09/19/18 08:00 98.2 82 18 101/68 (79) 95 09/19/18 07:30 81 19 Room Air 21 09/19/18 07:30 Room Air 21 09/19/18 07:30 96 Room Air 21 09/19/18 04:00 97.3 76 18 115/68 (84) 97 09/19/18 02:44 Room Air 21 09/19/18 02:44 Room Air 21 09/19/18 00:00 97.6 74 18 130/77 (94) 91 09/18/18 23:51 77 20 97 Room Air 21 09/18/18 23:46 79 20 95 Room Air 21 09/18/18 21:00 Room Air 09/18/18 20:09 74 20 97 Room Air 21 09/18/18 20:03 Room Air 21 09/18/18 20:03 73 20 97 Room Air 21 09/18/18 20:02 97 Room Air 21 09/18/18 20:00 98.2 80 18 112/70 (84) 95 09/18/18 16:00 98.0 76 18 120/81 (94) 98 09/18/18 14:56 75 20 97 Room Air 21 09/18/18 14:52 77 20 94 Room Air 09/18/18 12:00 97.9 81 18 121/81 (94) 95 Intake and Output 09/18/18 09/19/18 18:59 06:59 Intake Total 110 ml 800 ml Balance 110 ml 800 ml IV Total 110 ml Other 800 ml # Voids 3 Objective General Appearance: WD/WN HEENT: normocephalic, anicteric Respiratory/Chest: chest wall non-tender, lungs clear Cardiovascular: normal peripheral pulses, normal rate Abdomen: normal bowel sounds, soft, non tender, no scars Extremities: no clubbing Skin: no rash Laboratory Tests 09/19/18 04:55: White Blood Count 5.9, Red Blood Count 3.99L, Hemoglobin 12.7L, Hematocrit 38.0L , Mean Corpuscular Volume 95, Mean Corpuscular Hemoglobin 31.9H, Mean Corpuscular Hemoglobin Concent 33.5, Red Cell Distribution Width 13.2, Platelet Count 239, Mean Platelet Volume 5.6L, Neutrophils (%) (Auto) , Lymphocytes (%) ( Auto) , Monocytes (%) (Auto) , Eosinophils (%) (Auto) , Basophils (%) (Auto) , Differential Total Cells Counted 100, Neutrophils % (Manual) 58, Lymphocytes % ( Manual) 23, Monocytes % (Manual) 15H, Eosinophils % (Manual) 4H, Basophils % ( Manual) 0, Band Neutrophils 0, Platelet Estimate Adequate, Platelet Morphology Normal, Red Blood Cell Morphology Normal, Sodium Level 140, Potassium Level 3.4L , Chloride Level 106, Carbon Dioxide Level 23, Anion Gap 11, Blood Urea Nitrogen 11, Creatinine 0.7, Estimat Glomerular Filtration Rate > 60, Glucose Level 74, Calcium Level 8.8, Total Bilirubin 0.3, Aspartate Amino Transf (AST/ SGOT) 32, Alanine Aminotransferase (ALT/SGPT) 31, Alkaline Phosphatase 54, Total Protein 7.6, Albumin 2.7L, Globulin 4.9, Albumin/Globulin Ratio 0.6L Current Medications Medications (Trade) Dose Ordered Sig/Adams Route PRN Reason Start Time Stop Time Status Last Admin Dose Admin Acetaminophen (Tylenol) 650 mg Q6H PRN RECTAL Mild Pain (Pain Scale 1-3) 09/15/18 16:00 10/14/18 15:59 Acetaminophen/ Hydrocodone Bitart ([place] 5/325) 1 tab Q6H PRN ORAL For Pain 09/15/18 15:00 09/21/18 14:59 09/17/18 21:49 Azithromycin (Zithromax) 250 mg DAILY ORAL 09/18/18 09:00 09/25/18 08:59 09/19/18 08:51 Calcium Carbonate (Tums) 500 mg Q3H PRN ORAL flatulence 09/15/18 15:30 10/14/18 00:29 Ceftriaxone Sodium 1 gm/ Dextrose 55 ml @ 110 mls/hr DAILY@1000 IVPB 09/16/18 10:00 09/23/18 09:59 09/19/18 10:24 Divalproex Sodium (Depakote) 250 mg EVERY 12 HOURS ORAL 09/15/18 21:00 10/14/18 08:59 09/19/18 08:51 Docusate Sodium (Colace) 100 mg TWICE A DAY ORAL 09/15/18 18:00 10/14/18 08:59 09/19/18 08:50 Escitalopram Oxalate (Lexapro) 20 mg DAILY ORAL 09/16/18 09:00 10/14/18 08:59 09/19/18 08:50 Heparin Sodium (Porcine) (Heparin 5000 units/ml) 5,000 units EVERY 12 HOURS SUBQ 09/15/18 21:00 10/14/18 08:59 09/19/18 08:53 Lorazepam (Ativan) 1 mg Q6H PRN ORAL For Anxiety 09/15/18 15:00 09/22/18 14:59 09/18/18 21:15 Magnesium Oxide (Mag-Ox 400mg) 400 mg THREE TIMES A DAY ORAL 09/15/18 18:00 10/14/18 08:59 09/19/18 08:51 Metronidazole (Flagyl) 500 mg EVERY 8 HOURS ORAL 09/17/18 22:00 09/24/18 21:59 09/19/18 05:26 Promethazine HCl/ Codeine (Phenergan with Codeine) 5 ml Q4H PRN ORAL For Cough 09/16/18 13:15 10/16/18 13:14 Risperidone (RisperDAL) 3 mg BID ORAL 09/15/18 18:00 10/14/18 08:59 09/19/18 08:51 Theophylline (Alfredito-Dur) 100 mg EVERY 12 HOURS ORAL 09/16/18 21:00 10/16/18 20:59 09/19/18 08:52 Topiramate (Topamax) 100 mg EVERY 12 HOURS ORAL 09/15/18 21:00 10/14/18 08:59 09/19/18 08:51 Jh Bates MD Sep 19, 2018 11:58
[2018-09-19 12:00] VITALS: BP 114/77
[2018-09-19] MEDS ORDERED: Potassium Chloride 40 MEQ in Sodium Chloride 550 ML IVPB ONE (12:00)
[2018-09-19] MEDS ORDERED: Sodium Chloride for KCL Premix X 4hrs IV SCH (13:00)
--- NOTE | 2018-09-19 13:06 | Infectious Diseases Prog Note ---
Assessment/Plan Assessment/Plan ASSESSMENT AND PLAN: 1. CAP, possible aspiration pna, fevers, hypoxia - change to oral augmentin x 3 days, discontinue iv rocephin, flagyl and azithromycin - chest x-ray improved, swallow evaluation ordered - monitor labs - legionella urine antigen and mycoplasma igm are negative, sc-nf - clinically better, fevers resolved 2. vre colonization and isolation 3. History of epilepsy and seizures. Avoid pro-seizure medications. 4. Constipation. 5. Depression. 6. Mental retardation. 7. Developmental delay. 8. Renal insufficiency. 9. Hypoxia. 10. Past medical history is noted. 11. No known drug allergies. 12. Social history is negative. 13. Family history is noncontributory. 14. MAR is noted. 15. Case was discussed with RN. 16. Case was discussed with Dr. Garcia. 17. Notes and records were noted. 18. Orders were entered. Subjective Constitutional: Denies: fever HEENT: Denies: congestion Respiratory: Denies: shortness of breath Cardiovascular: Denies: chest pain Gastrointestinal/Abdominal: Denies: nausea, vomiting, diarrhea Genitourinary: Denies: dysuria Neurologic: Denies: headache Psychiatric: Denies: depression Skin: Denies: rash Hematologic: Denies: bleeding Musculoskeletal: Denies: pain Allergies: Coded Allergies: No Known Allergies (Unverified , 10/20/14) Objective Vital Signs Last 24 Hour Vital Signs Date Time Temp Pulse Resp B/P (MAP) Pulse Ox O2 Delivery O2 Flow Rate FiO2 09/19/18 09:00 Room Air 09/19/18 08:00 98.2 82 18 101/68 (79) 95 09/19/18 07:30 81 19 Room Air 21 09/19/18 07:30 Room Air 21 09/19/18 07:30 96 Room Air 21 09/19/18 04:00 97.3 76 18 115/68 (84) 97 09/19/18 02:44 Room Air 21 09/19/18 02:44 Room Air 21 09/19/18 00:00 97.6 74 18 130/77 (94) 91 09/18/18 23:51 77 20 97 Room Air 21 09/18/18 23:46 79 20 95 Room Air 21 09/18/18 21:00 Room Air 09/18/18 20:09 74 20 97 Room Air 21 09/18/18 20:03 Room Air 21 09/18/18 20:03 73 20 97 Room Air 21 09/18/18 20:02 97 Room Air 21 09/18/18 20:00 98.2 80 18 112/70 (84) 95 09/18/18 16:00 98.0 76 18 120/81 (94) 98 09/18/18 14:56 75 20 97 Room Air 21 09/18/18 14:52 77 20 94 Room Air 21 Height (Feet): 5 Height (Inches): 8.00 Weight (Pounds): 158 General Appearance: no acute distress HEENT: normocephalic, atraumatic, anicteric, mucous membranes moist Respiratory/Chest: lungs clear, normal breath sounds, no respiratory distress, no accessory muscle use Cardiovascular: normal rate, regular rhythm, no gallop/murmur, no JVD Abdomen: normal bowel sounds, soft, non tender, no organomegaly, non distended Genitourinary: other - no pastrana Extremities: no cyanosis Skin: no rash 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 The left lung and pleural space are probably clear, equivocal parenchymal changes on the left previously demonstrated are no longer evident. The heart is borderline enlarged Impression: Persistent hazy infiltrate versus edema on the right, probably unchanged over 2 days Apparent improvement of previously demonstrated left-sided parenchymal disease 09/18/18 - chest x-ray - nad, report noted Microbiology Date/Time Source Procedure Growth Status 09/13/18 20:05 Blood Blood Culture - Final NO GROWTH AFTER 5 DAYS Complete 09/13/18 21:45 Nasal Nares Influenza Types A,B Antigen (NIKHIL) - Final Complete 09/13/18 20:30 Rectum - Final NO CARBAPENEM-RESISTANT ENTEROBACTERI... Complete sc - nf Laboratory Tests Test 09/19/18 04:55 White Blood Count 5.9 K/UL (4.8-10.8) Red Blood Count 3.99 M/UL (4.70-6.10) L Hemoglobin 12.7 G/DL (14.2-18.0) L Hematocrit 38.0 % (42.0-52.0) L Mean Corpuscular Volume 95 FL (80-99) Mean Corpuscular Hemoglobin 31.9 PG (27.0-31.0) H Mean Corpuscular Hemoglobin Concent 33.5 G/DL (32.0-36.0) Red Cell Distribution Width 13.2 % (11.6-14.8) Platelet Count 239 K/UL (150-450) Mean Platelet Volume 5.6 FL (6.5-10.1) L Neutrophils (%) (Auto) % (45.0-75.0) Lymphocytes (%) (Auto) % (20.0-45.0) Monocytes (%) (Auto) % (1.0-10.0) Eosinophils (%) (Auto) % (0.0-3.0) Basophils (%) (Auto) % (0.0-2.0) Differential Total Cells Counted 100 Neutrophils % (Manual) 58 % (45-75) Lymphocytes % (Manual) 23 % (20-45) Monocytes % (Manual) 15 % (1-10) H Eosinophils % (Manual) 4 % (0-3) H Basophils % (Manual) 0 % (0-2) Band Neutrophils 0 % (0-8) Platelet Estimate Adequate Platelet Morphology Normal Red Blood Cell Morphology Normal Sodium Level 140 MMOL/L (136-145) Potassium Level 3.4 MMOL/L (3.5-5.1) L Chloride Level 106 MMOL/L (98-107) Carbon Dioxide Level 23 MMOL/L (21-32) Anion Gap 11 mmol/L (5-15) Blood Urea Nitrogen 11 mg/dL (7-18) Creatinine 0.7 MG/DL (0.55-1.30) Estimat Glomerular Filtration Rate > 60 mL/min (>60) Glucose Level 74 MG/DL (74-106) Calcium Level 8.8 MG/DL (8.5-10.1) Total Bilirubin 0.3 MG/DL (0.2-1.0) Aspartate Amino Transf (AST/SGOT) 32 U/L (15-37) Alanine Aminotransferase (ALT/SGPT) 31 U/L (12-78) Alkaline Phosphatase 54 U/L (46-116) Total Protein 7.6 G/DL (6.4-8.2) Albumin 2.7 G/DL (3.4-5.0) L Globulin 4.9 g/dL Albumin/Globulin Ratio 0.6 (1.0-2.7) L Current Medications Medications (Trade) Dose Ordered Sig/Adams Route PRN Reason Start Time Stop Time Status Last Admin Dose Admin Acetaminophen (Tylenol) 650 mg Q6H PRN RECTAL Mild Pain (Pain Scale 1-3) 09/15/18 16:00 10/14/18 15:59 Acetaminophen/ Hydrocodone Bitart ([place] 5/325) 1 tab Q6H PRN ORAL For Pain 09/15/18 15:00 09/21/18 14:59 09/17/18 21:49 Azithromycin (Zithromax) 250 mg DAILY ORAL 09/18/18 09:00 09/25/18 08:59 09/19/18 08:51 Calcium Carbonate (Tums) 500 mg Q3H PRN ORAL flatulence 09/15/18 15:30 10/14/18 00:29 Ceftriaxone Sodium 1 gm/ Dextrose 55 ml @ 110 mls/hr DAILY@1000 IVPB 09/16/18 10:00 09/23/18 09:59 09/19/18 10:24 Divalproex Sodium (Depakote) 250 mg EVERY 12 HOURS ORAL 09/15/18 21:00 10/14/18 08:59 09/19/18 08:51 Docusate Sodium (Colace) 100 mg TWICE A DAY ORAL 09/15/18 18:00 10/14/18 08:59 09/19/18 08:50 Escitalopram Oxalate (Lexapro) 20 mg DAILY ORAL 09/16/18 09:00 10/14/18 08:59 09/19/18 08:50 Heparin Sodium (Porcine) (Heparin 5000 units/ml) 5,000 units EVERY 12 HOURS SUBQ 09/15/18 21:00 10/14/18 08:59 09/19/18 08:53 Lorazepam (Ativan) 1 mg Q6H PRN ORAL For Anxiety 09/15/18 15:00 09/22/18 14:59 09/18/18 21:15 Magnesium Oxide (Mag-Ox 400mg) 400 mg THREE TIMES A DAY ORAL 09/15/18 18:00 10/14/18 08:59 09/19/18 08:51 Metronidazole (Flagyl) 500 mg EVERY 8 HOURS ORAL 09/17/18 22:00 09/24/18 21:59 09/19/18 05:26 Potassium Chloride 100 ml @ 100 mls/hr Q1H IVPB 09/19/18 13:00 09/19/18 16:59 Promethazine HCl/ Codeine (Phenergan with Codeine) 5 ml Q4H PRN ORAL For Cough 09/16/18 13:15 10/16/18 13:14 Risperidone (RisperDAL) 3 mg BID ORAL 09/15/18 18:00 10/14/18 08:59 09/19/18 08:51 Sodium Chloride 400 ml @ 100 mls/hr Q4H IV 09/19/18 13:00 09/19/18 16:59 Theophylline (Alfredito-Dur) 100 mg EVERY 12 HOURS ORAL 09/16/18 21:00 10/16/18 20:59 09/19/18 08:52 Topiramate (Topamax) 100 mg EVERY 12 HOURS ORAL 09/15/18 21:00 10/14/18 08:59 09/19/18 08:51 Peyman Garcia MD Sep 19, 2018 13:06
--- NOTE | 2018-09-19 14:44 | NUR ---
CASE MANAGEMENT: REVIEW 09/19/2018 SI: PNEUMONIA T 97.7 HR 76 RR 18 B/P 114/77 SATS 96% ON RA K 3.4 IS: DEPAKOTE PO Q12H TOPAMAX PO Q12H JEYSON DUR PO Q12H AUGMENTIN PO Q12H RISPERDAL PO BID LEXAPRO PO QD KCL IV Q1H NS IV Q4H MAG OX PO QID : TO MED/SURG UNIT
--- NOTE | 2018-09-19 15:42 | Cardiac Electrophysiology PN ---
Assessment/Plan Assessment/Plan 1. Mild CHF with brain natriuretic peptide around 200. Clinically euvolemic and echo showed normal left ventricular systolic function. The primary reason for patient's shortness of breath is his pneumonia 2. Pneumonia, ceftriaxone and azithromycin changed to amoxicillin 3. Mental retardation. 4. History of seizure disorder, on Risperdal and Lexapro. 5. History of skin cancer. Subjective Subjective Nonverbal in restraints with no events Objective Last 24 Hour Vital Signs Date Time Temp Pulse Resp B/P (MAP) Pulse Ox O2 Delivery O2 Flow Rate FiO2 09/19/18 12:00 97.7 76 18 114/77 (89) 96 09/19/18 09:00 Room Air 09/19/18 08:00 98.2 82 18 101/68 (79) 95 09/19/18 07:30 81 19 Room Air 21 09/19/18 07:30 Room Air 21 09/19/18 07:30 96 Room Air 21 09/19/18 04:00 97.3 76 18 115/68 (84) 97 09/19/18 02:44 Room Air 21 09/19/18 02:44 Room Air 21 09/19/18 00:00 97.6 74 18 130/77 (94) 91 09/18/18 23:51 77 20 97 Room Air 21 09/18/18 23:46 79 20 95 Room Air 21 09/18/18 21:00 Room Air 09/18/18 20:09 74 20 97 Room Air 21 09/18/18 20:03 Room Air 21 09/18/18 20:03 73 20 97 Room Air 21 09/18/18 20:02 97 Room Air 09/18/18 20:00 98.2 80 18 112/70 (84) 95 09/18/18 16:00 98.0 76 18 120/81 (94) 98 Intake and Output 09/18/18 09/19/18 18:59 06:59 Intake Total 110 ml 800 ml Balance 110 ml 800 ml IV Total 110 ml Other 800 ml # Voids 3 Laboratory Tests Test 09/19/18 04:55 White Blood Count 5.9 K/UL (4.8-10.8) Red Blood Count 3.99 M/UL (4.70-6.10) L Hemoglobin 12.7 G/DL (14.2-18.0) L Hematocrit 38.0 % (42.0-52.0) L Mean Corpuscular Volume 95 FL (80-99) Mean Corpuscular Hemoglobin 31.9 PG (27.0-31.0) H Mean Corpuscular Hemoglobin Concent 33.5 G/DL (32.0-36.0) Red Cell Distribution Width 13.2 % (11.6-14.8) Platelet Count 239 K/UL (150-450) Mean Platelet Volume 5.6 FL (6.5-10.1) L Neutrophils (%) (Auto) % (45.0-75.0) Lymphocytes (%) (Auto) % (20.0-45.0) Monocytes (%) (Auto) % (1.0-10.0) Eosinophils (%) (Auto) % (0.0-3.0) Basophils (%) (Auto) % (0.0-2.0) Differential Total Cells Counted 100 Neutrophils % (Manual) 58 % (45-75) Lymphocytes % (Manual) 23 % (20-45) Monocytes % (Manual) 15 % (1-10) H Eosinophils % (Manual) 4 % (0-3) H Basophils % (Manual) 0 % (0-2) Band Neutrophils 0 % (0-8) Platelet Estimate Adequate Platelet Morphology Normal Red Blood Cell Morphology Normal Sodium Level 140 MMOL/L (136-145) Potassium Level 3.4 MMOL/L (3.5-5.1) L Chloride Level 106 MMOL/L (98-107) Carbon Dioxide Level 23 MMOL/L (21-32) Anion Gap 11 mmol/L (5-15) Blood Urea Nitrogen 11 mg/dL (7-18) Creatinine 0.7 MG/DL (0.55-1.30) Estimat Glomerular Filtration Rate > 60 mL/min (>60) Glucose Level 74 MG/DL (74-106) Calcium Level 8.8 MG/DL (8.5-10.1) Total Bilirubin 0.3 MG/DL (0.2-1.0) Aspartate Amino Transf (AST/SGOT) 32 U/L (15-37) Alanine Aminotransferase (ALT/SGPT) 31 U/L (12-78) Alkaline Phosphatase 54 U/L (46-116) Total Protein 7.6 G/DL (6.4-8.2) Albumin 2.7 G/DL (3.4-5.0) L Globulin 4.9 g/dL Albumin/Globulin Ratio 0.6 (1.0-2.7) L Objective HEAD AND NECK: No JVD. LUNGS: Coarse rhonchi CARDIOVASCULAR: Regular S1 and S2 with no gallop or murmur. ABDOMEN: Soft. EXTREMITIES: No edema. Sebas Momin MD Sep 19, 2018 15:42
--- NOTE | 2018-09-19 15:43 | General Progress Note ---
Assessment/Plan Assessment/Plan Assessment - Aspiration risk - Mental retardation/developmental delay - PNA - Agitation / restraints - Mild anemia Recommendations - careful supervised feeding per ST recs - elevate HOB - Abx - monitor for Si/Sx of aspiration - No call back from DPOA - will ask RECYCLE COORDINATOR for help Subjective Allergies: Coded Allergies: No Known Allergies (Unverified , 10/20/14) Subjective Above noted NAD confused Left VM for Irina Hernandez at [phone] to discuss management Objective Last 24 Hour Vital Signs Date Time Temp Pulse Resp B/P (MAP) Pulse Ox O2 Delivery O2 Flow Rate FiO2 09/19/18 12:00 97.7 76 18 114/77 (89) 96 09/19/18 09:00 Room Air 09/19/18 08:00 98.2 82 18 101/68 (79) 95 09/19/18 07:30 81 19 Room Air 21 09/19/18 07:30 Room Air 21 09/19/18 07:30 96 Room Air 21 09/19/18 04:00 97.3 76 18 115/68 (84) 97 09/19/18 02:44 Room Air 21 09/19/18 02:44 Room Air 21 09/19/18 00:00 97.6 74 18 130/77 (94) 91 09/18/18 23:51 77 20 97 Room Air 21 09/18/18 23:46 79 20 95 Room Air 21 09/18/18 21:00 Room Air 09/18/18 20:09 74 20 97 Room Air 21 09/18/18 20:03 Room Air 21 09/18/18 20:03 73 20 97 Room Air 21 09/18/18 20:02 97 Room Air 09/18/18 20:00 98.2 80 18 112/70 (84) 95 09/18/18 16:00 98.0 76 18 120/81 (94) 98 Intake and Output 09/18/18 09/19/18 18:59 06:59 Intake Total 110 ml 800 ml Balance 110 ml 800 ml IV Total 110 ml Other 800 ml # Voids 3 Laboratory Tests 09/19/18 04:55: White Blood Count 5.9, Red Blood Count 3.99L, Hemoglobin 12.7L, Hematocrit 38.0L , Mean Corpuscular Volume 95, Mean Corpuscular Hemoglobin 31.9H, Mean Corpuscular Hemoglobin Concent 33.5, Red Cell Distribution Width 13.2, Platelet Count 239, Mean Platelet Volume 5.6L, Neutrophils (%) (Auto) , Lymphocytes (%) ( Auto) , Monocytes (%) (Auto) , Eosinophils (%) (Auto) , Basophils (%) (Auto) , Differential Total Cells Counted 100, Neutrophils % (Manual) 58, Lymphocytes % ( Manual) 23, Monocytes % (Manual) 15H, Eosinophils % (Manual) 4H, Basophils % ( Manual) 0, Band Neutrophils 0, Platelet Estimate Adequate, Platelet Morphology Normal, Red Blood Cell Morphology Normal, Sodium Level 140, Potassium Level 3.4L , Chloride Level 106, Carbon Dioxide Level 23, Anion Gap 11, Blood Urea Nitrogen 11, Creatinine 0.7, Estimat Glomerular Filtration Rate > 60, Glucose Level 74, Calcium Level 8.8, Total Bilirubin 0.3, Aspartate Amino Transf (AST/ SGOT) 32, Alanine Aminotransferase (ALT/SGPT) 31, Alkaline Phosphatase 54, Total Protein 7.6, Albumin 2.7L, Globulin 4.9, Albumin/Globulin Ratio 0.6L Height (Feet): 5 Height (Inches): 8.00 Weight (Pounds): 158 Objective Thin WM NCAT poor dentition Neck supple CTA RR Abd soft Flat no edema Developmental delay Guy Anand MD Sep 19, 2018 15:43
[2018-09-19 16:00] VITALS: BP 135/83
--- NOTE | 2018-09-19 16:32 | NUR ---
NURSE NOTES: New IV started left forearm 22 gauge intact and patent.
--- NOTE | 2018-09-19 16:32 | NUR ---
NURSE NOTES: Patient removed IV site.
--- NOTE | 2018-09-19 16:46 | NUR ---
PT Note PT greta completed, tx initiated. Patient was able to ambulate with a FWW x 10 ft x 2. Required [id number] techniques for all tasks. Patient needs PT services to increase his muscle strength and balance to improve his functional mobility and gait. Addendum: 09/19/18 at 1647 by LUDA LEON PT Amended: Links added.
--- NOTE | 2018-09-19 19:22 | NUR ---
NURSE NOTES: Pt received asleep, bed in lowest position, restraints in place, no signs of pain or distress, no IV access but message left for Dr. Garcia, will continue to monitor.
--- NOTE | 2018-09-19 19:28 | NUR ---
HAND-OFF: Report given to RN Veena.
[2018-09-19 20:00] VITALS: BP 130/73
--- NOTE | 2018-09-19 20:03 | General Progress Note ---
Assessment/Plan Problem List: (1) Right lower lobe pneumonia ICD Codes: J18.1 - Lobar pneumonia, unspecified organism SNOMED: 224701749 Qualifiers: Qualified Codes: J18.1 - Lobar pneumonia, unspecified organism (2) Constipation ICD Codes: K59.00 - Constipation SNOMED: 32634344 (3) Depression ICD Codes: F32.9 - Depression SNOMED: 78012029 (4) Seizure disorder ICD Codes: G40.909 - Seizure disorder SNOMED: 611978435 (5) Mental retardation ICD Codes: F79 - Mental retardation SNOMED: 71685084 (6) Development delay ICD Codes: R62.50 - Development delay SNOMED: 436356619 (7) Renal insufficiency ICD Codes: N28.9 - Disorder of kidney and ureter, unspecified SNOMED: 559817190, 954905247 (8) Hypoxia ICD Codes: R09.02 - Hypoxemia SNOMED: 919649557, 058729925 Assessment/Plan Assessment/Plan Problems: (1) Right lower lobe pneumonia (2) Constipation (3) Depression (4) Seizure disorder (5) Mental retardation (6) Development delay (7) Renal insufficiency (8) Hypoxia (9) VRE positive (10) agitation Assessment/Plan plan: - admit to med/surg - Duoneb q 4 - oxygen 2 L nc - ID and cardiology consult - echo - repeat chest xray - IV Ceftriaxone and Azithromycin - VTE prophylaxis with Heparin sq bid - Tylenol Prn pain fever - Psychiatry consult for agitation - soft bilateral wrist restraints - supply chain design manager to assist with meals - pica precautions discussed with nurse - am labs fu cardiology recommendations ID consult appreciated - pulmonary consult - VRE isolation - speech swallow eval appreciated - dc restraints - IV antibiotics discontinued and on oral Augmentin for 3 more days - Gi consult appreciated will dc home in am discussed with nurse Subjective Date patient seen: Sep 19, 2018 Allergies: Coded Allergies: No Known Allergies (Unverified , 10/20/14) All Systems: reviewed and negative except above Subjective patient has clear chest xray and switched to oral Augmentin for 3 more days Objective Last 24 Hour Vital Signs Date Time Temp Pulse Resp B/P (MAP) Pulse Ox O2 Delivery O2 Flow Rate FiO2 09/19/18 16:00 98.0 73 20 135/83 (100) 98 09/19/18 12:00 97.7 76 18 114/77 (89) 96 09/19/18 09:00 Room Air 09/19/18 08:00 98.2 82 18 101/68 (79) 95 09/19/18 07:30 81 19 Room Air 21 09/19/18 07:30 Room Air 21 09/19/18 07:30 96 Room Air 21 09/19/18 04:00 97.3 76 18 115/68 (84) 97 09/19/18 02:44 Room Air 21 09/19/18 02:44 Room Air 21 09/19/18 00:00 97.6 74 18 130/77 (94) 91 09/18/18 23:51 77 20 97 Room Air 21 09/18/18 23:46 79 20 95 Room Air 21 09/18/18 21:00 Room Air 09/18/18 20:09 74 20 97 Room Air 09/18/18 20:03 Room Air 21 09/18/18 20:03 73 20 97 Room Air 09/18/18 20:02 97 Room Air 09/18/18 20:00 98.2 80 18 112/70 (84) 95 Intake and Output 09/18/18 09/19/18 19:00 07:00 Intake Total 110 ml 800 ml Balance 110 ml 800 ml IV Total 110 ml Other 800 ml # Voids 3 Laboratory Tests 09/19/18 04:55: White Blood Count 5.9, Red Blood Count 3.99L, Hemoglobin 12.7L, Hematocrit 38.0L , Mean Corpuscular Volume 95, Mean Corpuscular Hemoglobin 31.9H, Mean Corpuscular Hemoglobin Concent 33.5, Red Cell Distribution Width 13.2, Platelet Count 239, Mean Platelet Volume 5.6L, Neutrophils (%) (Auto) , Lymphocytes (%) ( Auto) , Monocytes (%) (Auto) , Eosinophils (%) (Auto) , Basophils (%) (Auto) , Differential Total Cells Counted 100, Neutrophils % (Manual) 58, Lymphocytes % ( Manual) 23, Monocytes % (Manual) 15H, Eosinophils % (Manual) 4H, Basophils % ( Manual) 0, Band Neutrophils 0, Platelet Estimate Adequate, Platelet Morphology Normal, Red Blood Cell Morphology Normal, Sodium Level 140, Potassium Level 3.4L , Chloride Level 106, Carbon Dioxide Level 23, Anion Gap 11, Blood Urea Nitrogen 11, Creatinine 0.7, Estimat Glomerular Filtration Rate > 60, Glucose Level 74, Calcium Level 8.8, Total Bilirubin 0.3, Aspartate Amino Transf (AST/ SGOT) 32, Alanine Aminotransferase (ALT/SGPT) 31, Alkaline Phosphatase 54, Total Protein 7.6, Albumin 2.7L, Globulin 4.9, Albumin/Globulin Ratio 0.6L Height (Feet): 5 Height (Inches): 8.00 Weight (Pounds): 158 General Appearance: no apparent distress, alert EENT: PERRL/EOMI, pharynx normal Neck: non-tender, supple Cardiovascular: normal rate, regular rhythm, no gallop/murmur, no JVD Respiratory/Chest: chest wall non-tender, normal breath sounds, no respiratory distress Abdomen: non tender, soft, no mass Extremities: non-tender, normal inspection, no calf tenderness Edema: no edema noted Arm (L), no edema noted Arm (R), no edema noted Leg (L), no edema noted Leg (R), no edema noted Pedal (L), no edema noted Pedal (R), no edema noted Generalized Neurologic: rvda master certified rv technician II-XII grossly normal, alert, oriented x 3, responsive Skin: warm/dry Lymphatic: normal anterior cervical (L), normal anterior cervical (R), normal posterior cervical (L), normal posterior cervical (R), normal submandibular (L) , normal submandibular (R), normal supraclavicular (L), normal supraclavicular ( R), normal axillary (L), normal axillary (R), normal inguinal (L), normal inguinal (R), normal other Orlin Garcia MD Sep 19, 2018 20:03
--- NOTE | 2018-09-19 20:05 | NUR ---
NURSE NOTES: Dr. Garcia aware of pt without IV access and no new order to insert, order for pt to be taken off restraints because he will be discharged back [facility], would like for morning shift nurse to call him for report and for pt to be picked up around 10 am or 10:30am. He called and left voicemail for Jia Haas. Addendum: 09/20/18 at 0350 by ADRYAN RAMIRES RN NURSE NOTES: Late entry discontinuing restraints order from the system.
[2018-09-19] MEDS: LORazepam 1mg tab ORAL PRN (20:23)
[2018-09-19] MEDS: Augmentin 875mg Tab ORAL SCH (20:24)
[2018-09-20] VITALS: BP 116/77
[2018-09-20 04:00] VITALS: BP 118/74
--- NOTE | 2018-09-20 06:42 | NUR ---
NURSE NOTES: Jia Haas, Welding Operator [facility] called and stated she will have the patient picked up around 12 noon. Requested to have prescription of Augmentin faxed to [facility]. Will inform Dr. Garcia of time of miner pick.
--- NOTE | 2018-09-20 07:13 | NUR ---
HAND-OFF: Report given to SHAMIKA Villatoro.
[2018-09-20 07:29] LABS: BASOPHILS % (AUTO) 1.2 % (0.0-2.0); EOSINOPHILS % (AUTO) 1.4 % (0.0-3.0); HEMATOCRIT 37.4 % (42.0-52.0); HEMOGLOBIN 12.5 G/DL (14.2-18.0); LYMPHOCYTES % (AUTO) 23.7 % (20.0-45.0); MEAN CORPUSCULAR VOLUME 95 FL (80-99); MONOCYTES % (AUTO) 15.8 % (1.0-10.0); PLATELET COUNT 269 K/UL (150-450); RED BLOOD COUNT 3.93 M/UL (4.70-6.10); RED CELL DISTRIBUTION WIDTH 12.9 % (11.6-14.8); WHITE BLOOD COUNT 6.2 K/UL (4.8-10.8)
[2018-09-20 07:30] LABS: ANION GAP 11 mmol/L (5-15); BLOOD UREA NITROGEN 12 mg/dL (7-18); CALCIUM 8.7 MG/DL (8.5-10.1); CARBON DIOXIDE 23 MMOL/L (21-32); CHLORIDE 105 MMOL/L (98-107); CREATININE 0.7 MG/DL (0.55-1.30); POTASSIUM 4.2 MMOL/L (3.5-5.1); SODIUM 139 MMOL/L (136-145)
--- NOTE | 2018-09-20 07:40 | NUR ---
NURSE NOTES: Received patient on bed, asleep. Restraints discontinued. No IV access. Bed in low and locked position, call light in reach. No signs of respiratory distress or pain. Room board updated, will continue to monitor.
[2018-09-20 08:00] VITALS: BP 131/74
[2018-09-20] MEDS: Topiramate 100mg tab ORAL SCH (08:24)
[2018-09-20] MEDS: Theophylline ER 100mg ORAL SCH (08:24)
[2018-09-20] MEDS: Augmentin 875mg Tab ORAL SCH (08:24)
[2018-09-20] MEDS: Docusate 100mg cap ORAL SCH (08:25)
[2018-09-20] MEDS: Magnesium Oxide 400mg tab ORAL SCH (08:25)
[2018-09-20] MEDS: Heparin 5000 units/ml inj SUBQ SCH (08:26)
--- NOTE | 2018-09-20 08:58 | NUR ---
NURSE NOTES: Spoke to MD Garcia on telephone who stated to continue home medications when discharged. Contacted Emely at [facility] an she said she would call back with the turkey picker time for the patient discharge. Charge nurse made aware.
--- NOTE | 2018-09-20 09:12 | NUR ---
NURSE NOTES: Spoke to Jia from [facility] who stated she would be here at 1200 hours to orange picking supervisor patient. Charge nurse made aware.
[2018-09-20 12:00] VITALS: BP 120/73
--- NOTE | 2018-09-20 12:32 | NUR ---
NURSE NOTES: Patient discharged. Patient belongings inventoried and sent with patient. Patient kept comfortable at all times and patient needs met. Patient departed with [facility] staff in private vehicle.
--- NOTE | 2018-09-20 13:08 | Pulmonology Progress Note ---
Assessment/Plan Problems: (1) Right lower lobe pneumonia (2) Sepsis (3) Seizure disorder (4) Depression (5) Psychotic disorder (6) Development delay Assessment/Plan improving K supplement doing better titrate fio2 to sat of 92% send sputum again continue antibiotics chest PT incentive spirometry antitussives psychiatry evaluation. Subjective ROS Limited/Unobtainable: No Constitutional: Reports: no symptoms HEENT: Repors: no symptoms Allergies: Coded Allergies: No Known Allergies (Unverified , 10/20/14) Objective Last 24 Hour Vital Signs Date Time Temp Pulse Resp B/P (MAP) Pulse Ox O2 Delivery O2 Flow Rate FiO2 09/20/18 12:00 98.2 75 16 120/73 (89) 96 09/20/18 09:00 Room Air 09/20/18 08:00 98.1 72 19 131/74 (93) 95 09/20/18 04:00 97.4 76 18 118/74 (89) 96 09/20/18 00:00 98.0 82 20 116/77 (90) 98 09/19/18 21:00 Room Air 09/19/18 20:00 97.8 73 20 130/73 (92) 96 09/19/18 16:00 98.0 73 20 135/83 (100) 98 Intake and Output 09/19/18 09/20/18 19:00 07:00 Intake Total 895 ml 240 ml Balance 895 ml 240 ml Intake Oral 840 ml 240 ml IV Total 55 ml # Voids 8 3 Objective General Appearance: WD/WN HEENT: normocephalic, anicteric Respiratory/Chest: chest wall non-tender, lungs clear Cardiovascular: normal peripheral pulses, normal rate Abdomen: normal bowel sounds, soft, non tender, no scars Extremities: no clubbing Skin: no rash Laboratory Tests 09/20/18 05:35: White Blood Count 6.2, Red Blood Count 3.93L, Hemoglobin 12.5L, Hematocrit 37.4L , Mean Corpuscular Volume 95, Mean Corpuscular Hemoglobin 31.9H, Mean Corpuscular Hemoglobin Concent 33.5, Red Cell Distribution Width 12.9, Platelet Count 269, Mean Platelet Volume 5.7L, Neutrophils (%) (Auto) 58.0, Lymphocytes ( %) (Auto) 23.7, Monocytes (%) (Auto) 15.8H, Eosinophils (%) (Auto) 1.4, Basophils (%) (Auto) 1.2, Sodium Level 139, Potassium Level 4.2, Chloride Level 105, Carbon Dioxide Level 23, Anion Gap 11, Blood Urea Nitrogen 12, Creatinine 0.7, Estimat Glomerular Filtration Rate > 60, Glucose Level 77, Calcium Level 8.7 Current Medications Medications (Trade) Dose Ordered Sig/Adams Route PRN Reason Start Time Stop Time Status Last Admin Dose Admin Acetaminophen (Tylenol) 650 mg Q6H PRN RECTAL Mild Pain (Pain Scale 1-3) 09/15/18 16:00 10/14/18 15:59 Acetaminophen/ Hydrocodone Bitart (Villanueva 5/325) 1 tab Q6H PRN ORAL For Pain 09/15/18 15:00 09/21/18 14:59 09/17/18 21:49 Amoxicillin/ Clavulanate Potassium (Augmentin) 875 mg EVERY 12 HOURS ORAL 09/19/18 21:00 09/22/18 09:01 09/20/18 08:24 Calcium Carbonate (Tums) 500 mg Q3H PRN ORAL flatulence 09/15/18 15:30 10/14/18 00:29 Divalproex Sodium (Depakote) 250 mg EVERY 12 HOURS ORAL 09/15/18 21:00 10/14/18 08:59 09/20/18 08:25 Docusate Sodium (Colace) 100 mg TWICE A DAY ORAL 09/15/18 18:00 10/14/18 08:59 09/20/18 08:25 Escitalopram Oxalate (Lexapro) 20 mg DAILY ORAL 09/16/18 09:00 10/14/18 08:59 09/20/18 08:25 Heparin Sodium (Porcine) (Heparin 5000 units/ml) 5,000 units EVERY 12 HOURS SUBQ 09/15/18 21:00 10/14/18 08:59 09/20/18 08:26 Lorazepam (Ativan) 1 mg Q6H PRN ORAL For Anxiety 09/15/18 15:00 09/22/18 14:59 09/19/18 20:23 Magnesium Oxide (Mag-Ox 400mg) 400 mg THREE TIMES A DAY ORAL 09/15/18 18:00 10/14/18 08:59 09/20/18 08:25 Promethazine HCl/ Codeine (Phenergan with Codeine) 5 ml Q4H PRN ORAL For Cough 09/16/18 13:15 10/16/18 13:14 Risperidone (RisperDAL) 3 mg BID ORAL 09/15/18 18:00 10/14/18 08:59 09/20/18 08:24 Theophylline (Alfredito-Dur) 100 mg EVERY 12 HOURS ORAL 09/16/18 21:00 10/16/18 20:59 09/20/18 08:24 Topiramate (Topamax) 100 mg EVERY 12 HOURS ORAL 09/15/18 21:00 10/14/18 08:59 09/20/18 08:24 Jh Bates MD Sep 20, 2018 13:08
--- NOTE | 2018-09-20 13:13 | General Progress Note ---
Assessment/Plan Assessment/Plan Assessment - Aspiration risk - Mental retardation/developmental delay - PNA - Agitation / restraints - Mild anemia Recommendations - careful supervised feeding per ST recs - elevate HOB - Abx - monitor for Si/Sx of aspiration - push po - d/c planning Subjective Allergies: Coded Allergies: No Known Allergies (Unverified , 10/20/14) Subjective Above noted NAD confused eating better per RN d/c planned for today Objective Last 24 Hour Vital Signs Date Time Temp Pulse Resp B/P (MAP) Pulse Ox O2 Delivery O2 Flow Rate FiO2 09/20/18 12:00 98.2 75 16 120/73 (89) 96 09/20/18 09:00 Room Air 09/20/18 08:00 98.1 72 19 131/74 (93) 95 09/20/18 04:00 97.4 76 18 118/74 (89) 96 09/20/18 00:00 98.0 82 20 116/77 (90) 98 09/19/18 21:00 Room Air 09/19/18 20:00 97.8 73 20 130/73 (92) 96 09/19/18 16:00 98.0 73 20 135/83 (100) 98 Intake and Output 09/19/18 09/20/18 18:59 06:59 Intake Total 895 ml 240 ml Balance 895 ml 240 ml Intake Oral 840 ml 240 ml IV Total 55 ml # Voids 8 3 Laboratory Tests 09/20/18 05:35: White Blood Count 6.2, Red Blood Count 3.93L, Hemoglobin 12.5L, Hematocrit 37.4L , Mean Corpuscular Volume 95, Mean Corpuscular Hemoglobin 31.9H, Mean Corpuscular Hemoglobin Concent 33.5, Red Cell Distribution Width 12.9, Platelet Count 269, Mean Platelet Volume 5.7L, Neutrophils (%) (Auto) 58.0, Lymphocytes ( %) (Auto) 23.7, Monocytes (%) (Auto) 15.8H, Eosinophils (%) (Auto) 1.4, Basophils (%) (Auto) 1.2, Sodium Level 139, Potassium Level 4.2, Chloride Level 105, Carbon Dioxide Level 23, Anion Gap 11, Blood Urea Nitrogen 12, Creatinine 0.7, Estimat Glomerular Filtration Rate > 60, Glucose Level 77, Calcium Level 8.7 Height (Feet): 5 Height (Inches): 8.00 Weight (Pounds): 158 Objective Thin WM NCAT poor dentition Neck supple CTA RR Abd soft Flat no edema Developmental delay Guy Anand MD Sep 20, 2018 13:13
--- NOTE | 2018-09-22 08:51 | Diagnostic Imaging Report ---
Indications: Reason For Exam: DYSPHAGIA Technique: Patient ingested multiple substances under the supervision of speech pathology. Video fluoroscopic recording performed. Total fluoroscopy time 87.2 seconds. Total dose area product 0.10731 mGycm2 Total number of images-5 Comparison: none Findings: Laryngeal penetration is seen with ingestion of thin liquid barium. No aspiration. Residual contrast is seen in the vallecula and piriform sinuses after swallowing. With ingestion of nectar thick liquid barium, no aspiration or penetration. There is some residual contrast in the vallecula and piriform sinuses, after swallowing. Ingestion of barium puree demonstrates early pooling in the hypopharynx, but no significant residual after swallowing. No aspiration or penetration. Early pooling of contrast is seen with ingestion of masticated solid, with some residual after swallowing. No aspiration or penetration Impression: Positive for penetration of thin liquid barium. No aspiration. Other findings as noted Please refer to speech pathology report for more detailed analysis
--- NOTE | 2018-09-22 09:49 | Discharge Summary ---
Discharge Summary Discharge Summary _ DATE OF ADMISSION: 09/13/2018 DATE OF DISCHARGE: 09/20/2018 DISCHARGED BY: Dr Garcia REASON FOR ADMISSION: 67 years old male with past medical history of severe mental retardation, seizure disorder, depression, skin cancer , presented to emergency department for evaluation. Patient had two days of cough, chest congestion, wheezing, and respiratory distress. Vital signs revealed fever 103.3 and low blood pressure 97/49. Laboratory workup revealed no leukocytosis , stable hemoglobin and hematocrit. Platelet count 145. Lactic acid 1.8. BUN 20, creatinine 1.4. Stable LFT. Troponin negative. Pro BNP 954. Valproic acid level therapeutic. Urinalysis revealed +1 leukocyte esterase and few bacteria, no pyuria. Chest x-ray demonstrated evidence of possible pneumonia. Patient was pancultured, started on empiric antibiotics, and was admitted for further management. CONSULTANTS: staff accountant Dr. Vaughn pulmonary Dr. Bates ID specialist GI specialist Dr. Fierro psychiatrist [facility]: Patient initially presented with a fever hypotension and hypoxia. Patient admitted and started on empiric antibiotic. Supplemental oxygen provided as needed to keep pulse oximetry above 92%. Pulmonary toilet provided. Peoplesoft Consultant followed. Follow-up chest x-ray revealed bilateral interstitial and airspace infiltrates versus edema right greater than left , developing since 09/13. Sputum culture was negative. Blood culture were negative . Rapid influenza screen test was negative. Per infectious disease specialist, patient had community acquired pneumonia, possible aspiration pneumonia. Legionella urine antigen and mycoplasma IgM were negative. DVT prophylaxis provided. Antitussive provided as needed. Bedside swallow evaluation revealed high silent aspiration risk. Diet provided as per speech therapist recommendation with one-to-one feeding and aspiration/reflux precautions. Patient subsequently undergone video swallow evaluation, which still revealed high silent aspiration risk. Speech therapist recommended continue diet for quality of life with strict aspiration/ reflux precautions and one-to-one feeding. Patient would benefit from future speech therapy strategies. Biofuels Research Scientist followed. Echocardiogram revealed preserved ejection fraction of 50-55% with mild left ventricular hypertrophy. No evidence of pericardial effusion. No evidence of wall motion abnormality. Right ventricular systolic pressure of 38, consistent with a mild pulmonary hypertension. 's Patient had mild CHF with mild elevation in brain natriuretic peptide. However, patient was clinically euvolemic, and primary reason for patient's shortness of breath was pneumonia. Seizure precautions maintained. Patient was continued on current anti-convulsive regimen. GI specialist followed. GI specialist recommended continue supervised feeding as per speech therapist recommendation with strict aspiration /reflux precaution and monitor for signs and symptoms of aspiration. Oral fluids were pushed.. Patient with evidence of mild anemia. Hemoglobin and hematocrit remained stable during the stay in the hospital, prior to discharge hemoglobin 12.5, hematocrit 27.4. Bowel regimen instituted. Renal parameters and electrolytes were closely monitored. Electrolytes/potassium corrected as needed. Nephrotoxins were avoided. Prior to discharge creatinine from 1.4 down to 0.7, BUN from 20 down to 12. Potassium 4.2. Psychiatrist followed. Per psychiatrist patient had developmental delay, psychotic disorder along with her depression. Psychiatric medication regimen was optimized as per psychiatrist recommendation. Patient was closely monitored and remained stable. Patient was follow-up with the chest x-ray. Last chest x-ray revealed no definite acute process. Fevers resolved, no leukocytosis. Infectious disease specialist recommended to discharge on oral antibiotics to complete the course at home. Patient clinically improved and was ready for transfer back to [facility]. FINAL DIAGNOSES: Sepsis Right lower lobe pneumonia Possible aspiration pneumonia Seizure disorder Mental retardation Acute kidney injury-resolved Hypokalemia-resolved High risk for silent aspiration History of skin cancer Psychotic disorder Developmental delay Mental retardation Constipation Depression DISCHARGE MEDICATIONS: See Medication Reconciliation list. DISCHARGE INSTRUCTIONS: Patient was discharged to [facility]. Follow-up with a primary care provider in 1 week. I have been assigned to dictate discharge summary for this account. I was not involved in the patient's management. Krystina Palacios NP Sep 22, 2018 09:49
== END 2018-09-20 12:32 | DRG 871 ==
LOC: EMR 20:26 → 2E 22:32 → EDBEDREQ 23:39 → 3E 09-15 14:45 → 4E 09-16 11:00
DX: A41.9 Sepsis, unspecified organism (principal); J18.9 Pneumonia, unspecified organism; J69.0 Pneumonitis due to inhalation of food and vomit; F72 Severe intellectual disabilities; N17.9 Acute kidney failure, unspecified; R09.02 Hypoxemia; E87.6 Hypokalemia; R45.1 Restlessness and agitation; F29 Unspecified psychosis not due to a substance or known physiological condition; F32.9 Major depressive disorder, single episode, unspecified; G40.909 Epilepsy, unspecified, not intractable, without status epilepticus; K59.00 Constipation, unspecified; I50.9 Heart failure, unspecified
CPT/HCPCS: 36415; 71045; 74230; 80048; 80053; 80164; 81003; 82164; 82550; 82962; 83605; 83690; 83735; 83880; 84100; 84439; 84443; 84484; 85007; 85025; 85610; 85730; 86710; 86738; 87040; 87070; 87081; 87205; 93005; 93306; 94640; 94664; 94760; 96365; 96367; 96368; 99285; J7620; J8499

== ENCOUNTER 2020-05-12 12:07 | Inpatient (IN) | payer MEDICARE, MEDICAID ==
[~2020-05-12] VITALS: Ht 182.9 cm; Wt 72.6 kg
[~2020-05-12 12:07] MED LIST changes: +MELATONIN 3 MG1 EAC1 PO; +MILK OF MA400 MG/51 ORAL; +NAMENDA10 MG ORAL; +OMEPRAZOLE20 M2 ORAL
[2020-05-12 14:45] VITALS: BP 99/62
[2020-05-12 15:08] LABS: BASOPHILS % (AUTO) 1.2 % (0.0-2.0); EOSINOPHILS % (AUTO) 1.8 % (0.0-3.0); HEMATOCRIT 37.6 % (42.0-52.0); HEMOGLOBIN 12.8 G/DL (14.2-18.0); LYMPHOCYTES % (AUTO) 29.9 % (20.0-45.0); MEAN CORPUSCULAR VOLUME 101 FL (80-99); MONOCYTES % (AUTO) 14.4 % (1.0-10.0); NEUTROPHILS % (AUTO) 52.7 % (45.0-75.0); PLATELET COUNT 306 K/UL (150-450); RED BLOOD COUNT 3.74 M/UL (4.70-6.10); RED CELL DISTRIBUTION WIDTH 13.2 % (11.6-14.8)
[2020-05-12 15:22] LABS: ANION GAP 7 mmol/L (5-15); BLOOD UREA NITROGEN 16 mg/dL (7-18); CALCIUM 8.6 MG/DL (8.5-10.1); CARBON DIOXIDE 28 MMOL/L (21-32); CHLORIDE 104 MMOL/L (98-107); CREATININE 0.9 MG/DL (0.55-1.30); POTASSIUM 3.4 MMOL/L (3.5-5.1); SODIUM 139 MMOL/L (136-145)
[2020-05-12 15:39] LABS: ALANINE AMINOTRANSFERASE 12 U/L (12-78); ALBUMIN/GLOBULIN RATIO 0.6 (1.0-2.7); ALKALINE PHOSPHATASE 79 U/L (46-116); ASPARTATE AMINO TRANSFERASE 21 U/L (15-37); BILIRUBIN,TOTAL 0.2 MG/DL (0.2-1.0); CREATINE KINASE 114 U/L (26-308)
--- NOTE | 2020-05-12 16:49 | Diagnostic Imaging Report ---
Indication: Shortness of breath Technique: One view of the chest Comparison: 09/18/2018 Findings: There is some atelectasis in the right perihilar region. Lungs and pleural spaces are otherwise clear the heart size is upper limits normal. No significant interim change Impression: No definite acute process Minimal right perihilar atelectasis
[2020-05-12] MEDS ORDERED: LORazepam Inj 2mg/ml 1ml IV ONE (17:00)
--- NOTE | 2020-05-12 18:41 | Emergency Room Report ---
History of Present Illness General Chief Complaint: General Complaint Source: Medical Record, EMS Present Illness HPI 69-year-old male presents for evaluation. Brought in by EMS from halfway facility. Was agitated and aggressive in facility. History of psych. On arrival patient appears agitated. Significant psychiatric of MR. Nonverbal at baseline. Unable provide any additional history at this time. No reported fevers or chills. No other aggravating relieving factors. No other associated symptoms Allergies: Coded Allergies: No Known Allergies (Unverified , 10/20/14) COVID-19 Screening Contact w/high risk pt: No Experienced COVID-19 symptoms?: No COVID-19 Testing performed CHILD CARE SPECIALIST: No Patient History Past Medical History: psych hx, other - MR Pertinent Family History: none Social History: Denies: smoking, alcohol use, drug use Immunizations: UTD Reviewed Nursing Documentation: PMH: Agreed; PSxH: Agreed Nursing Documentation-PMH Hx Cardiac Problems: No Hx Cancer: Yes - skin cancer Hx Gastrointestinal Problems: No History Of Psychiatric Problem: Yes - schizo 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 Hx Seizures: Yes Hx Epilepsy: Yes Hx Weakness: Yes Review of Systems All Other Systems: limited Physical Exam Vital Signs Date Time Temp Pulse Resp B/P (MAP) Pulse Ox O2 Delivery O2 Flow Rate FiO2 05/12/20 12:11 97.3 58 18 99/62 (74) 98 Room Air Sp02 EP Interpretation: reviewed, normal General Appearance: other - Nonverbal Head: normocephalic Eyes: bilateral eye normal inspection, bilateral eye PERRL ENT: hearing grossly normal, normal pharynx, no angioedema, normal voice Neck: full range of motion, supple/symm/no masses Respiratory: chest non-tender, lungs clear, normal breath sounds, speaking full sentences Cardiovascular #1: regular rate, rhythm, no edema Gastrointestinal: normal bowel sounds, non tender, soft, non-distended, no guarding, no rebound Rectal: deferred Genitourinary: no CVA tenderness Musculoskeletal: normal inspection Neurologic: other - Nonverbal Psychiatric: other - Nonverbal Skin: other - See nursing notes Lymphatic: normal inspection Medical Decision Making Diagnostic Impression: Primary Impression: Mental retardation Additional Impression: Development delay ER Course 69-year-old male presents with increased agitation from halfway facility. History of MR and psych Differentialdehydration, sepsis, delirium Placed on stretcher. After initial history and physical I ordered labs, IV fluids, EKG, chest x-ray Placed in soft restraints. Given Ativan for sedation. Labsno leukocytosis, hemoglobin/hematocrit stable, Electrolytes okay EKGsinus bradycardia no acute ischemic changes interpreted by me X-raymild atelectasis no focal consolidation Will require psychiatric evaluation during hospitalization. Admitted to Dr. Pascual Diagnosismental retardation, developmental delay Admitted to floor in serious condition Laboratory Tests Test 05/12/20 14:45 05/12/20 15:10 White Blood Count 5.0 K/UL (4.8-10.8) Red Blood Count 3.74 M/UL (4.70-6.10) L Hemoglobin 12.8 G/DL (14.2-18.0) L Hematocrit 37.6 % (42.0-52.0) L Mean Corpuscular Volume 101 FL (80-99) H Mean Corpuscular Hemoglobin 34.3 PG (27.0-31.0) H Mean Corpuscular Hemoglobin Concent 34.2 G/DL (32.0-36.0) Red Cell Distribution Width 13.2 % (11.6-14.8) Platelet Count 306 K/UL (150-450) Mean Platelet Volume 5.7 FL (6.5-10.1) L Neutrophils (%) (Auto) 52.7 % (45.0-75.0) Lymphocytes (%) (Auto) 29.9 % (20.0-45.0) Monocytes (%) (Auto) 14.4 % (1.0-10.0) H Eosinophils (%) (Auto) 1.8 % (0.0-3.0) Basophils (%) (Auto) 1.2 % (0.0-2.0) Prothrombin Time 10.8 SEC (9.30-11.50) Prothromb Time International Ratio 1.0 (0.9-1.1) Activated Partial Thromboplast Time 32 SEC (23-33) Sodium Level 139 MMOL/L (136-145) Potassium Level 3.4 MMOL/L (3.5-5.1) L Chloride Level 104 MMOL/L (98-107) Carbon Dioxide Level 28 MMOL/L (21-32) Anion Gap 7 mmol/L (5-15) Blood Urea Nitrogen 16 mg/dL (7-18) Creatinine 0.9 MG/DL (0.55-1.30) Estimat Glomerular Filtration Rate > 60 mL/min (>60) Glucose Level 88 MG/DL (74-106) Lactic Acid Level 0.70 mmol/L (0.4-2.0) Calcium Level 8.6 MG/DL (8.5-10.1) Magnesium Level 2.5 MG/DL (1.8-2.4) H Total Bilirubin 0.2 MG/DL (0.2-1.0) Aspartate Amino Transf (AST/SGOT) 21 U/L (15-37) Alanine Aminotransferase (ALT/SGPT) 12 U/L (12-78) Alkaline Phosphatase 79 U/L (46-116) Total Creatine Kinase 114 U/L (26-308) Troponin I 0.001 ng/mL (0.000-0.056) Total Protein 7.7 G/DL (6.4-8.2) Albumin 3.0 G/DL (3.4-5.0) L Globulin 4.7 g/dL Albumin/Globulin Ratio 0.6 (1.0-2.7) L Arterial Blood pH 7.345 (7.350-7.450) Arterial Blood Partial Pressure CO2 43.1 mmHg (35.0-45.0) Arterial Blood Partial Pressure O2 96.5 mmHg (75.0-100.0) Arterial Blood HCO3 23.0 mmol/L (22.0-26.0) Arterial Blood Oxygen Saturation 96.3 % (95-100) Arterial Blood Base Excess -2.6 (-2-2) L Brayan Test Positive EKG Diagnostic Results Troponin ordered: Yes Rate: normal Rhythm: NSR ST Segments: no acute changes ASA given to the pt in ED: No Rhythm Strip Diag. Results EP Interpretation: yes Rhythm: NSR, no PVC's, no ectopy Chest X-Ray Diagnostic Results Chest X-Ray Diagnostic Results : Chest X-Ray Ordered: Yes # of Views/Limited/Complete: 1 View Indication: Other EP Interpretation: Yes Interpretation: no effusion, no pneumothorax, other - Right perihilar atelectasis Impression: Other - Atelectasis Electronically Signed by: Electronically signed by Nickolas Carbajal MD Last Vital Signs Date Time Temp Pulse Resp B/P (MAP) Pulse Ox O2 Delivery O2 Flow Rate FiO2 05/12/20 17:15 58 16 106/63 98 05/12/20 14:45 Room Air 05/12/20 14:45 97.3 Status: improved Disposition: ADMITTED INPATIENT Condition: Serious Referrals: Juana Pascual M.D. (PCP) Nickolas Carbajal MD May 12, 2020 18:41
[2020-05-12] MEDS ORDERED: LORazepam Inj 2mg/ml 1ml IV PRN (18:45)
[2020-05-12] MEDS ORDERED: Haloperidol 5mg/ml Inj IM ONE (19:00)
[2020-05-12 19:18] LABS: APPEARANCE,URINE CLOUDY; BILIRUBIN, URINE NEGATIVE (NEGATIVE); COLOR,URINE PALE YELLOW; GLUCOSE, URINE (UA) NEGATIVE (NEGATIVE); KETONES,URINE NEGATIVE (NEGATIVE); LEUKOCYTE ESTERASE ,URINE 2+ (NEGATIVE); NITRITE,URINE NEGATIVE (NEGATIVE); PH,URINE 8 (4.5-8.0); PROTEIN,URINE 1+ (NEGATIVE); UROBILINOGEN,URINE NORMAL MG/DL (0.0-1.0)
[2020-05-12 20:58] VITALS: BP 127/65
[2020-05-12] MEDS: Heparin 5000 units/ml inj SUBQ SCH (22:00)
[2020-05-13 00:17] VITALS: BP 124/74
--- NOTE | 2020-05-13 01:44 | Consultation ---
DATE OF CONSULTATION: 05/12/2020 HISTORY OF PRESENT ILLNESS: The patient is a 69-year-old male who was seen by the nursing today in the emergency room. The patient was sent in via ambulance. The patient is well known to me and is nonverbal at baseline. The patient has been given psychotropic medications for anxiety and agitation. The patient is a 69-year-old male who has a history of schizophrenia and dementia with behavior disturbance, agitation, and poor memory. PAST PSYCHIATRIC HISTORY: Dementia, schizophrenia. PAST MEDICAL HISTORY: Significant for hypertension, seizure disorder, and developmental delay. ALLERGIES: No known drug allergies. SUBSTANCE ABUSE HISTORY: No known history of illicit drug use or alcohol. MEDICATIONS: Outside of the hospital are significant for Depakote, as well as Valium, memantine, risperidone, trazodone, and Topamax. MENTAL STATUS EXAMINATION: The patient is confused, disoriented. Mood is agitated. Affect is flat. Thought process, there is a paucity of thought content. Thought content, no suicidal or homicidal ideation. Cognition is impaired. Insight and judgment are impaired. ASSESSMENT: Kanaranzi I Dementia and psychotic disorder. Kanaranzi II Deferred. Kan[place] III Seizure disorder. Kanaranzi IV Low. Kanaranzi V 20. PLAN: 1. . 2. Risperidone 6 mg at bedtime. 3. Ativan p.r.n. 4. . Lavonne Clifford M.D. DR: YVON JOB#: [id number] CC:
[2020-05-13] MEDS: LORazepam Inj 2mg/ml 1ml IM PRN ×3 (03:34→22:58)
[2020-05-13 04:00] VITALS: BP 122/68
[2020-05-13 08:00] VITALS: BP 103/59
[2020-05-13 08:46] LABS: ANION GAP 7 mmol/L (5-15); BLOOD UREA NITROGEN 13 mg/dL (7-18); CALCIUM 8.3 MG/DL (8.5-10.1); CARBON DIOXIDE 26 MMOL/L (21-32); CHLORIDE 107 MMOL/L (98-107); CREATININE 0.9 MG/DL (0.55-1.30); POTASSIUM 3.6 MMOL/L (3.5-5.1); SODIUM 140 MMOL/L (136-145)
[2020-05-13] MEDS: Heparin 5000 units/ml inj SUBQ SCH ×2 (08:53→20:15)
[2020-05-13 09:01] LABS: BASOPHILS % (AUTO) 1.3 % (0.0-2.0); EOSINOPHILS % (AUTO) 1.2 % (0.0-3.0); HEMATOCRIT 37.7 % (42.0-52.0); HEMOGLOBIN 12.6 G/DL (14.2-18.0); LYMPHOCYTES % (AUTO) 22.1 % (20.0-45.0); MEAN CORPUSCULAR VOLUME 96 FL (80-99); MONOCYTES % (AUTO) 11.1 % (1.0-10.0); NEUTROPHILS % (AUTO) 64.3 % (45.0-75.0); PLATELET COUNT 293 K/UL (150-450); RED BLOOD COUNT 3.92 M/UL (4.70-6.10); RED CELL DISTRIBUTION WIDTH 13.5 % (11.6-14.8); WHITE BLOOD COUNT 4.7 K/UL (4.8-10.8)
[2020-05-13 12:00] VITALS: BP 107/72
--- NOTE | 2020-05-13 12:39 | History and Physical ---
History of Present Illness General Date patient seen: May 13, 2020 Reason for Hospitalization: General Complaint Present Illness HPI Agus White is a 69 yo M who is nonverbal at baseline with PMH of intellectual disability who was brought in from his care facility for psychiatric evaluation due to agitation. In ED, UA showed potential UTI. Patient is able to track and appears somewhat interactive to interviewer's speech, though unable to answer at all. He does not appear to be in pain. PMH: unable to verify due to patient's condition. Per chart review, appears to have developmental delay, psychiatric history, history of seizure PSH: unable to verify due to patient's condition. FH: unable to verify due to patient's condition. Soc Hx: unable to verify due to patient's condition. Allergies: Coded Allergies: No Known Allergies (Unverified , 10/20/14) COVID-19 Screening Contact w/high risk pt: No Recent Travel to affected area: No Experienced COVID-19 symptoms?: No Medication History Scheduled Benztropine Mesylate* (Benztropine Mesylate*), 2 MG ORAL BID, (Reported) Calcium Carbonate ([id number]), 500 MG PO DAILY, (Reported) Clotrimazole* (Lotrimin*), 1 APPLIC TOPIC PRN, (Reported) Diazepam* (Diazepam*), 10 MG ORAL PRN, (Reported) Divalproex Sodium* (Depakote*), 250 MG PO Q12HR, (Reported) Docusate Sodium* (Colace*), 100 MG ORAL TWICE A DAY, (Reported) Escitalopram Oxalate (Escitalopram Oxalate*), 20 MG ORAL DAILY, (Reported) Famotidine (Famotidine), 40 MG ORAL EVERY 12 HOURS, (Reported) Fluocinolone Acet (Fluocinolone Acetonide), 15 GM EXT PRN, (Reported) Linaclotide (Linzess), 145 MCG PO DAILY, (Reported) Magnesium Hydroxide (Milk of Magnesia), 30 ML ORAL DAILY, (Reported) Magnesium Hydroxide* (Milk Of Magnesia*), 30 ML ORAL DAILY, (Reported) Memantine Hcl* (Namenda*), 10 MG ORAL TWICE A DAY, (Reported) Omeprazole (Omeprazole), 20 MG ORAL DAILY, (Reported) Risperidone* (Risperdal*), 3 MG PO BID, (Reported) Topiramate* (Topamax*), 100 MG ORAL TWICE A DAY, (Reported) Trazodone* (Trazodone*), 150 MG ORAL BEDTIME, (Reported) Scheduled PRN Acetaminophen* (Acetaminophen*), 650 MG RECTAL Q6H PRN for For Pain, (Reported) Hydrocodone Bit/Acetaminophen 5-325* ([place] 5-325*), 1 TAB ORAL Q6H PRN for For Pain, (Reported) Miscellaneous Medications Melatonin/Pyridoxine HCl (B6) (Melatonin 3 mg Tablet), 1 EACH PO, (Reported) Patient History Limited by: medical condition - nonverbal at baseline Healthcare decision maker Resuscitation status Advanced Directive on File Family History Family History: Patient reports no known family medical history. Review of Systems ROS Narrative unable to verify due to patient's condition. 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 Musculoskeletal: no effusion Last 24 Hour Vital Signs Date Time Temp Pulse Resp B/P (MAP) Pulse Ox O2 Delivery O2 Flow Rate FiO2 05/13/20 08:52 71 18 103/59 98 05/13/20 04:19 74 18 129/74 97 05/13/20 04:00 98.7 74 20 122/68 (86) 94 05/13/20 03:34 74 18 129/74 97 05/13/20 00:17 98.3 74 18 124/74 (91) 98 05/12/20 22:41 Room Air 05/12/20 21:20 97.8 68 18 124/75 98 Room Air 05/12/20 20:58 97.6 66 18 127/65 98 Room Air 05/12/20 17:45 61 18 112/67 98 05/12/20 17:15 58 16 106/63 98 05/12/20 14:45 58 18 Room Air 05/12/20 14:45 97.3 18 99/62 98 Room Air Intake and Output 05/12/20 05/13/20 19:00 07:00 Intake Total 0 ml Balance 0 ml Intake Oral 0 ml # Voids 2 # Bowel Movements 2 Laboratory Tests Test 05/12/20 14:45 05/12/20 15:10 05/12/20 17:48 05/13/20 07:50 White Blood Count 5.0 K/UL (4.8-10.8) 4.7 K/UL (4.8-10.8) L Red Blood Count 3.74 M/UL (4.70-6.10) L 3.92 M/UL (4.70-6.10) L Hemoglobin 12.8 G/DL (14.2-18.0) L 12.6 G/DL (14.2-18.0) L Hematocrit 37.6 % (42.0-52.0) L 37.7 % (42.0-52.0) L Mean Corpuscular Volume 101 FL (80-99) H 96 FL (80-99) Mean Corpuscular Hemoglobin 34.3 PG (27.0-31.0) H 32.3 PG (27.0-31.0) H Mean Corpuscular Hemoglobin Concent 34.2 G/DL (32.0-36.0) 33.5 G/DL (32.0-36.0) Red Cell Distribution Width 13.2 % (11.6-14.8) 13.5 % (11.6-14.8) Platelet Count 306 K/UL (150-450) 293 K/UL (150-450) Mean Platelet Volume 5.7 FL (6.5-10.1) L 5.9 FL (6.5-10.1) L Neutrophils (%) (Auto) 52.7 % (45.0-75.0) 64.3 % (45.0-75.0) Lymphocytes (%) (Auto) 29.9 % (20.0-45.0) 22.1 % (20.0-45.0) Monocytes (%) (Auto) 14.4 % (1.0-10.0) H 11.1 % (1.0-10.0) H Eosinophils (%) (Auto) 1.8 % (0.0-3.0) 1.2 % (0.0-3.0) Basophils (%) (Auto) 1.2 % (0.0-2.0) 1.3 % (0.0-2.0) Prothrombin Time 10.8 SEC (9.30-11.50) Prothromb Time International Ratio 1.0 (0.9-1.1) Activated Partial Thromboplast Time 32 SEC (23-33) Sodium Level 139 MMOL/L (136-145) 140 MMOL/L (136-145) Potassium Level 3.4 MMOL/L (3.5-5.1) L 3.6 MMOL/L (3.5-5.1) Chloride Level 104 MMOL/L (98-107) 107 MMOL/L (98-107) Carbon Dioxide Level 28 MMOL/L (21-32) 26 MMOL/L (21-32) Anion Gap 7 mmol/L (5-15) 7 mmol/L (5-15) Blood Urea Nitrogen 16 mg/dL (7-18) 13 mg/dL (7-18) Creatinine 0.9 MG/DL (0.55-1.30) 0.9 MG/DL (0.55-1.30) Estimat Glomerular Filtration Rate > 60 mL/min (>60) > 60 mL/min (>60) Glucose Level 88 MG/DL (74-106) 96 MG/DL (74-106) Lactic Acid Level 0.70 mmol/L (0.4-2.0) Calcium Level 8.6 MG/DL (8.5-10.1) 8.3 MG/DL (8.5-10.1) L Magnesium Level 2.5 MG/DL (1.8-2.4) H Total Bilirubin 0.2 MG/DL (0.2-1.0) Aspartate Amino Transf (AST/SGOT) 21 U/L (15-37) Alanine Aminotransferase (ALT/SGPT) 12 U/L (12-78) Alkaline Phosphatase 79 U/L (46-116) Total Creatine Kinase 114 U/L (26-308) Troponin I 0.001 ng/mL (0.000-0.056) Total Protein 7.7 G/DL (6.4-8.2) Albumin 3.0 G/DL (3.4-5.0) L Globulin 4.7 g/dL Albumin/Globulin Ratio 0.6 (1.0-2.7) L Arterial Blood pH 7.345 (7.350-7.450) Arterial Blood Partial Pressure CO2 43.1 mmHg (35.0-45.0) Arterial Blood Partial Pressure O2 96.5 mmHg (75.0-100.0) Arterial Blood HCO3 23.0 mmol/L (22.0-26.0) Arterial Blood Oxygen Saturation 96.3 % (95-100) Arterial Blood Base Excess -2.6 (-2-2) L Brayan Test Positive Urine Color Pale yellow Urine Appearance Cloudy Urine pH 8 (4.5-8.0) Urine Specific [place] 1.010 (1.005-1.035) Urine Protein 1+ (NEGATIVE) H Urine Glucose (UA) Negative (NEGATIVE) Urine Ketones Negative (NEGATIVE) Urine Blood 2+ (NEGATIVE) H Urine Nitrite Negative (NEGATIVE) Urine Bilirubin Negative (NEGATIVE) Urine Urobilinogen Normal MG/DL (0.0-1.0) Urine Leukocyte Esterase 2+ (NEGATIVE) H Urine RBC 30-40 /HPF (0 - 0) H Urine WBC 60-80 /HPF (0 - 0) H Urine Squamous Epithelial Cells None /LPF (NONE/OCC) Urine Bacteria Many /HPF (NONE) H Microbiology Date/Time Source Procedure Growth Status 05/12/20 19:25 Nasal Nares - Final Complete 05/12/20 19:25 Nasal Nares - Final Complete Height (Feet): 6 Height (Inches): 0.00 Weight (Pounds): 160 Medications Current Medications Medications (Trade) Dose Ordered Sig/Adams Route PRN Reason Start Time Stop Time Status Last Admin Dose Admin Acetaminophen (Tylenol) 650 mg Q4H PRN ORAL Mild Pain (Pain Scale 1-3) 05/12/20 18:45 06/11/20 18:44 Dextrose (Dextrose 50%) 25 ml Q30M PRN IV Hypoglycemia 05/12/20 18:45 08/10/20 18:44 Dextrose (Dextrose 50%) 50 ml Q30M PRN IV Hypoglycemia 05/12/20 18:45 08/10/20 18:44 Divalproex Sodium (Depakote) 750 mg EVERY 12 HOURS ORAL 05/13/20 09:00 06/12/20 08:59 05/13/20 08:54 Heparin Sodium (Porcine) (Heparin 5000 units/ml) 5,000 units EVERY 12 HOURS SUBQ 05/12/20 22:00 06/26/20 21:59 05/13/20 08:53 Lorazepam (Ativan 2mg/ml 1ml) 1 mg Q4H PRN IM For Anxiety 05/12/20 23:45 05/19/20 23:44 05/13/20 08:52 Nitrofurantoin (Macrobid) 100 mg EVERY 12 HOURS ORAL 05/13/20 11:45 05/15/20 23:00 Risperidone (RisperDAL) 6 mg BEDTIME ORAL 05/13/20 21:00 06/27/20 20:59 Assessment/Plan Assessment/Plan: A: #Agitation - appears to be improved compared to initial time in ER #Intellectual disability #Developmental delay #UTI - though unable to assess symptoms, will treat since may be contributing to agitation #Hx of seizure P: - Psychiatry consult, Dr. Clifford, appreciate recs - Ativan, Depakote per Psychiatry - Macrobid x 3 days for UTI - Colace given remote history of severe constipation Code: Full GI: none DVT prophylaxis: Heparin 5000 units twice daily Dispo: Pending improving in agitation and psychiatry clearance, back to living facility after Time spent on this encounter was 72 minutes which included 40 minutes of counseling and care coordination. I discussed with the nurse at bedside. Time of note may not reflect time patient was seen. Russel Guzman M.D. May 13, 2020 12:39
[2020-05-13 16:00] VITALS: BP 131/79
[2020-05-13 20:00] VITALS: BP 136/60
[2020-05-13] MEDS ORDERED: Varibar Pudding 230ml MC PRN (21:30)
[2020-05-13] MEDS ORDERED: Varibar Honey 250ml MC PRN (21:30)
[2020-05-13] MEDS ORDERED: Varibar Thin Liquid powder 148gm MC PRN (21:30)
[2020-05-13] MEDS ORDERED: Varibar Nectar 240ml MC PRN (21:30)
[2020-05-14] VITALS: BP 124/73
[2020-05-14 04:00] VITALS: BP 120/61
[2020-05-14 07:32] LABS: BLOOD UREA NITROGEN 14 mg/dL (7-18); CALCIUM 8.2 MG/DL (8.5-10.1); CREATININE 0.7 MG/DL (0.55-1.30)
[2020-05-14 07:36] LABS: BASOPHILS % (AUTO) 0.8 % (0.0-2.0); EOSINOPHILS % (AUTO) 0.9 % (0.0-3.0); HEMATOCRIT 36.1 % (42.0-52.0); HEMOGLOBIN 12.4 G/DL (14.2-18.0); LYMPHOCYTES % (AUTO) 32.5 % (20.0-45.0); MEAN CORPUSCULAR VOLUME 95 FL (80-99); MONOCYTES % (AUTO) 6.7 % (1.0-10.0); NEUTROPHILS % (AUTO) 59.1 % (45.0-75.0); PLATELET COUNT 271 K/UL (150-450); RED BLOOD COUNT 3.79 M/UL (4.70-6.10); RED CELL DISTRIBUTION WIDTH 13.4 % (11.6-14.8); WHITE BLOOD COUNT 5.5 K/UL (4.8-10.8)
[2020-05-14 07:44] LABS: ANION GAP 9 mmol/L (5-15); CARBON DIOXIDE 24 MMOL/L (21-32); CHLORIDE 105 MMOL/L (98-107); POTASSIUM 3.4 MMOL/L (3.5-5.1); SODIUM 138 MMOL/L (136-145)
[2020-05-14 08:00] VITALS: BP 129/70
[2020-05-14] MEDS: Docusate 100mg cap ORAL SCH ×2 (08:37→17:14)
[2020-05-14] MEDS: Heparin 5000 units/ml inj SUBQ SCH ×2 (08:38→21:07)
[2020-05-14 12:00] VITALS: BP 122/67
[2020-05-14] MEDS ORDERED: MACROBID100 MG ORAL (12:38)
--- NOTE | 2020-05-14 12:40 | Consultation ---
History of Present Illness General Chief Complaint: General Complaint Present Illness HPI Agus White is a 69 yo M who is nonverbal at baseline with PMH of intellectual disability who was brought in from his care facility for psychiatric evaluation due to agitation. In ED, UA showed potential UTI. Patient is able to track and appears somewhat interactive to interviewer's speech, though unable to answer at all. He does not appear to be in pain. Allergies: Coded Allergies: No Known Allergies (Unverified , 10/20/14) Medication History Scheduled Benztropine Mesylate* (Benztropine Mesylate*), 2 MG ORAL BID, (Reported) Calcium Carbonate ([id number]), 500 MG PO DAILY, (Reported) Clotrimazole* (Lotrimin*), 1 APPLIC TOPIC PRN, (Reported) Diazepam* (Diazepam*), 10 MG ORAL PRN, (Reported) Divalproex Sodium* (Depakote*), 250 MG PO Q12HR, (Reported) Docusate Sodium* (Colace*), 100 MG ORAL TWICE A DAY, (Reported) Escitalopram Oxalate (Escitalopram Oxalate*), 20 MG ORAL DAILY, (Reported) Famotidine (Famotidine), 40 MG ORAL EVERY 12 HOURS, (Reported) Fluocinolone Acet (Fluocinolone Acetonide), 15 GM EXT PRN, (Reported) Linaclotide (Linzess), 145 MCG PO DAILY, (Reported) Magnesium Hydroxide (Milk of Magnesia), 30 ML ORAL DAILY, (Reported) Magnesium Hydroxide* (Milk Of Magnesia*), 30 ML ORAL DAILY, (Reported) Memantine Hcl* (Namenda*), 10 MG ORAL TWICE A DAY, (Reported) Nitrofurantoin Monohyd/M-Cryst (Nitrofurantoin [place]-Mcr 100 mg), 100 MG ORAL EVERY 12 HOURS Omeprazole (Omeprazole), 20 MG ORAL DAILY, (Reported) Risperidone* (Risperdal*), 3 MG PO BID, (Reported) Topiramate* (Topamax*), 100 MG ORAL TWICE A DAY, (Reported) Trazodone* (Trazodone*), 150 MG ORAL BEDTIME, (Reported) Scheduled PRN Acetaminophen* (Acetaminophen*), 650 MG RECTAL Q6H PRN for For Pain, (Reported) Hydrocodone Bit/Acetaminophen 5-325* ([place] 5-325*), 1 TAB ORAL Q6H PRN for For Pain, (Reported) Miscellaneous Medications Melatonin/Pyridoxine HCl (B6) (Melatonin 3 mg Tablet), 1 EACH PO, (Reported) Patient History Healthcare decision maker Resuscitation status Advanced Directive on File Physical Exam Last 24 Hour Vital Signs Date Time Temp Pulse Resp B/P (MAP) Pulse Ox O2 Delivery O2 Flow Rate FiO2 05/14/20 12:00 96.6 74 19 122/67 (85) 97 05/14/20 09:00 Room Air 05/14/20 08:00 97.8 67 17 129/70 (89) 99 05/14/20 04:00 97.2 58 16 120/61 (80) 99 05/14/20 00:00 96.6 78 19 124/73 (90) 94 05/13/20 23:28 78 19 124/73 94 05/13/20 22:58 74 20 136/60 98 05/13/20 21:00 Room Air 05/13/20 20:00 97.9 74 20 136/60 (85) 98 05/13/20 16:00 97.4 61 18 131/79 (96) 99 Intake and Output0 05/13/20 05/14/20 19:00 07:00 Intake Total 480 ml 360 ml Output Total 300 ml Balance 180 ml 360 ml Intake Oral 480 ml Other 360 ml Output Urine Total 300 ml # Voids 3 2 Laboratory Tests Test 05/14/20 05:50 White Blood Count 5.5 K/UL (4.8-10.8) Red Blood Count 3.79 M/UL (4.70-6.10) L Hemoglobin 12.4 G/DL (14.2-18.0) L Hematocrit 36.1 % (42.0-52.0) L Mean Corpuscular Volume 95 FL (80-99) Mean Corpuscular Hemoglobin 32.7 PG (27.0-31.0) H Mean Corpuscular Hemoglobin Concent 34.4 G/DL (32.0-36.0) Red Cell Distribution Width 13.4 % (11.6-14.8) Platelet Count 271 K/UL (150-450) Mean Platelet Volume 6.2 FL (6.5-10.1) L Neutrophils (%) (Auto) 59.1 % (45.0-75.0) Lymphocytes (%) (Auto) 32.5 % (20.0-45.0) Monocytes (%) (Auto) 6.7 % (1.0-10.0) Eosinophils (%) (Auto) 0.9 % (0.0-3.0) Basophils (%) (Auto) 0.8 % (0.0-2.0) Sodium Level 138 MMOL/L (136-145) Potassium Level 3.4 MMOL/L (3.5-5.1) L Chloride Level 105 MMOL/L (98-107) Carbon Dioxide Level 24 MMOL/L (21-32) Anion Gap 9 mmol/L (5-15) Blood Urea Nitrogen 14 mg/dL (7-18) Creatinine 0.7 MG/DL (0.55-1.30) Estimat Glomerular Filtration Rate > 60 mL/min (>60) Glucose Level 73 MG/DL (74-106) L Calcium Level 8.2 MG/DL (8.5-10.1) L Height (Feet): 6 Height (Inches): 0.00 Weight (Pounds): 160 Medications Current Medications Medications (Trade) Dose Ordered Sig/Adams Route PRN Reason Start Time Stop Time Status Last Admin Dose Admin Acetaminophen (Tylenol) 650 mg Q4H PRN ORAL Mild Pain (Pain Scale 1-3) 05/12/20 18:45 06/11/20 18:44 Barium Sulfate ([place] Honey) 250 ml NOW PRN RAD 05/13/20 21:30 05/16/20 21:26 Barium Sulfate (Varibar Conley) 240 ml NOW PRN RAD 05/13/20 21:30 05/16/20 21:26 Barium Sulfate (Var[place]ar Pudding) 230 ml NOW PRN RAD 05/13/20 21:30 05/16/20 21:26 Barium Sulfate ([place]ar Thin Liquid powder) 148 gm NOW PRN MC RAD 05/13/20 21:30 05/16/20 21:26 Dextrose (Dextrose 50%) 25 ml Q30M PRN IV Hypoglycemia 05/12/20 18:45 08/10/20 18:44 Dextrose (Dextrose 50%) 50 ml Q30M PRN IV Hypoglycemia 05/12/20 18:45 08/10/20 18:44 Divalproex Sodium (Depakote) 750 mg EVERY 12 HOURS ORAL 05/13/20 09:00 06/12/20 08:59 05/14/20 08:37 Docusate Sodium (Colace) 100 mg TWICE A DAY ORAL 05/14/20 09:00 06/13/20 08:59 05/14/20 08:37 Heparin Sodium (Porcine) (Heparin 5000 units/ml) 5,000 units EVERY 12 HOURS SUBQ 05/12/20 22:00 06/26/20 21:59 05/14/20 08:38 Lorazepam (Ativan 2mg/ml 1ml) 1 mg Q4H PRN IM For Anxiety 05/12/20 23:45 05/19/20 23:44 05/13/20 22:58 Nitrofurantoin (Macrobid) 100 mg EVERY 12 HOURS ORAL 05/13/20 11:45 05/15/20 23:00 05/14/20 08:37 Risperidone (RisperDAL) 6 mg BEDTIME ORAL 05/13/20 21:00 06/27/20 20:59 05/13/20 20:14 Assessment/Plan Diagnosis [place] I: #Hypokalemia #Agitation - appears to be improved compared to initial time in ER #Intellectual disability #Developmental delay #UTI - though unable to assess symptoms, will treat since may be contributing to agitation #Hx of seizure P: - replete K - Psychiatry consult, Dr. Clifford, appreciate recs - Ativan, Depakote per Psychiatry - Macrobid x 3 days for UTI - Colace given remote history of severe constipation Juana Pascual M.D. May 14, 2020 12:40
--- NOTE | 2020-05-14 12:41 | Discharge Instructions ---
Discharge Instructions Discharge Instructions Follow up with: primary care physician and psychiatry within 7 days Call MD/Return to Hospital if: symptoms worsen or fail to improve Activity: resume normal activities Special Instructions Continue Macrobid to finish course through 05/15 evening for treatment of UTI. Follow up with Psychiatry Dr. Clifford and primary care physician within 7 days. For Congestive Heart Failure Reminder Report to your physician any weight gain of 5 pounds or more in one week. Russel Guzman M.D. May 14, 2020 12:41
--- NOTE | 2020-05-14 12:49 | Discharge Summary ---
Discharge Summary Hospital Course Date of Admission May 12, 2020 at 14:51 Date of Discharge May 15, 2020 Admitting Diagnosis acute encephalopathy Reason for Hospitalization: Agitation, UTI HPI Agus White is a 69 year old male who was admitted on May 12, 2020 at 14:51 for Acute Encephalopathy Agus White is a 69 yo M who is nonverbal at baseline with PMH of intellectual disability who was brought in from his care facility for psychiatric evaluation due to agitation. In ED, UA showed potential UTI. Patient is able to track and appears somewhat interactive to interviewer's speech, though unable to answer at all. He does not appear to be in pain. Consultations Psychiatry, Dr. Clifford Hospital Course Patient was admitted for agitation. Treatment for UTI started based on UA concerning for infection though unable to assess symptoms. Patient's agitation improved and he remains calm and without apparent distress. He will be discharged back to his living facility. #Agitation - Resolved #Intellectual disability #Developmental delay #UTI - though unable to assess symptoms, will treat since may be contributing to agitation #Hx of seizure - Psychiatry consult, Dr. Clifford, appreciate recs - Continue meds per Psychiatry - Ativan, Depakote per Psychiatry - Macrobid x 3 days for UTI - Colace given remote history of severe constipation Time spent on this discharge was 32 minutes which included 21 minutes of counseling and care coordination, psychiatry consult discussion regarding agitation, surgery consult discussion regarding left hadn splint, medication regimen, and antibiotic regimen for UTI. I discussed with the nurse at bedside. Time of note may not reflect time patient was seen. Discharge Medications New Medications: Nitrofurantoin Monohyd/M-Cryst (Nitrofurantoin [place]-Mcr 100 mg) 100 Mg Capsule 100 MG ORAL EVERY 12 HOURS for 1 Day, #2 CAP Continued Medications: Acetaminophen* (Acetaminophen*) 650 Mg Supp.rect 650 MG RECTAL Q6H PRN for For Pain, TAB 0 Refills Benztropine Mesylate* (Benztropine Mesylate*) 2 Mg Tablet 2 MG ORAL BID, TAB Calcium Carbonate ([id number]) 500 Mg Tablet 500 MG PO DAILY, TAB Clotrimazole* (Lotrimin*) 15 Gm Cream..g. 1 APPLIC TOPIC PRN, GM Diazepam* (Diazepam*) 10 Mg Tablet 10 MG ORAL PRN, TAB 0 Refills Divalproex Sodium* (Depakote*) 250 Mg Tablet.dr 250 MG PO Q12HR, TAB Docusate Sodium* (Colace*) 100 Mg Capsule 100 MG ORAL TWICE A DAY, CAP Escitalopram Oxalate (Escitalopram Oxalate*) 20 Mg Tablet 20 MG ORAL DAILY, #30 TAB 0 Refills Famotidine (Famotidine) 40 Mg Tablet 40 MG ORAL EVERY 12 HOURS, #60 TAB 0 Refills Fluocinolone Acet (Fluocinolone Acetonide) 15 Gm Cr 15 GM EXT PRN, GM Hydrocodone Bit/Acetaminophen 5-325* ([place] 5-325*) 1 Each Tablet 1 TAB ORAL Q6H PRN for For Pain, #10 TAB 0 Refills Linaclotide (Linzess) 145 Mcg Capsule 145 MCG PO DAILY, CAP Magnesium Hydroxide (Milk of Magnesia) 30 Ml Susp 30 ML ORAL DAILY Melatonin/Pyridoxine HCl (B6) (Melatonin 3 mg Tablet) 1 Each Tablet 1 EACH PO, TAB Memantine Hcl* (Namenda*) 10 Mg Tablet 10 MG ORAL TWICE A DAY, TAB Omeprazole (Omeprazole) 20 Mg Capsule.dr 20 MG ORAL DAILY, CAP Risperidone* (Risperdal*) 1 Mg Tablet 3 MG PO BID, TAB Topiramate* (Topamax*) 100 Mg Tablet 100 MG ORAL TWICE A DAY, #60 TAB 0 Refills Trazodone* (Trazodone*) 150 Mg Tablet 150 MG ORAL BEDTIME, TAB Discharge Condition Upon Discharge: improving Discharge Vital Signs Last Vital Signs Date Time Temp Pulse Resp B/P (MAP) Pulse Ox O2 Delivery O2 Flow Rate FiO2 05/14/20 12:00 96.6 74 19 122/67 (85) 97 05/14/20 09:00 Room Air Exam on day of discharge General Appearance: WD/WN, no apparent distress, other - nonverbal HEENT: normocephalic, atraumatic, PERRL, EOMI Neck: non-tender, supple, normal inspection Respiratory/Chest: chest wall non-tender, lungs clear, normal breath sounds, no respiratory distress Cardiovascular/Chest: normal rate, regular rhythm Abdomen: non tender, soft Extremities: normal range of motion, normal inspection, no edema Skin Exam: normal pigmentation, warm/dry 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 May 14, 2020 12:49
--- NOTE | 2020-05-14 14:53 | Consultation ---
History of Present Illness General Date patient seen: May 14, 2020 Reason for Hospitalization: General Complaint Present Illness HPI This is a 69-year-old male currently admitted to medical service for care and management who on admission had a left arm splint which just prior to discharge identified to be fairly loose therefore surgery was called to eval and assist with care. Patient seen, patient examined chart reviewed. Patient minimally verbal and unable to provide significant history. Does not seem uncomfortable otherwise stable. He is somewhat participates in the examination. He is identified to have some edema in his left arm and hand with some bruising. Not significantly tender upon palpation. Pulses okay. Likely had a fall or sprain recently treated with splints. Allergies: Coded Allergies: No Known Allergies (Unverified , 10/20/14) COVID-19 Screening Contact w/high risk pt: No Recent Travel to affected area: No Experienced COVID-19 symptoms?: No Medication History Scheduled Benztropine Mesylate* (Benztropine Mesylate*), 2 MG ORAL BID, (Reported) Calcium Carbonate ([id number]), 500 MG PO DAILY, (Reported) Clotrimazole* (Lotrimin*), 1 APPLIC TOPIC PRN, (Reported) Diazepam* (Diazepam*), 10 MG ORAL PRN, (Reported) Divalproex Sodium* (Depakote*), 250 MG PO Q12HR, (Reported) Docusate Sodium* (Colace*), 100 MG ORAL TWICE A DAY, (Reported) Escitalopram Oxalate (Escitalopram Oxalate*), 20 MG ORAL DAILY, (Reported) Famotidine (Famotidine), 40 MG ORAL EVERY 12 HOURS, (Reported) Fluocinolone Acet (Fluocinolone Acetonide), 15 GM EXT PRN, (Reported) Linaclotide (Linzess), 145 MCG PO DAILY, (Reported) Magnesium Hydroxide (Milk of Magnesia), 30 ML ORAL DAILY, (Reported) Magnesium Hydroxide* (Milk Of Magnesia*), 30 ML ORAL DAILY, (Reported) Memantine Hcl* (Namenda*), 10 MG ORAL TWICE A DAY, (Reported) Nitrofurantoin Monohyd/M-Cryst (Nitrofurantoin [place]-Mcr 100 mg), 100 MG ORAL EVERY 12 HOURS Omeprazole (Omeprazole), 20 MG ORAL DAILY, (Reported) Risperidone* (Risperdal*), 3 MG PO BID, (Reported) Topiramate* (Topamax*), 100 MG ORAL TWICE A DAY, (Reported) Trazodone* (Trazodone*), 150 MG ORAL BEDTIME, (Reported) Scheduled PRN Acetaminophen* (Acetaminophen*), 650 MG RECTAL Q6H PRN for For Pain, (Reported) Hydrocodone Bit/Acetaminophen 5-325* ([place] 5-325*), 1 TAB ORAL Q6H PRN for For Pain, (Reported) Miscellaneous Medications Melatonin/Pyridoxine HCl (B6) (Melatonin 3 mg Tablet), 1 EACH PO, (Reported) Patient History Limited by: medical condition History Provided By: Medical Record, PMD Healthcare decision maker Resuscitation status Advanced Directive on File Past Medical/Surgical History Past Medical/Surgical History: (1) Constipation (2) Depression (3) Seizure disorder (4) Development delay (5) Psychotic disorder (6) Sepsis (7) Agitation (8) UTI (urinary tract infection) (9) Mental retardation Family History Family History: Patient reports no known family medical history. Review of Systems Review of Symptoms General ROS: no weight loss or fever Psychological ROS: no depression or mood changes, no memory loss Ophthalmic ROS: no visual changes or eye irritation ENT ROS: no nasal congestion, hearing loss, dizziness Allergy and Immunology ROS: no allergic symptoms or urticaria Hematological and Lymphatic ROS: no swollen glands, unusual bleeding or bruising Endocrine ROS: no polyuria, polydipsia, weight changes, temperature intolerance Respiratory ROS: no cough, shortness of breath, or wheezing Cardiovascular ROS: no chest pain or dyspnea on exertion Gastrointestinal ROS: denies abdominal pain, bright red blood in stool. Musculoskeletal ROS: no myalgias or arthralgias Neurological ROS: no TIA or stroke symptoms Dermatological ROS: no new or changing skin lesions, rashes or pruritis Limited given medical condition Physical Exam Physical Exam General appearance: alert, cooperative, no distress, appears stated age Head: Normocephalic, without obvious abnormality, atraumatic Eyes: conjunctivae/corneas clear. PERRL, EOM's intact. Fundi benign Throat: Lips, mucosa, and tongue normal. Teeth and gums normal Neck: supple, symmetrical, trachea midline, no adenopathy, thyroid: not enlarged, symmetric, no tenderness/mass/nodules, no carotid bruit and no JVD Lungs: clear to auscultation bilaterally Heart: regular rate and rhythm, S1, S2 normal, no murmur, click, rub or gallop Abdomen: soft, non-tender. Bowel sounds normal. No masses, no organomegaly Extremities: extremities left arm with mild edema. No signs of infection. Prior bruising resolving. Pulses okay. Pulses: 2+ and symmetric Skin: Skin color, texture, turgor normal. No rashes or lesions Neurologic: Grossly normal Last 24 Hour Vital Signs Date Time Temp Pulse Resp B/P (MAP) Pulse Ox O2 Delivery O2 Flow Rate FiO2 05/14/20 12:00 96.6 74 19 122/67 (85) 97 05/14/20 09:00 Room Air 05/14/20 08:00 97.8 67 17 129/70 (89) 99 05/14/20 04:00 97.2 58 16 120/61 (80) 99 05/14/20 00:00 96.6 78 19 124/73 (90) 94 05/13/20 23:28 78 19 124/73 94 05/13/20 22:58 74 20 136/60 98 05/13/20 21:00 Room Air 05/13/20 20:00 97.9 74 20 136/60 (85) 98 05/13/20 16:00 97.4 61 18 131/79 (96) 99 Intake and Output 05/13/20 05/14/20 19:00 07:00 Intake Total 480 ml 360 ml Output Total 300 ml Balance 180 ml 360 ml Intake Oral 480 ml Other 360 ml Output Urine Total 300 ml # Voids 3 2 Laboratory Tests Test 05/14/20 05:50 White Blood Count 5.5 K/UL (4.8-10.8) Red Blood Count 3.79 M/UL (4.70-6.10) L Hemoglobin 12.4 G/DL (14.2-18.0) L Hematocrit 36.1 % (42.0-52.0) L Mean Corpuscular Volume 95 FL (80-99) Mean Corpuscular Hemoglobin 32.7 PG (27.0-31.0) H Mean Corpuscular Hemoglobin Concent 34.4 G/DL (32.0-36.0) Red Cell Distribution Width 13.4 % (11.6-14.8) Platelet Count 271 K/UL (150-450) Mean Platelet Volume 6.2 FL (6.5-10.1) L Neutrophils (%) (Auto) 59.1 % (45.0-75.0) Lymphocytes (%) (Auto) 32.5 % (20.0-45.0) Monocytes (%) (Auto) 6.7 % (1.0-10.0) Eosinophils (%) (Auto) 0.9 % (0.0-3.0) Basophils (%) (Auto) 0.8 % (0.0-2.0) Sodium Level 138 MMOL/L (136-145) Potassium Level 3.4 MMOL/L (3.5-5.1) L Chloride Level 105 MMOL/L (98-107) Carbon Dioxide Level 24 MMOL/L (21-32) Anion Gap 9 mmol/L (5-15) Blood Urea Nitrogen 14 mg/dL (7-18) Creatinine 0.7 MG/DL (0.55-1.30) Estimat Glomerular Filtration Rate > 60 mL/min (>60) Glucose Level 73 MG/DL (74-106) L Calcium Level 8.2 MG/DL (8.5-10.1) L Height (Feet): 6 Height (Inches): 0.00 Weight (Pounds): 160 Medications Current Medications Medications (Trade) Dose Ordered Sig/Adams Route PRN Reason Start Time Stop Time Status Last Admin Dose Admin Acetaminophen (Tylenol) 650 mg Q4H PRN ORAL Mild Pain (Pain Scale 1-3) 05/12/20 18:45 06/11/20 18:44 Barium Sulfate (Varibar Honey) 250 ml NOW PRN MC RAD 05/13/20 21:30 05/16/20 21:26 Barium Sulfate (Varibar [place]) 240 ml NOW PRN MC RAD 05/13/20 21:30 05/16/20 21:26 Barium Sulfate (Varibar Pudding) 230 ml NOW PRN MC RAD 05/13/20 21:30 05/16/20 21:26 Barium Sulfate (Varibar Thin Liquid powder) 148 gm NOW PRN MC RAD 05/13/20 21:30 05/16/20 21:26 Dextrose (Dextrose 50%) 25 ml Q30M PRN IV Hypoglycemia 05/12/20 18:45 08/10/20 18:44 Dextrose (Dextrose 50%) 50 ml Q30M PRN IV Hypoglycemia 05/12/20 18:45 08/10/20 18:44 Divalproex Sodium (Depakote) 750 mg EVERY 12 HOURS ORAL 05/13/20 09:00 06/12/20 08:59 05/14/20 08:37 Docusate Sodium (Colace) 100 mg TWICE A DAY ORAL 05/14/20 09:00 06/13/20 08:59 05/14/20 08:37 Heparin Sodium (Porcine) (Heparin 5000 units/ml) 5,000 units EVERY 12 HOURS SUBQ 05/12/20 22:00 06/26/20 21:59 05/14/20 08:38 Lorazepam (Ativan 2mg/ml 1ml) 1 mg Q4H PRN IM For Anxiety 05/12/20 23:45 05/19/20 23:44 05/13/20 22:58 Nitrofurantoin (Macrobid) 100 mg EVERY 12 HOURS ORAL 05/13/20 11:45 05/15/20 23:00 05/14/20 08:37 Potassium Chloride 100 ml @ 100 mls/hr Q1H IVPB 05/14/20 13:00 05/14/20 14:59 Potassium Chloride (K-Dur) 40 meq ONCE ORAL 05/14/20 13:00 05/14/20 15:00 05/14/20 13:10 Risperidone (RisperDAL) 6 mg BEDTIME ORAL 05/13/20 21:00 06/27/20 20:59 05/13/20 20:14 Assessment/Plan Problem List: (1) Development delay ICD Codes: R62.50 - Development delay SNOMED: 336065003 (2) Agitation ICD Codes: R45.1 - Restlessness and agitation SNOMED: 926772641 (3) UTI (urinary tract infection) ICD Codes: N39.0 - Urinary tract infection, site not specified SNOMED: 75547637 (4) Mental retardation ICD Codes: F79 - Mental retardation SNOMED: 40381229 (5) Constipation ICD Codes: K59.00 - Constipation SNOMED: 23168531 (6) Depression ICD Codes: F32.9 - Depression SNOMED: 34586473 (7) Psychotic disorder ICD Codes: F29 - Unspecified psychosis not due to a substance or known physiological condition SNOMED: 69669368 (8) Seizure disorder ICD Codes: G40.909 - Seizure disorder SNOMED: 767575313 (9) Sepsis ICD Codes: A41.9 - Sepsis, unspecified organism SNOMED: 50649280 (10) Edema of left upper arm Assessment & Plan: Patient identified to have left lower extremity edema and resolving bruising. Likely had a sprain or fall recently treated with a splint. The splint dressing was mildly dirty and loose. Patient has been biting on the dressing as per nursing staff. All dressings were removed. Splint was removed. The hand was evaluated range of motion identified no tenderness on bony palpations edema and bruising seem to be resolving. No deformity noted. Hand was cleaned and the splint was replaced with paddings. Splint was rewrapped. Stable and appropriate. Outpatient follow-up with Ortho or hand. Thank you let me participate in patient's care okay to discharge ICD Codes: R60.0 - Localized edema SNOMED: 371827273 Adilson Tony May 14, 2020 14:53
[2020-05-14 16:00] VITALS: BP 137/87
--- NOTE | 2020-05-14 16:41 | General Progress Note ---
Subjective Date patient seen: May 14, 2020 ROS Limited/Unobtainable: Yes - patient nonverbal Allergies: Coded Allergies: No Known Allergies (Unverified , 10/20/14) Subjective Interval events: no acute events overnight Today, patient resting in bed, appears comfortable, smiling. No apparent distress or pain or discomfort noted. Objective Last 24 Hour Vital Signs Date Time Temp Pulse Resp B/P (MAP) Pulse Ox O2 Delivery O2 Flow Rate FiO2 05/14/20 16:00 98.6 101 18 137/87 (104) 98 05/14/20 12:00 96.6 74 19 122/67 (85) 97 05/14/20 09:00 Room Air 05/14/20 08:00 97.8 67 17 129/70 (89) 99 05/14/20 04:00 97.2 58 16 120/61 (80) 99 05/14/20 00:00 96.6 78 19 124/73 (90) 94 05/13/20 23:28 78 19 124/73 94 05/13/20 22:58 74 20 136/60 98 05/13/20 21:00 Room Air 05/13/20 20:00 97.9 74 20 136/60 (85) 98 Intake and Output 05/13/20 05/14/20 19:00 07:00 Intake Total 480 ml 360 ml Output Total 300 ml Balance 180 ml 360 ml Intake Oral 480 ml Other 360 ml Output Urine Total 300 ml # Voids 3 2 Laboratory Tests 05/14/20 05:50: White Blood Count 5.5, Red Blood Count 3.79L, Hemoglobin 12.4L, Hematocrit 36.1L , Mean Corpuscular Volume 95, Mean Corpuscular Hemoglobin 32.7H, Mean Corpuscular Hemoglobin Concent 34.4, Red Cell Distribution Width 13.4, Platelet Count 271, Mean Platelet Volume 6.2L, Neutrophils (%) (Auto) 59.1, Lymphocytes (%) (Auto) 32.5, Monocytes (%) (Auto) 6.7, Eosinophils (%) (Auto) 0.9, Basophils (%) (Auto) 0.8, Sodium Level 138, Potassium Level 3.4L, Chloride Level 105, Carbon Dioxide Level 24, Anion Gap 9, Blood Urea Nitrogen 14, Creatinine 0.7, Estimat Glomerular Filtration Rate > 60, Glucose Level 73L, Calcium Level 8.2L Height (Feet): 6 Height (Inches): 0.00 Weight (Pounds): 160 General Appearance: WD/WN, no apparent distress EENT: normal ENT inspection Neck: non-tender, normal alignment, normal inspection Cardiovascular: normal rate, regular rhythm Respiratory/Chest: chest wall non-tender, lungs clear, normal breath sounds, no respiratory distress, no accessory muscle use Abdomen: non tender, soft, no organomegaly Extremities: normal range of motion, non-tender, other - Left hand/wrist in splint, mild bruising noted 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 Clifford, appreciate recs, clear for discharge - Surgery consult, Dr. Tony, appreciate recs, clear for discharge - Needs outpatient Orthopedic evaluation - Continue meds per Psychiatry - Steven Depakote per Psychiatry - Macrobid x 3 days for UTI - Colace given remote history of severe constipation Code: Full Dispo: ready for discharge back to SNF today if bed available. Time spent on this encounter was 37 minutes which included 22 minutes of counseling and care coordination, psychiatry consult discussion regarding agitation, medication regimen, and antibiotic regimen for UTI. I discussed with the nurse at bedside. Time of note may not reflect time patient was seen. Russel Guzman M.D. May 14, 2020 16:41
[2020-05-14 20:00] VITALS: BP 115/63
--- NOTE | 2020-05-14 23:41 | Psychiatric Progress Note ---
Psychiatry Progress Note Psychiatry Progress Note Subjective 69-year-old male who was seen by the nursing today in the emergency room. The patient was sent in via ambulance. The patient is well known to me and is nonverbal at baseline. The patient has been given psychotropic medications for anxiety and agitation. The patient is a 69-year-old male who has a history of schizophrenia and dementia with behavior disturbance, agitation, and poor memory. PAST PSYCHIATRIC HISTORY: Dementia, schizophrenia. PAST MEDICAL HISTORY: Significant for hypertension, seizure disorder, and developmental delay. ALLERGIES: No known drug allergies. SUBSTANCE ABUSE HISTORY: No known history of illicit drug use or alcohol. MEDICATIONS: Outside of the hospital are significant for Depakote, as well as Valium, memantine, risperidone, trazodone, and Topamax. MENTAL STATUS EXAMINATION: The patient is confused, disoriented. Mood is agitated. Affect is flat. Thought process, there is a paucity of thought content. Thought content, no suicidal or homicidal ideation. Cognition is impaired. Insight and judgment are impaired. ASSESSMENT: [place] I Dementia and psychotic disorder. [place] II Deferred. [place] III Seizure disorder. [place] IV Low. [place] V 20. PLAN: 1. Risperidone 6 mg at bedtime. 3. Ativan p.r.n. Medications Current Medications Medications (Trade) Dose Ordered Sig/Adams Route PRN Reason Start Time Stop Time Status Last Admin Dose Admin Acetaminophen (Tylenol) 650 mg Q4H PRN ORAL Mild Pain (Pain Scale 1-3) 05/12/20 18:45 06/11/20 18:44 Barium Sulfate (Varibar Honey) 250 ml NOW PRN MC RAD 05/13/20 21:30 05/16/20 21:26 Barium Sulfate (Varibar [place]) 240 ml NOW PRN MC RAD 05/13/20 21:30 05/16/20 21:26 Barium Sulfate (Varibar Pudding) 230 ml NOW PRN MC RAD 05/13/20 21:30 05/16/20 21:26 Barium Sulfate (Varibar Thin Liquid powder) 148 gm NOW PRN MC RAD 05/13/20 21:30 05/16/20 21:26 Dextrose (Dextrose 50%) 25 ml Q30M PRN IV Hypoglycemia 05/12/20 18:45 08/10/20 18:44 Dextrose (Dextrose 50%) 50 ml Q30M PRN IV Hypoglycemia 05/12/20 18:45 08/10/20 18:44 Divalproex Sodium (Depakote) 750 mg EVERY 12 HOURS ORAL 05/13/20 09:00 06/12/20 08:59 05/14/20 21:06 Docusate Sodium (Colace) 100 mg TWICE A DAY ORAL 05/14/20 09:00 06/13/20 08:59 05/14/20 17:14 Heparin Sodium (Porcine) (Heparin 5000 units/ml) 5,000 units EVERY 12 HOURS SUBQ 05/12/20 22:00 06/26/20 21:59 05/14/20 21:07 Lorazepam (Ativan 2mg/ml 1ml) 1 mg Q4H PRN IM For Anxiety 05/12/20 23:45 05/19/20 23:44 05/13/20 22:58 Nitrofurantoin (Macrobid) 100 mg EVERY 12 HOURS ORAL 05/13/20 11:45 05/15/20 23:00 05/14/20 21:06 Risperidone (RisperDAL) 6 mg BEDTIME ORAL 05/13/20 21:00 06/27/20 20:59 05/14/20 21:06 Allergies: Coded Allergies: No Known Allergies (Unverified , 10/20/14) Objective Data Height (Feet): 6 Height (Inches): 0.00 Weight (Pounds): 160 General Appearance: WD/WN, no apparent distress Lavonne Clifford MD May 14, 2020 23:41
[2020-05-15] VITALS: BP 124/74
[2020-05-15 04:00] VITALS: BP 114/80
[2020-05-15 07:16] LABS: ANION GAP 8 mmol/L (5-15); BLOOD UREA NITROGEN 12 mg/dL (7-18); CALCIUM 8.2 MG/DL (8.5-10.1); CARBON DIOXIDE 23 MMOL/L (21-32); CHLORIDE 105 MMOL/L (98-107); CREATININE 0.8 MG/DL (0.55-1.30); POTASSIUM 4.2 MMOL/L (3.5-5.1); SODIUM 136 MMOL/L (136-145)
[2020-05-15 07:39] LABS: BASOPHILS % (AUTO) 0.7 % (0.0-2.0); EOSINOPHILS % (AUTO) 1.2 % (0.0-3.0); HEMATOCRIT 35.2 % (42.0-52.0); LYMPHOCYTES % (AUTO) 33.4 % (20.0-45.0); MEAN CORPUSCULAR VOLUME 95 FL (80-99); MONOCYTES % (AUTO) 8.9 % (1.0-10.0); NEUTROPHILS % (AUTO) 55.8 % (45.0-75.0); PLATELET COUNT 271 K/UL (150-450); RED CELL DISTRIBUTION WIDTH 13.4 % (11.6-14.8); WHITE BLOOD COUNT 5.8 K/UL (4.8-10.8)
[2020-05-15] MEDS: Docusate 100mg cap ORAL SCH (08:10)
[2020-05-15] MEDS: Heparin 5000 units/ml inj SUBQ SCH (08:11)
[2020-05-15 08:30] VITALS: BP 111/73
[2020-05-15] MEDS ORDERED: MACROBID100 MG ORAL (10:33)
[2020-05-15 11:58] VITALS: BP 117/83
--- NOTE | 2020-05-15 13:22 | Surgery Progress Note ---
Surgery Progress Note Subjective Symptoms: improved, tolerating diet, passing flatus, BM Objective Last 24 Hour Vital Signs Date Time Temp Pulse Resp B/P (MAP) Pulse Ox O2 Delivery O2 Flow Rate FiO2 05/15/20 11:58 97.3 92 18 117/83 (94) 96 05/15/20 08:30 97.2 89 19 111/73 (86) 96 05/15/20 08:15 Room Air 05/15/20 04:00 98.4 81 20 114/80 (91) 96 05/15/20 00:00 98.8 80 18 124/74 (91) 97 05/14/20 21:00 Room Air 05/14/20 20:00 98.6 75 18 115/63 (80) 98 05/14/20 16:00 98.6 101 18 137/87 (104) 98 I&O Intake and Output 05/14/20 05/15/20 19:00 07:00 Intake Total 800 ml Balance 800 ml Intake Oral 800 ml # Voids 3 Dressing: dry Wound: clean Cardiovascular: RSR Respiratory: clear Abdomen: soft, non-tender, present bowel sounds, non-distended Extremities: edema, no tenderness, no cyanosis, pulses Laboratory Tests Test 05/15/20 05:45 White Blood Count 5.8 K/UL (4.8-10.8) Red Blood Count 3.70 M/UL (4.70-6.10) L Hemoglobin 12.0 G/DL (14.2-18.0) L Hematocrit 35.2 % (42.0-52.0) L Mean Corpuscular Volume 95 FL (80-99) Mean Corpuscular Hemoglobin 32.4 PG (27.0-31.0) H Mean Corpuscular Hemoglobin Concent 34.1 G/DL (32.0-36.0) Red Cell Distribution Width 13.4 % (11.6-14.8) Platelet Count 271 K/UL (150-450) Mean Platelet Volume 5.9 FL (6.5-10.1) L Neutrophils (%) (Auto) 55.8 % (45.0-75.0) Lymphocytes (%) (Auto) 33.4 % (20.0-45.0) Monocytes (%) (Auto) 8.9 % (1.0-10.0) Eosinophils (%) (Auto) 1.2 % (0.0-3.0) Basophils (%) (Auto) 0.7 % (0.0-2.0) Sodium Level 136 MMOL/L (136-145) Potassium Level 4.2 MMOL/L (3.5-5.1) Chloride Level 105 MMOL/L (98-107) Carbon Dioxide Level 23 MMOL/L (21-32) Anion Gap 8 mmol/L (5-15) Blood Urea Nitrogen 12 mg/dL (7-18) Creatinine 0.8 MG/DL (0.55-1.30) Estimat Glomerular Filtration Rate > 60 mL/min (>60) Glucose Level 76 MG/DL (74-106) Calcium Level 8.2 MG/DL (8.5-10.1) L Plan Problems: (1) Development delay (2) Agitation (3) UTI (urinary tract infection) (4) Mental retardation (5) Constipation (6) Depression (7) Psychotic disorder (8) Seizure disorder (9) Sepsis (10) Edema of left upper arm Assessment & Plan: Patient identified to have left lower extremity edema and resolving bruising. Likely had a sprain or fall recently treated with a splint. The splint dressing was mildly dirty and loose. Patient has been biting on the dressing as per nursing staff. All dressings were removed. Splint was removed. The hand was evaluated range of motion identified no tenderness on bony palp ations edema and bruising seem to be resolving. No deformity noted. Hand was cleaned and the splint was replaced with paddings. Splint was rewrapped. Stable and appropriate. Outpatient follow-up with Ortho or hand. Thank you let me participate in patient's care okay to discharge Adilson Tony May 15, 2020 13:22
--- NOTE | 2020-05-15 13:37 | Nephrology Progress Note ---
Assessment/Plan Plan #Hypokalemia #Agitation - appears to be improved compared to initial time in ER #Intellectual disability #Developmental delay #UTI - though unable to assess symptoms, will treat since may be contributing to agitation #Hx of seizure P: - replete K - Psychiatry consult, Dr. Clifford, appreciate recs - Autumn [place] per Psychiatry - Macrobid x 3 days for UTI - Colace given remote history of severe constipation Subjective ROS Limited/Unobtainable: No Constitutional: Reports: weakness HEENT: Denies: no symptoms, eye pain, blurred vision, tearing, double vision, ear pain, ear discharge, nose pain, nose congestion, throat pain, throat swelling, mouth pain, mouth swelling, other Genitourinary: Denies: no symptoms, burning, discharge, frequency, flank pain, hematuria, incontinence, pain, urgency, other Neurologic/Psychiatric: Denies: no symptoms, anxiety, depressed, emotional problems, headache, numbness, paresthesia, pre-existing deficit, seizure, tingling, tremors, weakness, other Subjective K low repleted Objective Objective Last 24 Hour Vital Signs Date Time Temp Pulse Resp B/P (MAP) Pulse Ox O2 Delivery O2 Flow Rate FiO2 05/15/20 11:58 97.3 92 18 117/83 (94) 96 05/15/20 08:30 97.2 89 19 111/73 (86) 96 05/15/20 08:15 Room Air 05/15/20 04:00 98.4 81 20 114/80 (91) 96 05/15/20 00:00 98.8 80 18 124/74 (91) 97 05/14/20 21:00 Room Air 05/14/20 20:00 98.6 75 18 115/63 (80) 98 05/14/20 16:00 98.6 101 18 137/87 (104) 98 Intake and Output 05/14/20 05/15/20 19:00 07:00 Intake Total 800 ml Balance 800 ml Intake Oral 800 ml # Voids 3 Laboratory Tests 05/15/20 05:45: White Blood Count 5.8, Red Blood Count 3.70L, Hemoglobin 12.0L, Hematocrit 35.2L , Mean Corpuscular Volume 95, Mean Corpuscular Hemoglobin 32.4H, Mean Corpuscular Hemoglobin Concent 34.1, Red Cell Distribution Width 13.4, Platelet Count 271, Mean Platelet Volume 5.9L, Neutrophils (%) (Auto) 55.8, Lymphocytes (%) (Auto) 33.4, Monocytes (%) (Auto) 8.9, Eosinophils (%) (Auto) 1.2, Basophils (%) (Auto) 0.7, Sodium Level 136, Potassium Level 4.2, Chloride Level 105, Carbon Dioxide Level 23, Anion Gap 8, Blood Urea Nitrogen 12, Creatinine 0.8, Estimat Glomerular Filtration Rate > 60, Glucose Level 76, Calcium Level 8.2L Height (Feet): 6 Height (Inches): 0.00 Weight (Pounds): 160 General Appearance: no apparent distress, alert EENT: PERRL/EOMI Neck: non-tender, normal alignment Cardiovascular: normal peripheral pulses, normal rate Respiratory/Chest: chest wall non-tender, lungs clear Abdomen: normal bowel sounds, non tender Extremities: normal range of motion, non-tender Neurologic: alert Juana Pascual M.D. May 15, 2020 13:37
[2020-05-15 15:20] VITALS: BP 119/72
--- NOTE | 2020-05-15 18:23 | Psychiatric Progress Note ---
Psychiatry Progress Note Psychiatry Progress Note Neurological/Psychiatric: Reports: anxiety, depressed, emotional problems Allergies: Coded Allergies: No Known Allergies (Unverified , 10/20/14) Objective Data Height (Feet): 6 Height (Inches): 0.00 Weight (Pounds): 160 General Appearance: WD/WN, no apparent distress, alert, confused Additional Comments: The patient is confused, disoriented. Mood is agitated. Affect is flat. Thought process, there is a paucity of thought content. Thought content, no suicidal or homicidal ideation. Cognition is impaired. Insight and judgment are impaired. ASSESSMENT: [place] I Dementia and psychotic disorder. [place] II Deferred. [place] III Seizure disorder. [place] IV Low. [place]ocker V 20. PLAN: 1. Risperidone 6 mg at bedtime. 3. Ativan Lavonne Gerber MD May 15, 2020 18:23
--- NOTE | 2020-05-16 14:50 | Cardiology Report ---
APPROVED REPORT EKG Measurement Heart [id number] <Conclusion> Sinus bradycardia Otherwise normal ECG
== END 2020-05-15 15:30 | DRG 690 ==
LOC: EDBD 12:07 → EMR 14:47 → 4E 14:51 → EDBEDREQSVC 20:27 → EDBEDREQ 20:29 → 4E 22:03
DX: N39.0 Urinary tract infection, site not specified (principal); F03.91 Unspecified dementia, unspecified severity, with behavioral disturbance; G40.909 Epilepsy, unspecified, not intractable, without status epilepticus; F79 Unspecified intellectual disabilities; R45.1 Restlessness and agitation; K59.00 Constipation, unspecified; F29 Unspecified psychosis not due to a substance or known physiological condition; R60.0 Localized edema
CPT/HCPCS: 36415; 71045; 80048; 80053; 81003; 82550; 82803; 83605; 83735; 84484; 85025; 85610; 85730; 86710; 87040; 87081; 87086; 93005; 96361; 96374; 99285; J7030; J8499